=== PATIENT | male | born 1955 | race Caucasian/White ===

== ENCOUNTER → 2021-09-09 13:11 | Outpatient (BNVA) | payer OTHER, SELFPAY | PROVIDERS: Referring Provider Nurse Practitioner; Visit Provider Internal Medicine | DX: E11.65 Type 2 diabetes mellitus with hyperglycemia (principal); E11.69 Type 2 diabetes mellitus with other specified complication; E78.2 Mixed hyperlipidemia; Z87.891 Personal history of nicotine dependence; Z79.4 Long term (current) use of insulin; Z79.84 Long term (current) use of oral hypoglycemic drugs | CPT/HCPCS: 99203; 99204 ==

== ENCOUNTER → 2021-09-17 11:26 | Outpatient (BNVA) | payer OTHER, SELFPAY | PROVIDERS: Referring Provider Nurse Practitioner; Visit Provider Surgery | DX: Z12.11 Encounter for screening for malignant neoplasm of colon (principal); F17.210 Nicotine dependence, cigarettes, uncomplicated | CPT/HCPCS: 99203 ==

== ENCOUNTER 2022-03-31 15:44 | Oncology outpatient (recurring) (ONCR) | payer OTHER, SELFPAY | END 2022-04-13 23:59 | disposition home or self-care (01) | PROVIDERS: PCP Emergency Medicine Emergency Medical Services; Visit Provider Internal Medicine Medical Oncology | DX: D64.9 Anemia, unspecified (principal); Z87.891 Personal history of nicotine dependence; Z79.899 Other long term (current) drug therapy | CPT/HCPCS: 80053; 82728; 83540; 83550; 83615; 83883; 84155; 84165; 85025; 85045; 85651; 99204 ==

== ENCOUNTER 2022-04-23 11:43 | Outpatient (CLI) | payer OTHER, SELFPAY ==
[2022-04-23 14:20] LABS: Occult Blood Stool Negative (Negative)
== END 2022-04-23 11:44 | disposition home or self-care (01) ==
LOC: LAB 11:47
PROVIDERS: PCP Emergency Medicine Emergency Medical Services; Visit Provider Internal Medicine Medical Oncology
DX: D64.9 Anemia, unspecified (principal)
CPT/HCPCS: 82270

== ENCOUNTER 2022-05-19 11:15 | Inpatient (IN) | payer OTHER, SELFPAY ==
[2022-05-19] VITALS (94 sets, daily range): BP systolic 86–174; BP diastolic 53–97; PULSE 75–101; RESP 10–34; TEMP 36.2–37; O2SAT 95–100
--- NOTE | 2022-05-19 11:46 | ED_ITS ---
HPI - Altered Mental Status General: Chief Complaint: Altered Mental Status Stated Complaint: diabetic, not taking his meds Time Seen by Provider: 05/19/22 11:43 Limitations: altered mental status History of Present Illness: Mr. Mcrae is a 66-year-old gentleman with history of type 2 diabetes insulin-dependent presents to the emergency department due to altered mental status and generalized illness. He began having flulike symptoms approximately 3 days ago and has progressively worsened. 2 days ago he was still able to get up to eat a little bit however was essentially found in bed confused with deep respirations by his brother earlier today. Endorses associated nausea, vomiting, abdominal pain as well as shortness of breath and cough. Intensity symptoms is severe. Course has worsened. He reportedly has not been taking his insulin or other medications. History somewhat limited by mental status. Onset (ago): day(s) Severity: severe Consistency of symptoms: Getting Worse Context: diabetes Review of Systems General: Reports: ROS unobtainable due to mental status PFS ED PFSH: Medical History Benign prostatic hyperplasia COPD (chronic obstructive pulmonary disease) Degenerative arthritis Diabetes type 2, uncontrolled Essential (primary) hypertension Mixed hyperlipidemia due to type 2 diabetes mellitus Surgical History No pertinent past surgical history Family History Father Gout Mother No problems noted. Social History Smoking and tobacco status: former smoker Second hand smoke exposure: No Smoking risk assessment/counseling performed?: No Alcohol intake: current Alcohol intake frequency: holidays/special occasions only Alcohol type: beer Desire information about alcohol rehabilitation?: No Counseling given: No Desire information about substance/drug rehabilitation?: No Counseling given: No Adopted: No Caregiver/support person: No Lives independently: Yes Household members: none Housing: House Marital status: Single Highest education level completed: High School Graduate service: Yes Current occupational status: retired History of recent travel: No Physical Exam Const: COMMON NORMALS: alert GENERAL APPEARANCE: cooperative, well developed and ill appearing HENMT: COMMON NORMALS: normocephalic and atraumatic HEAD & SCALP: normocephalic and atraumatic OTHER: Very dry mucous membranes Eye: COMMON NORMALS: Equal, round and reactive pupils present and no scleral icterus SCLERA: sclerae normal PUPIL: Yes Equal, round and reactive pupils present Neck/C-Spine: COMMON NORMALS: supple GENERAL: Yes trachea midline Resp: EFFORT & INSPECTION: Yes able to speak in complete sentences and Yes tachypneic OTHER: Kussmaul respirations Cardio: COMMON NORMALS: regular rate and regular rhythm RATE: regular rate RHYTHM: regular rhythm GI: COMMON NORMALS: Soft to palpation PALPATION: Yes Soft to palpation, Yes Tenderness to palpation present (GI), No Guarding due to palpation present (GI) and No Rigid due to palpation Extremity: GENERAL: Yes normal exam except as noted and No edema Neuro: COMMON NORMALS: moves all extremities SENSORIUM/ORIENTATION: Yes alert and Yes Orientation impaired (Mildly) Course Vital Signs: Vital signs: Vital Signs Temperature 98.8 F 05/22/22 12:18 Pulse Rate 64 05/22/22 12:18 Respiratory Rate 16 05/22/22 12:18 Blood Pressure 125/76 05/22/22 12:18 Pulse Oximetry 98 05/22/22 12:18 Oxygen Delivery Me thod 05/22/22 11:47 MDM - Altered Mental Status Medical Decision Making 66-year-old gentleman with history of insulin-dependent diabetes presenting with a few day history of generalized illness and progressive altered mental status/weakness. Upon initial exam patient is ill-appearing and has findings consistent with diabetic ketoacidosis. Care glucose greater than 600. Initial ABG 6.95/<15.4/131 EKG demonstrates first-degree AV block, sinus rhythm, peaked T waves, no STEMI. Labs notable for leukocytosis, mild macrocytic anemia, thrombocytosis. Metabolic panel with spurious hyponatremia, significantly decreased bicarb, elevated creatinine, significantly elevated glucose, lactic acid also elevated. Additionally positive for influenza. Chest x-ray with no lobar consolidation or pneumothorax. Head CT negative for acute intracranial pathology During ED course patient treated with IV fluid, calcium, insulin drip. Upon serial reassessment patient remains markedly ill though mental status has improved mildly. Most likely etiology of patient's symptoms is fluid induced diabetic ketoacidosis with severe metabolic derangements and altered mental status. The results of ED evaluation were discussed with the patient and his brother including plan for admission due to requirement for level of care not available if discharged to prevent significant worsening/deterioration. Patient agreeable with plan. Discussed with hospitalist service who was agreeable to admit patient. Medical Records I reviewed the patient's medical records. Lab Data I reviewed the patient's lab results. 05/22/22 03:00 05/22/22 03:00 Radiology Impressions Chest X-Ray 05/19/22 11:51 IMPRESSION: 1. Faint right lung density of unclear etiology 2. Otherwise negative chest examination Head CT 05/19/22 12:32 Impression: 1. Moderate cerebral atrophy. 2. Acute and chronic pansinusitis. Abdomen Ultrasound 05/20/22 13:41 IMPRESSION: Hyperechoic soft tissue nodules within the anterior abdominal wall with superficial tracts. These are probably injection sites. Due to the track formation less likely lipomas. Laboratory Results WBC 23.8 10^3/uL (4.0-10.0) H 05/19/22 11:50 RBC 4.01 10^6/uL (4.1-5.3) L 05/19/22 11:50 Hgb 11.6 g/dL (11.7-16.6) L 05/19/22 11:50 Hct 40.2 % (42.0-52.0) L 05/19/22 11:50 MCV 100.2 fl (80-94) H 05/19/22 11:50 MCH 28.9 pg (28.0-34.0) 05/19/22 11:50 MCHC 28.9 g/dL (30.0-36.0) L 05/19/22 11:50 RDW 14.4 % (12.1-15.1) 05/19/22 11:50 Plt Count 884 10^3/cmm (130-400) H 05/19/22 11:50 MPV 10.3 fL (7.4-10.4) 05/19/22 11:50 Neut % (Auto) 77.5 % 05/19/22 11:50 Lymph % (Auto) 5.0 % 05/19/22 11:50 [place] % (Auto) 7.3 % 05/19/22 11:50 Eos % (Auto) 0.0 % 05/19/22 11:50 Baso % (Auto) 0.4 % 05/19/22 11:50 Neut # (Auto) 18.43 10^3/uL (1.8-7.7) H 05/19/22 11:50 Lymph # (Auto) 1.2 10^3/uL (0.8-4.8) 05/19/22 11:50 [place] # (Auto) 1.7 10^3/uL (0.2-0.9) H 05/19/22 11:50 Eos # (Auto) 0.0 10^3/uL (0.0-0.8) 05/19/22 11:50 Baso # (Auto) 0.1 10^3/uL (0.0-0.1) 05/19/22 11:50 Nucleated RBC % (auto) 0.1 % 05/19/22 11:50 Nucleated RBCs # 0.0 /100WBC 05/19/22 11:50 Specimen Type Arterial 05/19/22 12:12 Sample Site Radial, left 05/19/22 12:12 ABG pH 6.95 (7.35-7.45) L* 05/19/22 12:12 ABG pCO2 < 15.4 mmHg (35-45) L* 05/19/22 12:12 ABG pO2 131.0 mmHg (80.0-100.0) H 05/19/22 12:12 ABG HCO3 Not Reportable 05/19/22 12:12 ABG Base Excess Not Reportable 05/19/22 12:12 Amadou Test Pos 05/19/22 12:12 Hematocrit 35.3 % (42-52) L 05/19/22 12:12 O2 Delivery Device Room air 05/19/22 12:12 FiO2 21.0 % 05/19/22 12:12 Inside Sales ID glc 05/19/22 12:12 Blood Gas Notified Time 1230 05/19/22 12:12 Sodium 123 mmol/L (136-145) L 05/19/22 11:50 Potassium 6.9 mmol/L (3.5-5.1) H* 05/19/22 11:50 Chloride 83 mmol/L (98-107) L 05/19/22 11:50 Carbon Dioxide 3 mmol/L (22-29) L* 05/19/22 11:50 Anion Gap 43.9 (5-19) H 05/19/22 11:50 BUN 60 mg/dL (8-23) H 05/19/22 11:50 Creatinine 2.1 mg/dL (0.7-1.2) H 05/19/22 11:50 GFR Calculation 32.0 mL/min (90-130) L 05/19/22 11:50 Glucose 848 mg/dL (65-115) H* 05/19/22 11:50 POC Glucose > 600 mg/dL (70-110) H* 05/19/22 16:53 Calculated Osmolality 315 mOsm/kg (285-295) H 05/19/22 11:50 Lactate 5.6 mmol/L (0.5-2.2) H* 05/19/22 12:25 Calcium 9.6 mg/dL (8.5-10.5) 05/19/22 11:50 Phosphorus 10.5 mg/dL (2.5-4.5) H* 05/19/22 11:50 Magnesium 3.3 mg/dL (1.7-2.3) H 05/19/22 11:50 Total Bilirubin 0.2 mg/dL (0.15-1.2) 05/19/22 11:50 AST 14 U/L (0-40) 05/19/22 11:50 ALT 21 U/L (0-41) 05/19/22 11:50 Alkaline Phosphatase 206 U/L (40-130) H 05/19/22 11:50 Creatine Kinase 49 U/L (39-308) 05/19/22 11:50 Troponin T Baseline 20 ng/L (0-15) H 05/19/22 11:50 Troponin T 120 Minute 21.26 ng/L (0-15) H 05/19/22 14:36 Delta Troponin T 1.26 ABS# (0-10) 05/19/22 14:36 Troponin T Hi Sens 6Hr 21.27 ng/L (0-15) H 05/19/22 17:55 Troponin T Hi Sens 6Hr Delta 1.27 ng/L (0-12) 05/19/22 17:55 Total Protein 7.2 g/dL (6.6-8.7) 05/19/22 11:50 Albumin 3.1 g/dL (3.5-5.2) L 05/19/22 11:50 Globulin 4.1 g/dL (1.3-4.6) 05/19/22 11:50 TSH 0.33 uIU/mL (0.27-4.20) 05/19/22 11:50 Urine Color Yellow (Yellow) 05/19/22 15:00 Urine Appearance Clear (CLEAR) 05/19/22 15:00 Urine pH 5 (5-7) 05/19/22 15:00 Ur Specific Sulphur 1.020 (1.005-1.030) 05/19/22 15:00 Urine Protein Neg (Negative) 05/19/22 15:00 Urine Glucose (UA) 4+ (Normal) H 05/19/22 15:00 Urine Ketones 2+ (Negative) H 05/19/22 15:00 Urine Blood Neg (Negative) 05/19/22 15:00 Urine Nitrate Negative (Negative) 05/19/22 15:00 Urine Bilirubin Neg (Negative) 05/19/22 15:00 Urine Urobilinogen Norm mg/dL (Negative) 05/19/22 15:00 Ur Leukocyte Esterase Negative (Negative) 05/19/22 15:00 Nasal Influ A H1 2009 PCR Detected (NOT DETECT) A 05/19/22 12:12 Serum Ketones Positive (Negative) H 05/19/22 11:50 Adenovirus (PCR) Not detected (NOT DETECT) 05/19/22 12:12 C. pneumoniae DNA (PCR) Not detected (NOT DETECT) 05/19/22 12:12 Coronavirus 229E (PCR) Not detected (NOT DETECT) 05/19/22 12:12 Human Metapneumovir PCR Not detected (NOT DETECT) 05/19/22 12:12 Influenza A (H1) PCR Not detected (NOT DETECT) 05/19/22 12:12 Influenza A (H3) PCR Not detected (NOT DETECT) 05/19/22 12:12 Influenza Type A (PCR) Detected (NOT DETECT) A 05/19/22 12:12 Influenza Type B (PCR) Not detected (NOT DETECT) 05/19/22 12:12 M. pneumoniae (PCR) Not detected (NOT DETECT) 05/19/22 12:12 Parainfluenza 1 (PCR) Not detected (NOT DETECT) 05/19/22 12:12 Parainfluenza 2 (PCR) Not detected (NOT DETECT) 05/19/22 12:12 Parainfluenza 3 (PCR) Not detected (NOT DETECT) 05/19/22 12:12 Parainfluenza 4 (PCR) Not detected (NOT DETECT) 05/19/22 12:12 RSV Type A (PCR) Not detected (NOT DETECT) 05/19/22 12:12 RSV Type B (PCR) Not detected (NOT DETECT) 05/19/22 12:12 Entero/Rhino (PCR) Not detected (NOT DETECT) 05/19/22 12:12 SARS-CoV-2 (PCR) Not detected (NOT DETECT) 05/19/22 12:12 Critical Care Time Critical Care Time: Critical Care Time: Yes Total Critical Care Time: 80 Attestation: Due to a high probability of clinically significant, possibly life threatening deterioration, the patient required my highest level of attention and preparedness to intervene emergently and I personally spent this critical care time directly and personally managing the patient. This critical care time included obtaining a history; examining the patient; pulse oximetry; ordering and review of laboratory and imaging studies; arranging urgent treatment with development of a management plan; evaluation of patient's response to treatment; frequent reassessment; and, discussions with other providers as applicable. It was exclusive of separately billable procedures. Primary system involved is metabolic and infectious disease Discharge Plan Discharge Patient Disposition: Admitted As Inpatient Admit Provider: Hermilo Stevens Clinical Impression: Diabetic ketoacidosis associated with type 2 diabetes mellitus, Altered mental status, Influenza A, Leukocytosis, Thrombocytosis, Anemia, macrocytic, Metabolic acidosis, Dehydration, LATASHA (acute kidney injury) Condition: Stable Discharge Diet: Diabetic Discharge Activity: Increase activity as tolerated Coding Level of Care Code ED Can Filling And Closing Machine Tender for Chg Fwd Exam Comprehensive
--- NOTE | 2022-05-19 11:51 | ECG_ITS ---
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 Measurements Intervals [place] Rate: 79 P: 82 LA: 217 QRS: 84 QRSD: 110 T: 75 QT: 377 QTc: 434 Interpretive Statements SINUS RHYTHM WITH FIRST DEGREE AV BLOCK TALL T-WAVES, SUGGESTS HYPERKALEMIA No previous ECG available for comparison Electronically Signed On 05-19-2022 12:50:50 SAMPLER AND TEST PREPARER by Maryan Faria M.D. [email or web address]/store/[id number]
--- NOTE | 2022-05-19 11:51 | XRR_ITS ---
PROCEDURE INFORMATION: Exam: XR Chest Exam date and time: 05/19/2022 12:35 PM Age: 66 years old Clinical indication: Shortness of breath; Additional info: SOB, AMS TECHNIQUE: Imaging protocol: Radiologic exam of the chest. Views: 1 view. COMPARISON: No relevant prior studies available. FINDINGS: Lungs: There is a faint parenchymal density in the right mid lung measuring 17 mm. This finding is in the projection of the 7th posterior rib. There are no old examinations available to compare this finding with. Therefore oblique views of the chest is recommended to further evaluate this finding . Pleural spaces: Unremarkable. No pleural effusion. No pneumothorax. Heart/Mediastinum: Unremarkable. No cardiomegaly. Bones/joints: Unremarkable. XR/XR chest 1V portable 92450 IMPRESSION: 1. Faint right lung density of unclear etiology 2. Otherwise negative chest examination
[2022-05-19 12:03] LABS: Glucose Point of Care > 600 mg/dL (70-110)
[2022-05-19] MEDS: sodium chloride 0.9% 1,000 ML 999 ML IV ×2 (12:08→12:50)
[2022-05-19 12:10] LABS: Basophils # 0.1 10^3/uL (0.0-0.1); Basophils % 0.4 %; Hematocrit 40.2 % (42.0-52.0); Hemoglobin 11.6 g/dL (11.7-16.6); Lymphocytes # 1.2 10^3/uL (0.8-4.8); Mean Corpuscular HGB Conc 28.9 g/dL (30.0-36.0); Mean Corpuscular Hemoglobin 28.9 pg (28.0-34.0); Mean Corpuscular Volume 100.2 fl (80-94); Mean Platelet Volume 10.3 fL (7.4-10.4); Monocytes # 1.7 10^3/uL (0.2-0.9); Monocytes % 7.3 %; Neutrophils # 18.43 10^3/uL (1.8-7.7); Neutrophils % 77.5 %; Nucleated Red Blood Cells % 0.1 %; Platelet Count 884 10^3/cmm (130-400); Red Blood Count 4.01 10^6/uL (4.1-5.3); Red Cell Distribution Width 14.4 % (12.1-15.1); White Blood Count 23.8 10^3/uL (4.0-10.0)
[2022-05-19 12:12] LABS: Slide Review Slide Review Perform
[2022-05-19 12:21] LABS: Ketone (Acetest) Serum Positive (Negative)
[2022-05-19 12:25] LABS: Arterial Blood Gas Hematocrit 35.3 % (42-52); Blood Gas Allen Test Pos; Blood Gas Operator Identificat glc; Blood Gas Sample Site Radial, left; Blood Gas Sample Type Arterial; Oxygen Device ROOM AIR
[2022-05-19 12:31] LABS: Troponin(5th) Baseline 20 ng/L (0-15)
[2022-05-19 12:32] LABS: ABG PH Result 6.95 (7.35-7.45)
--- NOTE | 2022-05-19 12:32 | CT_ITS ---
WS: [id number] CT scan of the head, 05/19/2022 Clinical Data: ams Comparison: None. DLP: 1106.[address] scans at [facility] use at least one of these dose optimization techniques: automated e xposure control; mA and/or kV adjustment per patient size (includes targeted exams where dose is matc hed to clinical indication); or iterative reconstruction. Findings: The ventricular system is moderately dilated without shift. The sulci are enlarged. No recent infarct or hemorrhage is seen. There are no abnormal intracerebral masses. The cerebellum and brainstem are not remarkable. Bony windows of the skull and skull base show no fractures or erosions. The mastoid air cells, clinical nursing intern al auditory canals, sella turcica and intraorbital contents are unremarkable. There are air-fluid le vels in the sphenoid, ethmoid and right maxillary sinuses along with diffuse mucoperiosteal thickenin g consistent with acute and chronic pansinusitis. CT/CT head wo con* 25001 Impression: 1. Moderate cerebral atrophy. 2. Acute and chronic pansinusitis.
[2022-05-19 12:33] LABS: ABG PCO2 < 15.4 mmHg (35-45)
[2022-05-19 12:34] LABS: Blood Gas CCRB Time 1230
[2022-05-19 12:38] LABS: Alanine Aminotransferase 21 U/L (0-41); Albumin Level 3.1 g/dL (3.5-5.2); Alkaline Phosphatase 206 U/L (40-130); Aspartate Amino Transferase 14 U/L (0-40); Blood Urea Nitrogen 60 mg/dL (8-23); Calcium 9.6 mg/dL (8.5-10.5); Chloride 83 mmol/L (98-107); Creatine Phosphokinase 49 U/L (39-308); Globulin 4.1 g/dL (1.3-4.6); Magnesium 3.3 mg/dL (1.7-2.3); Sodium 123 mmol/L (136-145); Thyroid Stimulating Hormone 0.33 uIU/mL (0.27-4.20); Total Bilirubin 0.2 mg/dL (0.15-1.2); Total Protein 7.2 g/dL (6.6-8.7)
[2022-05-19 12:47] LABS: Osmolality Calculated 315 mOsm/kg (285-295)
[2022-05-19 12:51] LABS: Anion Gap 43.9 (5-19); Carbon Dioxide 3 mmol/L (22-29); Glucose 848 mg/dL (65-115); Phosphorus 10.5 mg/dL (2.5-4.5)
[2022-05-19 12:52] LABS: Potassium 6.9 mmol/L (3.5-5.1)
[2022-05-19 13:04] LABS: Lactate (Lactic Acid level) 5.6 mmol/L (0.5-2.2)
--- NOTE | 2022-05-19 13:51 | ECG_ITS ---
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 Measurements Intervals [place] Rate: 89 P: 86 NC: 224 QRS: 82 QRSD: 122 T: 73 QT: 369 QTc: 450 Interpretive Statements SINUS RHYTHM WITH FIRST DEGREE AV BLOCK MODERATE INTRAVENTRICULAR CONDUCTION DELAY [110+ ms QRS DURATION] TALL T-WAVES, SUGGESTS HYPERKALEMIA Compared to ECG 05/19/2022 12:22:50 Intraventricular conduction delay now present Electronically Signed On 05-19-2022 18:52:27 BEVERAGE HOST by Maryan Faria M.D. [id number]
[2022-05-19 13:55] LABS: Glucose Point of Care > 600 mg/dL (70-110)
[2022-05-19] MEDS: insulin regular-human 250 UNIT in sodium chloride 0.9% 250 ML 22.2 UNIT IV (13:58)
[2022-05-19 14:00] LABS: Adenovirus Not Detected (NOT DETECT); Chlamydia Pneumoniae Not Detected (NOT DETECT); Coronavirus 229E,HKU1,NL63,OC4 Not Detected (NOT DETECT); Human Metapneumovirus Not Detected (NOT DETECT); Human Rhinovirus/Enterovirus Not Detected (NOT DETECT); Influenza A Detected (NOT DETECT); Influenza A H1 Not Detected (NOT DETECT); Influenza A H1-2009 Detected (NOT DETECT); Influenza A H3 Not Detected (NOT DETECT); Influenza B Not Detected (NOT DETECT); Mycoplasma Pneumoniae Not Detected (NOT DETECT); Parainfluenza Virus Type 1 Not Detected (NOT DETECT); Parainfluenza Virus Type 2 Not Detected (NOT DETECT); Parainfluenza Virus Type 3 Not Detected (NOT DETECT); Parainfluenza Virus Type 4 Not Detected (NOT DETECT); Respiratory Syncytial Virus A Not Detected (NOT DETECT); Respiratory Syncytial Virus B Not Detected (NOT DETECT); SARS-COV-2 Not Detected (NOT DETECT)
[2022-05-19] MEDS: calcium gluconate 0.9% NaCL 1 GM/50 ML PREMIX IV (15:09)
--- NOTE | 2022-05-19 15:15 | P.HP_ITS ---
Providers/Chief Complaint Primary Care Provider: Joon Santiago DO Chief Complaint: diabetic, not taking his meds History of Present Illness 66-year-old gentleman with history of DM2, COPD, BPH, HTN, HLD, started feeling unwell about 4-5 days ago, with malaise, fevers, generalized weakness, cough, intermittently productive of yellow phlegm with burning in his chest, as well as intermittent nausea, vomiting and diarrhea episodes. His mother was ill the week before that. His brother has been helping him at home. He has been too weak to be able to eat or drink. Has not been able to take his medications including his insulin. In ER he tested positive for influenza A. He is afebrile here, with leukocytosis 20.8, thrombocytosis 884, hemoglobin 11.6, with metabolic acidosis, 6.95/<15.4/131. Sodium 123, potassium 6.9, chloride 83. Bicarb 3. Anion gap 43.9. BUN 50. Creatinine 2.1. Glucose 848. Lactate 5.6. Phos 10.5. Mag 3.3. Alk phos 206. Baseline troponin 20. Albumin 3.1. TSH 0.33. Positive serum ketones. Urinalysis pending. EKG with first-degree AV block, tall T waves. Head CT moderate cerebral atrophy, acute on chronic pansinusitis. Chest x-ray with faint right lung density of unclear etiology. Otherwise negative chest examination. Received calcium gluconate, 2 L NS boluses, started on insulin drip. He is groggy and lethargic, brother helps fill in history. Review of Systems Const: Reports: fever(s), change in appetite, fatigue and malaise Eyes: Denies: change in vision, eye discomfort or eye redness ENMT: Denies: throat pain, oral sores or ear or mastoid pain Card: Denies: chest pain, edema, pre-syncope or dyspnea on exertion Resp: Reports: productive cough and change in phlegm color; Denies: dyspnea or hemoptysis GI: Reports: nausea, vomiting and diarrhea; Denies: abdominal pain, constipation, hematochezia or melena : Denies: flank pain, difficulty urinating, urinary frequency or hematuria Musc: Denies: back pain, joint swelling or joint redness Skin/Breast: Denies: rash or new lesions Neuro: Denies: headache(s), numbness in extremities, weakness in extremities, dizziness or seizure-like activity Herrera/Lymph: Denies: easy bleeding or tender lymph nodes All/Imm: Denies: urticaria or tongue swelling Medications/Allergies Home Medications Medication Instructions Recorded Confirmed Last Taken Type albuterol sulfate 90 mcg/actuation 2 puff inhalation QID 09/09/21 05/19/22 Unknown History aerosol inhaler (ProAir HFA) glipizide 10 mg tablet 20 mg PO BID 09/09/21 05/19/22 Unknown History metformin 500 mg tablet,extended 500 mg PO BID 09/09/21 05/19/22 Unknown History release 24 hr acarbose 50 mg tablet 50 mg PO TID 03/31/22 05/19/22 Unknown History ferrous sulfate 325 mg (65 mg 325 mg PO DAILY 03/31/22 05/19/22 Unknown History iron) tablet insulin glargine 100 unit/mL 50 unit SUBCUT DAILY 03/31/22 05/19/22 Unknown History subcutaneous solution naproxen 500 mg tablet 500 mg PO BID 03/31/22 05/19/22 Unknown History fluticasone 250 mcg-salmeterol 50 1 inh inhalation BID 05/19/22 05/19/22 Unknown History mcg/dose blistr powdr for inhalation lisinopril 10 mg tablet 5 mg PO DAILY 05/19/22 05/19/22 Unknown History omega-3 fatty acids 500 mg capsule 1,000 mg PO BID 05/19/22 05/19/22 Unknown History Allergies Allergy/AdvReac Type Severity Reaction Status Date / Time No Known Allergies Allergy Verified 05/19/22 12:08 PFSH Acute PFSH: Medical History Benign prostatic hyperplasia COPD (chronic obstructive pulmonary disease) Degenerative arthritis Diabetes type 2, uncontrolled Essential (primary) hypertension Mixed hyperlipidemia due to type 2 diabetes mellitus Surgical History No pertinent past surgical history Family History Father Gout Mother No problems noted. Social History Smoking and tobacco status: former smoker Second hand smoke exposure: No Smoking risk assessment/counseling performed?: No Alcohol intake: current Alcohol intake frequency: holidays/special occasions only Alcohol type: beer Desire information about alcohol rehabilitation?: No Counseling given: No Desire information about substance/drug rehabilitation?: No Counseling given: No Adopted: No Caregiver/support person: No Lives independently: Yes Household members: none Housing: House Marital status: Single Highest education level completed: High School Graduate service: Yes Current occupational status: retired History of recent travel: No Vitals/I&O/Wt Last Vital Signs Temp 97.1 F L 05/19/22 11:39 Pulse 83 05/19/22 12:45 Resp 25 H 05/19/22 12:45 BP 129/66 05/19/22 12:30 Pulse Ox 95 05/19/22 11:39 05/19/22 05/19/22 05/19/22 06:59 14:59 22:59 Intake Total 1000 / 1000 Balance 1000 / 1000 Weight last 48 hrs Weight 56.699 kg Physical Exam Narrative: Accompanied by his brother. Const: GENERAL APPEARANCE: cooperative ORIENTATION/CONSCIOUSNESS: Yes lethargic OTHER: [place]IL HENMT: COMMON NORMALS: oropharynx normal OTHER: Dry MM Neck/C-Spine: COMMON NORMALS: no JVD Resp: COMMON NORMALS: normal respiratory effort and clear to auscultation bilaterally AUSCULTATION: clear to auscultation bilaterally Cardio: COMMON NORMALS: no JVD, regular rhythm, S1 normal heart sound present, S2 normal heart sound present and No murmurs present (Cardio) RHYTHM: regular rhythm HEART SOUNDS: S1 normal heart sound present and S2 normal heart sound present GI: COMMON NORMALS: Normal to inspection, nondistended, normoactive bowel sounds present, Soft to palpation and non-tender PALPATION: Yes Soft to palpation Extremity: COMMON NORMALS: no joint enlargement and no pedal edema Neuro: COMMON NORMALS: patient oriented x3 and moves all extremities SENS ORIUM/ORIENTATION: Yes alert Skin: COMMON NORMALS: no rashes or lesions noted GENERAL SKIN EXAM: no rashes or lesions noted Data 05/19/22 11:50 05/19/22 11:50 Micro: Microbiology 05/19/22 12:25 Blood Culture - Preliminary Blood SPECIMEN COLLECTED 05/19/22 12:25 Blood Culture - Preliminary Blood SPECIMEN COLLECTED A&P Assessment and plan (1) Diabetic ketoacidosis associated with type 2 diabetes mellitus: Continue IV hydration, insulin drip. Recheck chemistries including magnesium, Phos. Monitor on telemetry. Complete troponin EKG series. Continue care in ICU. Measure I&O, weights. NPO, sips, chips, meds. DVT prophylaxis with heparin. PPI GI prophylaxis. Zofran as needed for nausea. (2) LATASHA (acute kidney injury): Suspected prerenal, although may be ATN given he is eating or drink well and days, nausea and vomiting. Home medications also with naproxen. Hold NSAID and would discontinue at discharge. (3) Altered mental status: Lethargic, during the day, but does provide history. He is also hard of hearing. Mild acute encephalopathy possible secondary to acute metabolic encephalopathy with DKA, metabolic status, LATASHA, influenza A. (4) Influenza A: Due to the area of illness although is outside of usual window for influenza we will start Tamiflu as per discussion with his brother. (5) Dehydration: NS 150 mL/h IV hydration, switch to D5 half-normal and glucose is decreasing below 250. (6) Leukocytosis: Suspect this is reactive and with dehydration and acute illness. UA now collected, with resolution of acute infection. Chest x-ray faint right lung density of unclear etiology measuring 17 mm. Otherwise no focal pneumonia. Having COPD distribution. Influenza pneumonia. (7) Thrombocytosis: Secondary to hemoconcentration, dehydration, acute phase reactant. (8) Anemia, macrocytic: Follow-up blood counts. Will need follow-up. He is on iron supplement at home. (9) Metabolic acidosis: DKA hypoperfusion dehydration, lactic acidosis. As above. (10) COPD exacerbation: Influenza pneumonia, episodes of COPD laceration with cough, productive green sputum. Air entry is not bad. For now we will give ceftriaxone empirically. DuoNebs and desonide nebs. Oxygen support as needed. Plan DM2, COPD, BPH, HTN, HLD Attestations Medical Necessity Statement*: Admission of 2 midnights anticipated for assessment management of DKA, influenza A pneumonia, COPD exacerbation, hydration acute encephalopathy. Critical Care Time: The high probability of a clinically significant, sudden or life threatening deterioration of the patient's endocrine, acid-base system(s) required my full and direct attention, intervention and personal ma nagement. The critical care time is as shown. This time is in addition to time spent performing any reported procedures but includes the following: x Data and vital sign review and interpretation x Patient assessment, examination and intervention x Documentation x Medication orders and management Critical Care Time (min): 55 Coding Level of Care Code Acute [place] Wellness Coordinator for [facility] Fwd Diagnoses Diabetic ketoacidosis associated with type 2 diabetes mellitus E11.10 LATASHA (acute kidney injury) N17.9 Altered mental status R41.82 Influenza A J10.1 Dehydration E86.0 Leukocytosis D72.829 Thrombocytosis D75.839 Anemia, macrocytic D53.9 Metabolic acidosis E87.20 COPD exacerbation J44.1
[2022-05-19 15:22] LABS: Add Urine Microscopic? NO; Charge for UA Resulting for Rev
[2022-05-19 15:25] LABS: Bilirubin Urine Neg (Negative); Blood Urine Neg (Negative); Glucose Urine UA 4+ (Normal); Ketones Urine 2+ (Negative); Leukocyte Esterase Urine Negative (Negative); Nitrate Urine Negative (Negative); Protein Urine Neg (Negative); Urine Appearance Clear (CLEAR); Urine Color Yellow (Yellow); Urobilinogen Urine Norm (Negative); pH Urine 5 (5-7)
[2022-05-19 15:27] LABS: Glucose Point of Care > 600 mg/dL (70-110)
[2022-05-19 15:42] LABS: Troponin 5 2HR 21.26 ng/L (0-15)
[2022-05-19 15:44] LABS: Troponin 5 2HR Delta 1.26 ABS# (0-10)
[2022-05-19] MEDS: sodium chloride 0.9% 1,000 ML 150 ML IV ×2 (16:56→23:25)
[2022-05-19 18:24] LABS: Glucose Point of Care > 600 mg/dL (70-110)
[2022-05-19 18:24] LABS: Glucose Point of Care 477 mg/dL (70-110)
[2022-05-19 18:54] LABS: Troponin 5 6HR 21.27 ng/L (0-15)
[2022-05-19 18:55] LABS: Troponin 5 6HR Delta 1.27 ng/L (0-12)
--- NOTE | 2022-05-19 18:55 | ECG_ITS ---
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 Measurements Intervals [place] Rate: 92 P: 81 ND: 183 QRS: 76 QRSD: 92 T: 77 QT: 332 QTc: 413 Interpretive Statements SINUS RHYTHM MINIMAL VOLTAGE CRITERIA FOR LVH, CONSIDER NORMAL VARIANT [MEETS CRITERIA IN ONE OF: R(aVL), S(V1), R(V5), R(V5/V6)+S(V1)] Compared to ECG 05/19/2022 13:48:50 First degree AV block no longer present Intraventricular conduction delay no longer present Electronically Signed On 05-20-2022 7:47:58 TAPE MAKER by Maryan Faria M.D. [id number]
[2022-05-19 19:41] LABS: Glucose Point of Care 464 mg/dL (70-110)
[2022-05-19] MEDS: ipratropium-albuterol 3 mL Neb INHALATION (20:21)
[2022-05-19] MEDS: budesonide 0.5 mg/2 mL Neb 0.25 MG INHALATION (20:21)
[2022-05-19] MEDS: pantoprazole 40 mg SDV IVP (20:56)
[2022-05-19] MEDS: oseltamivir phosphate 75 mg Capsule PO (20:57)
[2022-05-19] MEDS: heparin 5,000 unit/mL INJ 1 mL 5000 UNIT SUBCUT (20:57)
[2022-05-19] MEDS: cefTRIAXone 1,000 MG in sodium chloride 0.9% (plus) 50 ML 100 MG IV (20:57)
[2022-05-19 22:09] LABS: Anion Gap 23.7 (5-19); Blood Urea Nitrogen 55 mg/dL (8-23); Calcium 8.8 mg/dL (8.5-10.5); Carbon Dioxide 12 mmol/L (22-29); Chloride 99 mmol/L (98-107); Glucose 323 mg/dL (65-115); Osmolality Calculated 298 mOsm/kg (285-295); Potassium 4.7 mmol/L (3.5-5.1); Sodium 130 mmol/L (136-145)
[2022-05-19 22:39] LABS: Magnesium 2.4 mg/dL (1.7-2.3); Phosphorus 2.9 mg/dL (2.5-4.5)
[2022-05-19 22:44] LABS: Glucose Point of Care 373 mg/dL (70-110)
[2022-05-19 22:44] LABS: Glucose Point of Care 438 mg/dL (70-110)
[2022-05-19 22:44] LABS: Glucose Point of Care 335 mg/dL (70-110)
[2022-05-20] VITALS (18 sets, daily range): BP systolic 94–152; BP diastolic 49–91; PULSE 56–84; RESP 0–22; TEMP 35.9–37; O2SAT 92–100
[2022-05-20] MEDS: dextrose 5%-sod chloride 0.45% 1,000 ML 150 ML IV ×3 (01:12→19:24)
[2022-05-20 03:03] LABS: Basophils # 0.1 10^3/uL (0.0-0.1); Basophils % 0.2 %; Hematocrit 28.2 % (42.0-52.0); Hemoglobin 9.3 g/dL (11.7-16.6); Lymphocytes % 4.8 %; Mean Corpuscular Hemoglobin 29.1 pg (28.0-34.0); Mean Corpuscular Volume 88.1 fl (80-94); Mean Platelet Volume 9.3 fL (7.4-10.4); Monocytes # 2.2 10^3/uL (0.2-0.9); Monocytes % 10.9 %; Neutrophils # 16.18 10^3/uL (1.8-7.7); Neutrophils % 80.3 %; Nucleated Red Blood Cells % 0 %; Platelet Count 497 10^3/cmm (130-400); Red Cell Distribution Width 13.7 % (12.1-15.1); White Blood Count 20.2 10^3/uL (4.0-10.0)
[2022-05-20 03:39] LABS: Alanine Aminotransferase 16 U/L (0-41); Albumin Level 2.6 g/dL (3.5-5.2); Alkaline Phosphatase 141 U/L (40-130); Anion Gap 15.2 (5-19); Aspartate Amino Transferase 13 U/L (0-40); Blood Urea Nitrogen 41 mg/dL (8-23); Calcium 8.4 mg/dL (8.5-10.5); Carbon Dioxide 20 mmol/L (22-29); Chloride 106 mmol/L (98-107); Glucose 149 mg/dL (65-115); Magnesium 2.2 mg/dL (1.7-2.3); Osmolality Calculated 297 mOsm/kg (285-295); Phosphorus 2.5 mg/dL (2.5-4.5); Potassium 4.2 mmol/L (3.5-5.1); Sodium 137 mmol/L (136-145); Total Bilirubin 0.2 mg/dL (0.15-1.2); Total Protein 5.6 g/dL (6.6-8.7)
[2022-05-20 06:06] LABS: Glucose Point of Care 151 mg/dL (70-110)
[2022-05-20 06:06] LABS: Glucose Point of Care 144 mg/dL (70-110)
[2022-05-20 06:06] LABS: Glucose Point of Care 128 mg/dL (70-110)
[2022-05-20 06:06] LABS: Glucose Point of Care 264 mg/dL (70-110)
[2022-05-20 06:06] LABS: Glucose Point of Care 287 mg/dL (70-110)
[2022-05-20 06:07] LABS: Glucose Point of Care 156 mg/dL (70-110)
[2022-05-20 06:07] LABS: Glucose Point of Care 148 mg/dL (70-110)
[2022-05-20 06:07] LABS: Glucose Point of Care 187 mg/dL (70-110)
[2022-05-20 07:00] LABS: Glucose Point of Care 176 mg/dL (70-110)
[2022-05-20] MEDS: ipratropium-albuterol 3 mL Neb INHALATION ×4 (07:56→20:02)
[2022-05-20] MEDS: budesonide 0.5 mg/2 mL Neb 0.25 MG INHALATION ×2 (07:56→20:03)
[2022-05-20 08:10] LABS: Glucose Point of Care 204 mg/dL (70-110)
[2022-05-20] MEDS: oseltamivir phosphate 75 mg Capsule PO ×2 (08:57→17:01)
[2022-05-20] MEDS: heparin 5,000 unit/mL INJ 1 mL 5000 UNIT SUBCUT ×2 (08:57→19:37)
[2022-05-20 09:07] LABS: Glucose Point of Care 235 mg/dL (70-110)
[2022-05-20] MEDS: insulin regular-human 250 UNIT in sodium chloride 0.9% 250 ML 10.5 UNIT IV (09:16)
[2022-05-20 10:14] LABS: Glucose Point of Care 267 mg/dL (70-110)
[2022-05-20 11:07] LABS: Glucose Point of Care 283 mg/dL (70-110)
[2022-05-20 11:49] LABS: Blood Urea Nitrogen 36 mg/dL (8-23); Calcium 8.2 mg/dL (8.5-10.5); Carbon Dioxide 19 mmol/L (22-29); Chloride 105 mmol/L (98-107); Glucose 268 mg/dL (65-115); Magnesium 2.1 mg/dL (1.7-2.3); Osmolality Calculated 296 mOsm/kg (285-295); Phosphorus 2.6 mg/dL (2.5-4.5); Sodium 134 mmol/L (136-145)
[2022-05-20 11:50] LABS: Anion Gap 13.9 (5-19); Potassium 3.9 mmol/L (3.5-5.1)
[2022-05-20] MEDS: sodium chloride 0.9% 1,000 ML 150 ML IV ×2 (11:58→18:51)
[2022-05-20 12:04] LABS: Glucose Point of Care 244 mg/dL (70-110)
[2022-05-20 13:19] LABS: Glucose Point of Care 151 mg/dL (70-110)
--- NOTE | 2022-05-20 13:41 | US_ITS ---
WS: [id number] ULTRASOUND SOFT TISSUES abdominal wall. HISTORY: anterior abdominal wall bilateral lumps COMPARISON: None available. TECHNIQUE: 2-D and color Doppler imaging is submitted. Hyperechoic areas within the abdominal wall correspond to the palpable abnormalities. There are sever al hyperechoic ill-defined nodules identified. The largest measures approximately 4.6 x 2.3 cm and th ere is a tract extending superficial. As per the patient these are injection sites. US/US abdomen limited [id number] IMPRESSION: Hyperechoic soft tissue nodules within the anterior abdominal wall with superfi cial tracts. These are probably injection sites. Due to the track formation les s likely lipomas.
--- NOTE | 2022-05-20 13:47 | P.PN_ITS ---
Subjective Subjective: He is still lethargic, but today wakes up easily. Hard of hearing, but responds to loud voice. States that he is feeling better. Not bothered by any pain. States that he could eat something. Does not feel that he is coughing a lot. Denies chest pain. Vitals/I&O/Wt Last Vital Signs Temp 97.7 F 05/20/22 08:00 Pulse 84 05/20/22 11:43 Resp 16 05/20/22 11:38 BP 108/58 05/20/22 10:00 Pulse Ox 98 05/20/22 11:38 O2 Del Method 05/20/22 11:38 05/19/22 05/20/22 05/20/22 22:59 06:59 14:59 Intake Total 362.551 / 2362.551 1301.96 / 3664.511 1441.977 / 1441.977 Output Total 2500 / 2500 525 / 525 Balance 362.551 / 2362.551 -1198.04 / 1164.511 916.977 / 916.977 Weight last 48 hrs Weight 61.462 kg Weight 56.699 kg Physical Exam Const: COMMON NORMALS: patient oriented x3 and alert GENERAL APPEARANCE: co operative and lethargic ORIENTATION/CONSCIOUSNESS: Yes lethargic OTHER: VIEJAS HENMT: COMMON NORMALS: oropharynx normal OTHER: Dry MM Neck/C-Spine: COMMON NORMALS: no JVD Resp: COMMON NORMALS: normal respiratory effort and clear to auscultation bilaterally AUSCULTATION: clear to auscultation bilaterally Cardio: COMMON NORMALS: no JVD, regular rhythm, S1 normal heart sound present, S2 normal heart sound present and No murmurs present (Cardio) RHYTHM: regular rhythm HEART SOUNDS: S1 normal heart sound present and S2 normal heart sound present GI: COMMON NORMALS: Normal to inspection, nondistended, normoactive bowel so unds present, Soft to palpation and non-tender PALPATION: Yes Soft to pal pation Extremity: COMMON NORMALS: no joint enlargement and no pedal edema Neuro: COMMON NORMALS: patient oriented x3 and moves all extremities SENSORIUM/ORIENTATION: Yes alert and Yes lethargic Skin: COMMON NORMALS: no rashes or lesions noted GENERAL SKIN EXAM: no rashes or lesions noted Urinary Catheter Management: Franco: Cath Placed During This Visit: yes Reason for Continuing Indwelling Catheter: Accurate Measurement of Urinary Output in Critically Ill Patients Urinary Catheter Date of Insertion: 05/19/22 Urinary Catheter Time of Insertion: 17:12 Data 05/20/22 02:47 05/20/22 11:20 Micro: Microbiology 05/19/22 12:25 Blood Culture - Preliminary Blood NEGATIVE TO DATE 05/19/22 12:25 Blood Culture - Preliminary Blood NEGATIVE TO DATE A&P Assessment and plan (1) Diabetic ketoacidosis associated with type 2 diabetes mellitus: Parameters have been improving overnight, with improving bicarb, anion gap, however, noted increasing insulin requirement this morning, worsening glucose, switching fluid back to NS, continue insulin drip. Remains n.p.o. for now. Follow-up additional chemistries. Magnesium and Phos checked as well and are okay. Continue IV hydration. Mild troponin elevation no suggestion of NC by EKG, he is chest pain-free. Monitor on telemetry. Continue care in ICU. Measure I&O, weights. NPO, sips, chips, meds. DVT prophylaxis with heparin. PPI GI prophylaxis. Zofran as needed for nausea. (2) LATASHA (acute kidney injury): With good improvement, creatinine 0.9. Suspected prerenal, although may be ATN given he is eating or drink well and days, nausea and vomiting. Home medications also with naproxen. Hold NSAID and would discontinue at discharge. (3) Altered mental status: Still lethargic this morning, but more responsive. Continue treatment of DKA, IV rehydration. Lethargic, during the day, but does provide history. He is also hard of hearing. Mild acute encephalopathy possible secondary to acute metabolic encephalopathy with DKA, metabolic status, LATASHA, influenza A. Head CT with moderate cerebral atrophy, acute on chronic pansinusitis. (4) Influenza A: Tamiflu. Doing well on room air. Due to the area of illness although is outside of usual window for influenza we will start Tamiflu as per discussion with his brother. (5) Dehydration: Continue NS 150 mL/h IV hydration, switch to D5 half-normal and glucose is decreasing below 250. (6) Leukocytosis: Suspect this is reactive and with dehydration and acute illness. UA now collected, without suggestion of acute infection. Chest x-ray faint right lung density of unclear etiology measuring 17 mm. Otherwise no focal pneumonia. Having COPD exacerbation. Influenza pneumonia. (7) Thrombocytosis: Improving. Platelet count 497. Secondary to hemoconcentration, dehydration, acute phase reactant. (8) Anemia, macrocytic: Follow-up blood counts. Will need follow-up. He is on iron supplement at home. (9) Metabolic acidosis: DKA hypoperfusion dehydration, lactic acidosis. As above. (10) COPD exacerbation: Influenza pneumonia, episodes of COPD laceration with cough, productive green sputum. Air entry is not bad. Continue ceftriaxone empirically. DuoNebs and budesonide nebs. Oxygen support as needed. Sputum culture requested. Plan DM2, COPD, BPH, HTN, HLD Attestations Medical Necessity Statement*: Continue admission for assessment management of DKA, acute encephalopathy, influenza A. Coding Level of Care Code Acute Practice Office Associate for [facility] Fwd Diagnoses Diabetic ketoacidosis associated with type 2 diabetes mellitus E11.10 LATASHA (acute kidney injury) N17.9 Altered mental status R41.82 Influenza A J10.1 Dehydration E86.0 Leukocytosis D72.829 Thrombocytosis D75.839 Anemia, macrocytic D53.9 Metabolic acidosis E87.20 COPD exacerbation J44.1
--- NOTE | 2022-05-20 14:07 | PC.NURSE ---
Patient's Insulin requirements have been trending upwards this morning. Started at 7.2, by 1100 the insulin was running at 18.6 units/hr per protocol. NUrse alerted Dr carballo. Received orders to change D51/2 to NS.
[2022-05-20 14:23] LABS: Glucose Point of Care 121 mg/dL (70-110)
[2022-05-20 15:32] LABS: Glucose Point of Care 84 mg/dL (70-110)
[2022-05-20 16:34] LABS: Glucose Point of Care 60 mg/dL (70-110)
[2022-05-20 17:11] LABS: Anion Gap 12.6 (5-19); Blood Urea Nitrogen 32 mg/dL (8-23); Calcium 8.3 mg/dL (8.5-10.5); Carbon Dioxide 21 mmol/L (22-29); Chloride 108 mmol/L (98-107); Glomerular Filtration Rate 113.5 mL/min (90-130); Glucose 51 mg/dL (65-115); Osmolality Calculated 290 mOsm/kg (285-295); Potassium 3.6 mmol/L (3.5-5.1); Sodium 138 mmol/L (136-145)
--- NOTE | 2022-05-20 17:24 | PC.NURSE ---
At 1600, patient's BG was 60. Nurse shut off insulin drip and notified physician. at 1700, blood sugar was 46. Patient is asymptomatic for hypoglycemia. Dr Stevens ordered oral juice rather than D50 IV.
[2022-05-20 17:28] LABS: Glucose Point of Care 47 mg/dL (70-110)
[2022-05-20 18:08] LABS: Glucose Point of Care 54 mg/dL (70-110)
--- NOTE | 2022-05-20 18:34 | PC.NURSE ---
Shift SUmmary: Patient has remained lethargic throughout the day, more easily woken up verbally compared to this morning. Has been on an insulin drip throughout the day, when he was on D51/2 his blood sugar continued to climb despite insulin drip, when D51/2 was changed to NS, he had become hypo glycemic. Juice given for low BP due to him being asymptomatic and the physician not wanting to cause to high of a blood sugar spike with D50. Anion gap is now closed.
[2022-05-20 18:58] LABS: Glucose Point of Care 66 mg/dL (70-110)
--- NOTE | 2022-05-20 19:07 | PC.NURSE ---
BG checked again at 1900. B. Nurse alerted Dr carballo. New orders received, NS canceled and D51/2 ordered. Insulin protocols still active.
[2022-05-20] MEDS: pantoprazole 40 mg SDV IVP (19:37)
[2022-05-20] MEDS: cefTRIAXone 1,000 MG in sodium chloride 0.9% (plus) 50 ML 100 MG IV (19:38)
[2022-05-21] VITALS (17 sets, daily range): BP systolic 105–153; BP diastolic 62–82; PULSE 57–76; RESP 11–21; TEMP 36.1–37.3; O2SAT 95–100
[2022-05-21 00:02] LABS: Glucose Point of Care 99 mg/dL (70-110)
[2022-05-21 00:02] LABS: Glucose Point of Care 145 mg/dL (70-110)
[2022-05-21 00:02] LABS: Glucose Point of Care 138 mg/dL (70-110)
[2022-05-21 00:02] LABS: Glucose Point of Care 128 mg/dL (70-110)
[2022-05-21 00:02] LABS: Glucose Point of Care 149 mg/dL (70-110)
[2022-05-21] MEDS: dextrose 5%-sod chloride 0.45% 1,000 ML 150 ML IV ×2 (02:36→09:25)
[2022-05-21 02:43] LABS: Basophils % 0.1 %; Eosinophils % 0.1 %; Hematocrit 25.3 % (42.0-52.0); Hemoglobin 8.3 g/dL (11.7-16.6); Mean Corpuscular HGB Conc 32.8 g/dL (30.0-36.0); Mean Corpuscular Hemoglobin 28.9 pg (28.0-34.0); Mean Corpuscular Volume 88.2 fl (80-94); Mean Platelet Volume 9.5 fL (7.4-10.4); Monocytes # 1.1 10^3/uL (0.2-0.9); Monocytes % 6.7 %; Neutrophils # 14.41 10^3/uL (1.8-7.7); Neutrophils % 85.7 %; Nucleated Red Blood Cells % 0 %; Platelet Count 462 10^3/cmm (130-400); Red Blood Count 2.87 10^6/uL (4.1-5.3); Red Cell Distribution Width 14.1 % (12.1-15.1); White Blood Count 16.8 10^3/uL (4.0-10.0)
[2022-05-21 03:03] LABS: Alanine Aminotransferase 13 U/L (0-41); Albumin Level 2.3 g/dL (3.5-5.2); Alkaline Phosphatase 121 U/L (40-130); Anion Gap 10.4 (5-19); Aspartate Amino Transferase 15 U/L (0-40); Blood Urea Nitrogen 23 mg/dL (8-23); Calcium 8.1 mg/dL (8.5-10.5); Carbon Dioxide 22 mmol/L (22-29); Chloride 106 mmol/L (98-107); Globulin 2.6 g/dL (1.3-4.6); Glomerular Filtration Rate 113.5 mL/min (90-130); Glucose 165 mg/dL (65-115); Osmolality Calculated 287 mOsm/kg (285-295); Potassium 3.4 mmol/L (3.5-5.1); Sodium 135 mmol/L (136-145); Total Bilirubin 0.2 mg/dL (0.15-1.2); Total Protein 4.9 g/dL (6.6-8.7)
[2022-05-21 07:09] LABS: Glucose Point of Care 170 mg/dL (70-110)
[2022-05-21 07:09] LABS: Glucose Point of Care 173 mg/dL (70-110)
[2022-05-21 07:09] LABS: Glucose Point of Care 154 mg/dL (70-110)
[2022-05-21 07:09] LABS: Glucose Point of Care 186 mg/dL (70-110)
[2022-05-21 07:09] LABS: Glucose Point of Care 152 mg/dL (70-110)
[2022-05-21 07:09] LABS: Glucose Point of Care 178 mg/dL (70-110)
[2022-05-21 07:36] LABS: Glucose Point of Care 178 mg/dL (70-110)
[2022-05-21] MEDS: heparin 5,000 unit/mL INJ 1 mL 5000 UNIT SUBCUT ×2 (07:51→19:59)
[2022-05-21] MEDS: ipratropium-albuterol 3 mL Neb INHALATION ×4 (08:20→21:31)
[2022-05-21] MEDS: budesonide 0.5 mg/2 mL Neb 0.25 MG INHALATION ×2 (08:20→21:30)
[2022-05-21 09:20] LABS: Glucose Point of Care 185 mg/dL (70-110)
[2022-05-21] MEDS: insulin glargine 100 units/1 mL 50 UNIT SUBCUT (09:25)
[2022-05-21] MEDS: oseltamivir phosphate 75 mg Capsule PO ×2 (09:25→17:55)
--- NOTE | 2022-05-21 09:44 | PM.PN ---
Subjective Subjective: Dearl reports he is feeling better than on admission. He denies any pain. Denies any alcohol use. Does feel significantly weak. Medications: Reviewed: Yes Vitals/I&O/Wt Last Vital Signs Temp 96.9 F L 05/21/22 08:00 Pulse 70 05/21/22 08:21 Resp 16 05/21/22 08:21 BP 134/76 05/21/22 08:00 Pulse Ox 96 05/21/22 08:21 O2 Del Method 05/21/22 08:21 05/20/22 05/21/22 05/21/22 22:59 06:59 14:59 Intake Total 1141.386 / 2647.923 1158.5 / 3806.423 1360 / 1360 Output Total 400 / 1175 950 / 2125 Balance 741.386 / 1472.923 208.5 / 3772.891 1410 / 1360 Weight last 48 hrs Weight 61.462 kg Weight 61.462 kg Weight 56.699 kg Physical Exam Narrative: General exam no distress, alert and conversive Neck is supple no lymphadenopathy or thyromegaly Cardiovascular regular rate and rhythm with a 2/6 systolic murmur Lungs clear no wheezing or crackles Abdomen is soft, positive bowel sounds. No obvious organomegaly. Some bumpiness to his anterior abdominal wall consistent with fat necrosis but no evidence of infection exam is deferred Extremities no cyanosis clubbing or edema, cap refill brisk Skin no rash Neuro no obvious focal deficits. Urinary Catheter Management: Franco: Cath Placed During This Visit: yes Reason for Continuing Indwelling Catheter: Accurate Measurement of Urinary Output in Critically Ill Patients Urinary Catheter Date of Insertion: 05/19/22 Urinary Catheter Time of Insertion: 17:12 Data 05/21/22 02:11 05/21/22 02:11 Micro: Microbiology 05/19/22 12:25 Blood Culture - Preliminary Blood NEGATIVE TO DATE 05/19/22 12:25 Blood Culture - Preliminary Blood NEGATIVE TO DATE A&P Assessment and plan (1) Diabetic ketoacidosis associated with type 2 diabetes mellitus: Anion gap is closed Transition to subcutaneous insulin Moderate sliding scale insulin Reduce hydration (2) LATASHA (acute kidney injury): Resolved Hold all anti-inflammatories (3) Altered mental status: Mental status appears to be at baseline Head CT no acute changes Did have pansinusitis on head CT. (4) Influenza A: Continue Tamiflu (5) Dehydration: Resolved (6) Leukocytosis: Improving Continue Rocephin for possible pneumonia (7) Thrombocytosis: Improved (8) Anemia, macrocytic: Significantly anemic Stool Hemoccult Avoid anti-inflammatories Continue Protonix (9) Metabolic acidosis: Secondary to DKA, resolved (10) COPD exacerbation: Continue pulmonary toilet Plan Weakness, physical therapy consultation other medical problems as listed in past medical history Discontinue Franco Appropriate for transfer out of ICU later today Attestations Medical Necessity Statement*: Needs continued hospital stay secondary to episode of DKA, influenza A, severe weakness Coding Level of Care Code Acute Financial Coordinator for [facility] Fwd Diagnoses Diabetic ketoacidosis associated with type 2 diabetes mellitus E11.10 LATASHA (acute kidney injury) N17.9 Altered mental status R41.82 Influenza A J10.1 Dehydration E86.0 Leukocytosis D72.829 Thrombocytosis D75.839 Anemia, macrocytic D53.9 Metabolic acidosis E87.20 COPD exacerbation J44.1
[2022-05-21 10:39] LABS: Magnesium 1.8 mg/dL (1.7-2.3)
[2022-05-21] MEDS: potassium chloride ER 20 mEq Tablet 40 MEQ PO (10:45)
[2022-05-21 10:56] LABS: Glucose Point of Care 317 mg/dL (70-110)
[2022-05-21 11:32] LABS: Glucose Point of Care 272 mg/dL (70-110)
[2022-05-21] MEDS: insulin lispro 100 unit/1 mL SUBCUT (13:09)
[2022-05-21 16:44] LABS: Glucose Point of Care 103 mg/dL (70-110)
[2022-05-21] MEDS: cefTRIAXone 1,000 MG in sodium chloride 0.9% (plus) 50 ML 100 MG IV (19:58)
[2022-05-21] MEDS: pantoprazole 40 mg SDV IVP (19:58)
[2022-05-21 21:20] LABS: Glucose Point of Care 62 mg/dL (70-110)
[2022-05-21 21:20] LABS: Glucose Point of Care 42 mg/dL (70-110)
[2022-05-21 22:34] LABS: Glucose Point of Care 92 mg/dL (70-110)
--- NOTE | 2022-05-21 23:14 | PC.NURSE ---
blood sugar at 2100 was 42,patient asymptomatic, alert/oriented, juice provided, 15 min check, bs up to 62, consumed timothy cracker, recheck bs-92.
[2022-05-22] VITALS (7 sets, daily range): BP systolic 108–131; BP diastolic 58–76; PULSE 63–76; RESP 16–18; TEMP 36.6–37.1; O2SAT 97–99
[2022-05-22 03:08] LABS: Basophils % 0.2 %; Eosinophils % 0.2 %; Hematocrit 26.5 % (42.0-52.0); Hemoglobin 8.5 g/dL (11.7-16.6); Lymphocytes # 1.1 10^3/uL (0.8-4.8); Lymphocytes % 9.5 %; Mean Corpuscular HGB Conc 32.1 g/dL (30.0-36.0); Mean Corpuscular Hemoglobin 28.5 pg (28.0-34.0); Mean Corpuscular Volume 88.9 fl (80-94); Mean Platelet Volume 9.3 fL (7.4-10.4); Monocytes # 0.8 10^3/uL (0.2-0.9); Monocytes % 7.2 %; Neutrophils # 9.19 10^3/uL (1.8-7.7); Neutrophils % 81.7 %; Nucleated Red Blood Cells % 0 %; Platelet Count 458 10^3/cmm (130-400); Red Blood Count 2.98 10^6/uL (4.1-5.3); Red Cell Distribution Width 14.4 % (12.1-15.1); White Blood Count 11.2 10^3/uL (4.0-10.0)
[2022-05-22 03:34] LABS: Alanine Aminotransferase 19 U/L (0-41); Albumin Level 2.3 g/dL (3.5-5.2); Alkaline Phosphatase 139 U/L (40-130); Anion Gap 9.6 (5-19); Aspartate Amino Transferase 24 U/L (0-40); Blood Urea Nitrogen 16 mg/dL (8-23); Calcium 8.4 mg/dL (8.5-10.5); Carbon Dioxide 29 mmol/L (22-29); Chloride 105 mmol/L (98-107); Globulin 3.2 g/dL (1.3-4.6); Glomerular Filtration Rate 135.6 mL/min (90-130); Glucose 54 mg/dL (65-115); Osmolality Calculated 289 mOsm/kg (285-295); Potassium 3.6 mmol/L (3.5-5.1); Sodium 140 mmol/L (136-145); Total Bilirubin 0.3 mg/dL (0.15-1.2); Total Protein 5.5 g/dL (6.6-8.7)
--- NOTE | 2022-05-22 06:46 | PC.NURSE ---
blood sugar 52 this am, asymptomatic, orange juice/timothy crackers provided, on coming nurse informed, oncoming banquet attendant notified, to recheck at 0700.
[2022-05-22 06:49] LABS: Glucose Point of Care 52 mg/dL (70-110)
[2022-05-22 07:11] LABS: Glucose Point of Care 106 mg/dL (70-110)
[2022-05-22] MEDS: heparin 5,000 unit/mL INJ 1 mL 5000 UNIT SUBCUT (08:11)
[2022-05-22] MEDS: oseltamivir phosphate 75 mg Capsule PO (08:12)
[2022-05-22] MEDS: budesonide 0.5 mg/2 mL Neb 0.25 MG INHALATION (08:34)
[2022-05-22] MEDS: ipratropium-albuterol 3 mL Neb INHALATION ×2 (08:35→11:15)
[2022-05-22 11:39] LABS: Glucose Point of Care 303 mg/dL (70-110)
--- NOTE | 2022-05-22 11:57 | P.DS_ITS ---
Discharge Providers Date of Admission: 05/19/22 18:04 Date of Discharge: May 22, 2022 Attending Provider at Admission: Hermilo Stevens Attending Provider at Discharge: Hermilo Stevens Primary Care Provider: Joon Santiago DO Diagnoses at Discharge Discharge Diagnosis (1) Diabetic ketoacidosis associated with type 2 diabetes mellitus: Status: Acute (2) LATASHA (acute kidney injury): Status: Acute (3) Altered mental status: Status: Acute (4) Influenza A: Status: Acute (5) Dehydration: Status: Acute (6) Leukocytosis: Status: Acute (7) Thrombocytosis: Status: Acute (8) Anemia, macrocytic: Status: Acute (9) Metabolic acidosis: Status: Acute (10) COPD exacerbation: Status: Acute Reason for Visit Reason for Visit: diabetic, not taking his meds Hospital Course Hospital Course Pleasant 66-year-old gentleman was admitted due to 4-5 days severe malaise, worsening, with acute encephalopathy, fevers, generalized weakness, cough, productive cough, on presentation found to have influenza A pneumonia, COPD exacerbation, acute metabolic encephalopathy secondary to DKA, LATASHA, dehydration, received treatment with IV fluids, insulin drip, NSAIDs were held, with improvement in renal function with treatment, initiated with Tamiflu while in the hospital for influenza a as well as duo nebs, budesonide inhalation, ceftriaxone for COPD exacerbation. His condition gradually improved. He transitioned to subcutaneous insulin yesterday. Dehydration improved. Encepha lopathy resolved. He is feeling much better, feels ready to return home. To being ill at home he had missed insulin doses with DKA likely secondary to acute illness, insulin. He otherwise injects insulin but appears to have developed a lot of scar tissue and anterior abdominal wall, discussed with him rotation of injection sites, request education. Please revisit with him in office. His LATASHA has resolved. Avoid NSAIDs. Follow-up with him regarding anemia, referral for endoscopic ablation of iron deficiency anemia deficiency anemia if he has not had any recently. Physical Exam Const: COMMON NORMALS: patient oriented x3 and alert GENERAL APPEARANCE: cooperative ORIENTATION/CONSCIOUSNESS: Yes awake HENMT: COMMON NORMALS: oropharynx normal Neck/C-Spine: COMMON NORMALS: no JVD Resp: COMMON NORMALS: normal respiratory effort and clear to auscultation bilaterally AUSCULTATION: clear to auscultation bilaterally Cardio: COMMON NORMALS: no JVD, regular rhythm, S1 normal heart sound present, S2 normal heart sound present and No murmurs present (Cardio) RHYTHM: regular rhythm HEART SOUNDS: S1 normal heart sound present and S2 normal heart sound present GI: COMMON NORMALS: Normal to inspection, nondistended, normoactive bowel sounds present, Soft to palpation and non-tender PALPATION: Yes Soft to palpation Extremity: COMMON NORMALS: no joint enlargement and no pedal edema Neuro: COMMON NORMALS: patient oriented x3 and moves all extremities SENSORIUM/ORIENTATION: Yes alert Skin: COMMON NORMALS: no rashes or lesions noted GENERAL SKIN EXAM: no rashes or lesions noted Urinary Catheter Management: Franco: Cath Placed During This Visit: yes Reason for Continuing Indwelling Catheter: Accurate Measurement of Urinary Output in Critically Ill Patients Urinary Catheter Date of Insertion: 05/19/22 Urinary Catheter Time of Insertion: 17:12 Discharge Data Studies Completed and Pending Completed Studies During Hospitalization Category Date Time Status CT head wo con* [id number] Stat Cat Scan 05/19/22 12:32 Completed XR chest 1V portable [id number] Stat Exams 05/19/22 11:51 Completed US abdomen limited [id number] Routine Ultrasound 05/20/22 13:41 Completed Pending at discharge Category Date Time Status Blood Culture Stat Lab 05/19/22 12:25 Results Fecal Occult Blood [Immunochemical Fecal OCB] Routine Lab 05/21/22 09:50 Uncollected Sputum Culture and Gram Stain Routine Lab 05/19/22 19:49 Uncollected Radiology Impressions Chest X-Ray 05/19/22 11:51 IMPRESSION: 1. Faint right lung density of unclear etiology 2. Otherwise negative chest examination Head CT 05/19/22 12:32 Impression: 1. Moderate cerebral atrophy. 2. Acute and chronic pansinusitis. Abdomen Ultrasound 05/20/22 13:41 IMPRESSION: Hyperechoic soft tissue nodules within the anterior abdominal wall with superficial tracts. These are probably injection sites. Due to the track formation less likely lipomas. Laboratory Results WBC 11.2 10^3/uL (4.0-10.0) H 05/22/22 03:00 RBC 2.98 10^6/uL (4.1-5.3) L 05/22/22 03:00 Hgb 8.5 g/dL (11.7-16.6) L 05/22/22 03:00 Hct 26.5 % (42.0-52.0) L 05/22/22 03:00 MCV 88.9 fl (80-94) 05/22/22 03:00 MCH 28.5 pg (28.0-34.0) 05/22/22 03:00 MCHC 32.1 g/dL (30.0-36.0) 05/22/22 03:00 RDW 14.4 % (12.1-15.1) 05/22/22 03:00 Plt Count 458 10^3/cmm (130-400) H 05/22/22 03:00 MPV 9.3 fL (7.4-10.4) 05/22/22 03:00 Neut % (Auto) 81.7 % 05/22/22 03:00 Lymph % (Auto) 9.5 % 05/22/22 03:00 Mellette % (Auto) 7.2 % 05/22/22 03:00 Eos % (Auto) 0.2 % 05/22/22 03:00 Baso % (Auto) 0.2 % 05/22/22 03:00 Neut # (Auto) 9.19 10^3/uL (1.8-7.7) H 05/22/22 03:00 Lymph # (Auto) 1.1 10^3/uL (0.8-4.8) 05/22/22 03:00 Mellette # (Auto) 0.8 10^3/uL (0.2-0.9) 05/22/22 03:00 Eos # (Auto) 0.0 10^3/uL (0.0-0.8) 05/22/22 03:00 Baso # (Auto) 0.0 10^3/uL (0.0-0.1) 05/22/22 03:00 Nucleated RBC % (auto) 0 % 05/22/22 03:00 Nucleated RBCs # 0.0 /100WBC 05/22/22 03:00 Specimen Type Arterial 05/19/22 12:12 Sample Site Radial, left 05/19/22 12:12 ABG pH 6.95 (7.35-7.45) L* 05/19/22 12:12 ABG pCO2 < 15.4 mmHg (35-45) L* 12/06/22 12:12 ABG pO2 131.0 mmHg (80.0-100.0) H 05/19/22 12:12 ABG HCO3 Not Reportable 05/19/22 12:12 ABG Base Excess Not Reportable 05/19/22 12:12 Amadou Test Pos 05/19/22 12:12 Hematocrit 35.3 % (42-52) L 05/19/22 12:12 O2 Delivery Device Room air 05/19/22 12:12 FiO2 21.0 % 05/19/22 12:12 Casting Inspector ID glc 05/19/22 12:12 Blood Gas Notified Time 1230 05/19/22 12:12 Sodium 140 mmol/L (136-145) 05/22/22 03:00 Potassium 3.6 mmol/L (3.5-5.1) 05/22/22 03:00 Chloride 105 mmol/L (98-107) 05/22/22 03:00 Carbon Dioxide 29 mmol/L (22-29) 05/22/22 03:00 Anion Gap 9.6 (5-19) 05/22/22 03:00 BUN 16 mg/dL (8-23) 05/22/22 03:00 Creatinine 0.6 mg/dL (0.7-1.2) L 05/22/22 03:00 GFR Calculation 135.6 mL/min (90-130) H 05/22/22 03:00 Glucose 54 mg/dL (65-115) L 05/22/22 03:00 POC Glucose 303 mg/dL (70-110) H 05/22/22 11:30 Calculated Osmolality 289 mOsm/kg (285-295) 05/22/22 03:00 Lactate 5.6 mmol/L (0.5-2.2) H* 05/19/22 12:25 Calcium 8.4 mg/dL (8.5-10.5) L 05/22/22 03:00 Phosphorus 2.6 mg/dL (2.5-4.5) 05/20/22 11:20 Magnesium 1.8 mg/dL (1.7-2.3) 05/21/22 09:58 Total Bilirubin 0.3 mg/dL (0.15-1.2) 05/22/22 03:00 AST 24 U/L (0-40) 05/22/22 03:00 ALT 19 U/L (0-41) 05/22/22 03:00 Alkaline Phosphatase 139 U/L (40-130) H 05/22/22 03:00 Creatine Kinase 49 U/L (39-308) 05/19/22 11:50 Troponin T Baseline 20 ng/L (0-15) H 05/19/22 11:50 Troponin T 120 Minute 21.26 ng/L (0-15) H 05/19/22 14:36 Delta Troponin T 1.26 ABS# (0-10) 05/19/22 14:36 Troponin T Hi Sens 6Hr 21.27 ng/L (0-15) H 05/19/22 17:55 Troponin T Hi Sens 6Hr Delta 1.27 ng/L (0-12) 05/19/22 17:55 Total Protein 5.5 g/dL (6.6-8.7) L 05/22/22 03:00 Albumin 2.3 g/dL (3.5-5.2) L 05/22/22 03:00 Globulin 3.2 g/dL (1.3-4.6) 05/22/22 03:00 TSH 0.33 uIU/mL (0.27-4.20) 05/19/22 11:50 Urine Color Yellow (Yellow) 05/19/22 15:00 Urine Appearance Clear (CLEAR) 05/19/22 15:00 Urine pH 5 (5-7) 05/19/22 15:00 Ur Specific [place] 1.020 (1.005-1.030) 05/19/22 15:00 Urine Protein Neg (Negative) 05/19/22 15:00 Urine Glucose (UA) 4+ (Normal) H 05/19/22 15:00 Urine Ketones 2+ (Negative) H 05/19/22 15:00 Urine Blood Neg (Negative) 05/19/22 15:00 Urine Nitrate Negative (Negative) 05/19/22 15:00 Urine Bilirubin Neg (Negative) 05/19/22 15:00 Urine Urobilinogen Norm mg/dL (Negative) 05/19/22 15:00 Ur Leukocyte Esterase Negative (Negative) 05/19/22 15:00 Nasal Influ A H1 2008 PCR Detected (NOT DETECT) A 05/19/22 12:12 Serum Ketones Positive (Negative) H 05/19/22 11:50 Adenovirus (PCR) Not detected (NOT DETECT) 05/19/22 12:12 C. pneumoniae DNA (PCR) Not detected (NOT DETECT) 05/19/22 12:12 Coronavirus 229E (PCR) Not detected (NOT DETECT) 05/19/22 12:12 Human Metapneumovir PCR Not detected (NOT DETECT) 05/19/22 12:12 Influenza A (H1) PCR Not detected (NOT DETECT) 05/19/22 12:12 Influenza A (H3) PCR Not detected (NOT DETECT) 05/19/22 12:12 Influenza Type A (PCR) Detected (NOT DETECT) A 05/19/22 12:12 Influenza Type B (PCR) Not detected (NOT DETECT) 05/19/22 12:12 M. pneumoniae (PCR) Not detected (NOT DETECT) 05/19/22 12:12 Parainfluenza 1 (PCR) Not detected (NOT DETECT) 05/19/22 12:12 Parainfluenza 2 (PCR) Not detected (NOT DETECT) 05/19/22 12:12 Parainfluenza 3 (PCR) Not detected (NOT DETECT) 05/19/22 12:12 Parainfluenza 4 (PCR) Not detected (NOT DETECT) 05/19/22 12:12 RSV Type A (PCR) Not detected (NOT DETECT) 05/19/22 12:12 RSV Type B (PCR) Not detected (NOT DETECT) 05/19/22 12:12 Entero/Rhino (PCR) Not detected (NOT DETECT) 05/19/22 12:12 SARS-CoV-2 (PCR) Not detected (NOT DETECT) 05/19/22 12:12 Vitals Last Vital Signs Temp 98.8 F 05/22/22 11:47 Pulse 64 05/22/22 11:47 Resp 16 05/22/22 11:47 BP 125/76 05/22/22 11:47 Pulse Ox 98 05/22/22 11:47 O2 Del Method 05/22/22 11:47 Discharge Plan Discharge Patient Disposition: Home Condition: Stable Prescriptions: New pantoprazole 40 mg tablet,delayed release (DR/EC) 40 mg PO DAILY 42 Days Qty: 42 0RF cefdinir 300 mg capsule 300 mg PO BID 2 Days Qty: 4 0RF Continued glipizide 10 mg tablet 20 mg PO BID metformin 500 mg tablet extended release 24 hr 500 mg PO BID albuterol sulfate [ProAir HFA] 90 mcg/actuation HFA aerosol inhaler 2 puff inhalation QID ferrous sulfate 325 mg (65 mg iron) tablet 325 mg PO DAILY acarbose 50 mg tablet 50 mg PO TID insulin glargine 100 unit/mL solution 50 unit SUBCUT DAILY fluticasone propion-salmeterol 250-50 mcg/dose Blister With Device 1 inh INHALATION BID Fish Oil 500 mg Capsule 1,000 mg PO BID lisinopril 10 mg Tablet 5 mg PO DAILY Discontinued naproxen 500 mg tablet 500 mg PO BID Discharge Orders: Discharge Order (Routine); Ordered 05/22/22 Ordered By: Hermilo Stevens Referrals: Joon Santiago DO [Primary Care Provider] - 4-7 days Martin Randall MD [Physician] - 1 week (DKA) Discharge Diet: Diabetic Discharge Activity: Increase activity as tolerated Patient Instructions: Diabetes and Diet, How to Give an Insulin Injection (GEN) Activity Restrictions/Additional Instructions: Follow-up with your primary doctor for reassessment after DKA. Make sure to rotate insulin injection sites, if not rotating will form dense scar tissue and not absorbing insulin. Follow-up with your primary doctor for reassessment of anemia. Please discontinue naproxen, avoid any NSAIDs due to noted acute kidney injury on presentation, also in the setting of iron deficiency anemia. Discuss with your primary doctor regarding endoscopic evaluation if you have not had any including upper and lower endoscopy to further assess the source of iron defic iency anemia and exclude any malignancy. Continue follow-up with your primary doctor regarding chronic conditions including COPD. Discharge Attestations Time Spent in Discharge Care*: greater than 30 min Quality Metrics Clinical Quality Measures [ No reported AMI, CVA or VTE this stay] Coding Level of Care Code Acute Chg FW DC note Diagnoses Diabetic ketoacidosis associated with type 2 diabetes mellitus E11.10 LATASHA (acute kidney injury) N17.9 Altered mental status R41.82 Influenza A J10.1 Dehydration E86.0 Leukocytosis D72.829 Thrombocytosis D75.839 Anemia, macrocytic D53.9 Metabolic acidosis E87.20 COPD exacerbation J44.1
[2022-05-22] MEDS: insulin lispro 100 unit/1 mL SUBCUT (12:03)
== END 2022-05-22 13:57 | disposition home health service (06) | DRG 637 ==
LOC: ER 17:42 → ICU 18:05 → MEDSURG 05-21 17:05
PROVIDERS: Internal Medicine; Admitting Provider Internal Medicine; Emergency Provider Emergency Medicine; PCP Emergency Medicine Emergency Medical Services; Visit Provider Internal Medicine
DX: E11.10 Type 2 diabetes mellitus with ketoacidosis without coma (principal); G93.41 Metabolic encephalopathy; J10.00 Influenza due to other identified influenza virus with unspecified type of pneumonia; N17.9 Acute kidney failure, unspecified; J44.1 Chronic obstructive pulmonary disease with (acute) exacerbation; J44.0 Chronic obstructive pulmonary disease with (acute) lower respiratory infection; T38.3X6A Underdosing of insulin and oral hypoglycemic [antidiabetic] drugs, initial encounter; Z91.128 Patient's intentional underdosing of medication regimen for other reason; E86.0 Dehydration; D75.839 Thrombocytosis, unspecified; D53.9 Nutritional anemia, unspecified; Z79.84 Long term (current) use of oral hypoglycemic drugs; Z79.4 Long term (current) use of insulin; N40.0 Benign prostatic hyperplasia without lower urinary tract symptoms; I10 Essential (primary) hypertension; E78.2 Mixed hyperlipidemia; J32.4 Chronic pansinusitis; Z87.891 Personal history of nicotine dependence
CPT/HCPCS: 36415; 36416; 36600; 51702; 70450; 71045; 76705; 80048; 80053; 81003; 82009; 82550; 82803; 82962; 83605; 83735; 84100; 84443; 84484; 85025; 87040; 87486; 87581; 87633; 93005; 94640; 96365; 96367; 96372; 97110; 97116; 97161; 99285; C9113; J0610; J0696; J1644; J1815; J7030; J7050; J7626; J7799

== ENCOUNTER → 2022-07-30 15:18 | Outpatient (BNVA) | payer OTHER, SELFPAY | PROVIDERS: PCP Nurse Practitioner; Visit Provider Internal Medicine | DX: E11.65 Type 2 diabetes mellitus with hyperglycemia (principal); E11.69 Type 2 diabetes mellitus with other specified complication; E78.2 Mixed hyperlipidemia; Z79.84 Long term (current) use of oral hypoglycemic drugs; Z79.4 Long term (current) use of insulin | CPT/HCPCS: 36415; 80053; 80061; 83036; 99204; 99214 ==

== ENCOUNTER 2022-08-07 10:56 | Inpatient (IN) | payer OTHER, SELFPAY ==
[2022-08-07] VITALS (61 sets, daily range): BP systolic 79–169; BP diastolic 45–115; PULSE 52–178; RESP 15–29; TEMP 27.8–37.1; O2SAT 82–100; BMI 17.2
--- NOTE | 2022-08-07 10:59 | XR_ITS ---
WS: [id number] Exam: XR chest 1V portable [id number] Date/Time of Exam: 08/07/2022 11:15 AM Reason For Exam: dyspnea/cough Comparison 05/19/2022. Findings: The lungs are clear and fully expanded. Costophrenic angles are sharp. No infiltrates. Bronchovascula r relief appears normal. Cardiac silhouette is unremarkable. Bony elements are intact. XR/XR chest 1V portable [id number] IMPRESSION: Unremarkable chest radiograph.
--- NOTE | 2022-08-07 10:59 | CT_ITS ---
WS: [id number] CT HEAD TECHNIQUE: Noncontrast CT of the head obtained from the skullbase to the vertex. CLINICAL INFORMATION: AMS COMPARISON: None. DLP: 2502.[address] scans at [facility] use at least one of these dose optimization techniques: automated e xposure control; mA and/or kV adjustment per patient size (includes targeted exams where dose is matc hed to clinical indication); or iterative reconstruction. FINDINGS: No evidence of intracranial hemorrhage or mass effect. Ventricular system and basal cisterns are goldstein nt. Mild small vessel changes with moderate parenchymal volume loss. No extra-axial fluid collections . No evidence of mass or mass effect. RIGHT maxillary sinusitis with inspissated secretions. Small amount of fluid in the RIGHT frontal sin us and ethmoid air cells. Small amount of air in the cavernous sinuses likely related to recent IV ac cess. CT/CT head wo con* [id number] IMPRESSION: 1. No evidence of intracranial hemorrhage or mass effect. 2. Mild small vessel changes with moderate parenchymal volume loss. 3. RIGHT maxillary sinusitis with inspissated secretions. 4. No acute intracranial findings.
--- NOTE | 2022-08-07 11:00 | ECG_ITS ---
[facility] Test Date: 2022-08-07 Pat Name: Dearnati Navas Department: Room: Gender: Male Manager Latin: : 1955 Requested By: Reji Douglas Order Number: [id number] Veronica MD: Mahendra Alegria M.D. Measurements Intervals [place] Rate: 32 P: 0 MI: 0 QRS: 72 QRSD: 178 T: 30 QT: 561 QTc: 409 Interpretive Statements Heavy baseline artifact. Defective EKG. Need to repeat Electronically Signed On 08-07-2022 16:49:54 PLANT SUPERVISOR by Mahendra Alegria M.D. [id number]
[2022-08-07] MEDS: sodium chloride 0.9% 1,000 ML 999 ML IV ×3 (11:18→13:39)
[2022-08-07 11:34] LABS: Arterial Blood Gas Hematocrit 29.9 % (42-52); Base Excess ABG -29.3 mmol/L (-2.0-2.0); Blood Gas Allen Test Pos; Blood Gas Operator Identificat WALCI; Blood Gas Sample Site Radial, right; Blood Gas Sample Type Arterial; Carboxyhemoglobin 0.9 %THgb (0.4-20.1); Glucose Level-ABG > 1080.0 mg/dL (70-115); HCO3 ABG 2.7 mmol/L (22-26); HGB O2 Sat 97.1 % (95-100); Ionized Calcium Level - ABG 1.1 mmol/L (1.1-1.4); Potassium Level - ABG 6.7 mmol/L (3.5-5.0); Total Hemoglobin 9.8 g/dL (14-18)
[2022-08-07 11:35] LABS: ABG PCO2 15.3 mmHg (35-45); ABG PH Result 6.85 (7.35-7.45)
--- NOTE | 2022-08-07 11:35 | PC.PHAR ---
LEFT MESSAGE FOR [facility] TO GET [facility] LIST FA[facility]
--- NOTE | 2022-08-07 11:43 | PC.NURSE ---
Pt was placed on bear hugger about 15 min after arrival, core body temp low. IV started x2 with warm fluids infusing. Pt moving all extremities with no apparent purpose. Mouth dry. Pt skin color pink, difficult to obtain SpO2 due to cold body temp.
[2022-08-07 11:58] LABS: Hematocrit 37.8 % (42.0-52.0); Hemoglobin 10.2 g/dL (11.7-16.6); Mean Corpuscular Hemoglobin 28.5 pg (28.0-34.0); Mean Corpuscular Volume 105.6 fl (80-94); Mean Platelet Volume 11.8 fL (7.4-10.4); Platelet Count 413 10^3/cmm (130-400); Red Blood Count 3.58 10^6/uL (4.1-5.3); Red Cell Distribution Width 12.5 % (12.1-15.1); White Blood Count 26.2 10^3/uL (4.0-10.0)
[2022-08-07 12:22] LABS: Ketone (Acetest) Serum Positive (Negative)
[2022-08-07 12:23] LABS: Lactic Sepsis W/Reflex 3.9 mmol/L (0.5-2.2)
--- NOTE | 2022-08-07 12:28 | XR_ITS ---
WS: [id number] Exam: XR chest 1V portable [id number] Date/Time of Exam: 08/07/2022 12:28 PM Reason For Exam: Postcentral line placement Comparison with most recent exam performed earlier on this same day at 11:35 AM. A right subclavian central line has been placed and ends in the lower one third of the SVC. The lungs remain clear and fully expanded. Normal cardiomediastinal silhouette. Bony elements are intact. XR/XR chest 1V portable [id number] IMPRESSION: 1. Right subclavian central line in satisfactory position. No acute cardiopulmo nary finding.
--- NOTE | 2022-08-07 13:00 | ECG_ITS ---
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 Measurements Intervals Diamond Rate: 57 P: 0 PA: 0 QRS: 102 QRSD: 191 T: -56 QT: 537 QTc: 523 Interpretive Statements Possible supraventricular rhythm. Nonspecific IVCD. Heavy baseline artifact. Defective EKG Need to repeat Electronically Signed On 08-07-2022 16:53:36 CHEMICAL HANDLER by Mahendra Alegria M.D. [id number]
[2022-08-07 13:08] LABS: Slide Review Slide Review Perform
[2022-08-07 13:09] LABS: Absolute Segmented Neutrophil 19.4 10/cmm (1.6-7.1); Band Neutrophils Absolute 1.6 10^3/cmm (0.0-1.2); Eosinophils 0 %; Lymphocytes 15 %; Monocytes Absolute 0.3 10^3/cmm (0.1-0.6); Platelet Estimate Increased (Normal); Segmented Neutrophils 74 %; Total Cells Counted 100 (0-100)
--- NOTE | 2022-08-07 13:13 | W.ED.GENADLT ---
HPI - General Adult General: Chief complaint: Altered Mental Status Stated complaint: syncope Time Seen by Provider: 08/07/22 10:59 Source: family Mode of arrival: other (Private vehicle) History of Present Illness: 66-year-old male brought in with altered mental status. Family pulled up in a vehicle ER staff assisted patient was found naked in the front passenger seat. He would open his eyes to stimuli but not follow any commands disoriented. Initial core body temp of 82 ?F blood sugar reads high patient known diabetic on insulin and metformin. Poor compliance. Family states he seemed to be okay last night progressively worsened and was found down this morning although the family members that were present could not explain the environment or if he had been closed there unclosed overnight. Review of Systems General: Reports: ROS unobtainable due to mental status PFS ED PFSH: Medical History Benign prostatic hyperplasia COPD (chronic obstructive pulmonary disease) Degenerative arthritis Diabetes type 2, uncontrolled Essential (primary) hypertension Mixed hyperlipidemia due to type 2 diabetes mellitus Surgical History No pertinent past surgical history Family History Father Gout Mother No problems noted. Social History Smoking and tobacco status: former smoker Second hand smoke exposure: No Smoking risk assessment/counseling performed?: No Alcohol intake: current Alcohol intake frequency: holidays/special occasions only Alcohol type: beer Desire information about alcohol rehabilitation?: No Counseling given: No Desire information about substance/drug rehabilitation?: No Counseling given: No Adopted: No Caregiver/support person: No Lives independently: Yes Household members: none Housing: House Marital status: Single Highest education level completed: High School Graduate service: Yes Current occupational status: retired Physical Exam Const: NUTRITIONAL APPEARANCE: thin ORIENTATION/CONSCIOUSNESS: Yes oriented to time and Yes patient obtunded HENMT: COMMON NORMALS: normocephalic, atraumatic and hearing grossly normal bilaterally HEAD & SCALP: normocephalic and atraumatic Resp: EFFORT & INSPECTION: Yes abnormal respiratory pattern and Yes uses accessory muscles AUSCULTATION: wheezes Cardio: COMMON NORMALS: regular rhythm and No murmurs present (Cardio) RATE: bradycardic RHYTHM: regular rhythm GI: COMMON NORMALS: Soft to palpation and No hepatosplenomegaly present AUSCULTATION: Yes normoactive bowel sounds PALPATION: Yes Soft to palpation, No Tenderness to palpation present (GI), No Guarding due to palpation present (GI) and Yes No hepatosplenomegaly present Extremity: COMMON NORMALS: normal to inspection, capillary refill normal, no clubbing, cyanosis or edema, no calf tenderness and no pedal edema Neuro: SENSORIUM/ORIENTATION: Yes oriented to time Skin: COMMON NORMALS: no rashes or lesions noted GENERAL SKIN EXAM: no rashes or lesions noted Procedures Central Line Placement Right SC: Time Out Performed: Yes Patient Placed on Monitor/Pulse Ox: Yes MD Prep: mask, gown and gloves Central Line Prep: Chlorhexidine scrub Local Anesthetic: lidocaine 1% Amount of anesthesia used (mL): 3 Ultrasound Used for Placement: Yes Central Line Lumen Inserted: triple Post Procedure: sutured in place, good blood return, all ports aspirated, flushed, capped and sterile dressing applied Post Procedure X-Ray: tip of catheter in good position and no pneumothorax seen Patient Tolerated Procedure: well Complications: none Course Vital Signs: Vital signs: Vital Signs Temperature 97.9 F 08/09/22 19:00 Pulse Rate 85 08/10/22 10:00 Respiratory Rate 17 08/10/22 10:00 Blood Pressure 119/79 08/10/22 07:00 Pulse Oximetry 96 08/10/22 09:16 Oxygen Delivery Me thod 08/10/22 09:16 MDM - General Adult Medical Decision Making Patient already had enough fluids ordered that exceeded the 30 mL/kg sepsis fluid bolus so the formal order for 30 mL/kg was not used. Pt presents in DKA. LATASHA, pseudohyponatremia, elevated Trop likely secondary to her LATASHA and rhabdo. Medical Records I reviewed the patient's medical records. Lab Data I reviewed the patient's lab results. 08/07/22 11:07 08/07/22 12:[address] 08/07/22 10:59 IMPRESSION: 1. No evidence of intracranial hemorrhage or mass effect. 2. Mild small vessel changes with moderate parenchymal volume loss. 3. RIGHT maxillary sinusitis with inspissated secretions. 4. No acute intracranial findings. Chest X-Ray 08/07/22 12:28 IMPRESSION: 1. Right subclavian central line in satisfactory position. No acute cardiopulmonary finding. Laboratory Results WBC 26.2 10^3/uL (4.0-10.0) H 08/07/22 11:07 RBC 3.58 10^6/uL (4.1-5.3) L 08/07/22 11:07 Hgb 10.2 g/dL (11.7-16.6) L 08/07/22 11:07 Hct 37.8 % (42.0-52.0) L 08/07/22 11:07 MCV 105.6 fl (80-94) H 08/07/22 11:07 MCH 28.5 pg (28.0-34.0) 08/07/22 11:07 MCHC 27.0 g/dL (30.0-36.0) L 08/07/22 11:07 RDW 12.5 % (12.1-15.1) 08/07/22 11:07 Plt Count 413 10^3/cmm (130-400) H 08/07/22 11:07 MPV 11.8 fL (7.4-10.4) H 08/07/22 11:07 Lymph % (Auto) Not Reportable 08/07/22 11:07 [place] % (Auto) Not Reportable 08/07/22 11:07 Lymph # (Auto) Not Reportable 08/07/22 11:07 [place] # (Auto) Not Reportable 08/07/22 11:07 Total Counted 100 (0-100) 08/07/22 11:07 Atypical Lymphs % Not Reportable 08/07/22 11:07 Absolute Neutrophils 21.0 10^3/cmm (1.4-6.5) H 08/07/22 11:07 Segmented Neutrophils 74 % 08/07/22 11:07 Abs Segm Neuts (Man) 19.4 10/cmm (1.6-7.1) H 08/07/22 11:07 Band Neutrophils 6.0 % 08/07/22 11:07 Abs Band Neuts (Man) 1.6 10^3/cmm (0.0-1.2) H 08/07/22 11:07 Lymphocytes (Manual) 15 % 08/07/22 11:07 Monocytes (Manual) 1.0 % 08/07/22 11:07 Absolute Monocytes 0.3 10^3/cmm (0.1-0.6) 08/07/22 11:07 Eosinophils (Manual) 0 % 08/07/22 11:07 Absolute Eosinophils 0.0 10^3/cmm (0.0-0.7) 08/07/22 11:07 Basophils (Manual) 0.0 % 08/07/22 11:07 Absolute Basophils 0.0 10^3/cmm (0.0-0.2) 08/07/22 11:07 Metamyelocytes 4.0 % 08/07/22 11:07 Platelet Estimate Increased (Normal) 08/07/22 11:07 D-Dimer 0.66 ug/mIFEU (0-0.59) H 08/07/22 11:09 Specimen Type Arterial 08/07/22 11:23 Sample Site Radial, right 08/07/22 11:23 ABG pH 6.85 (7.35-7.45) L* 08/07/22 11:23 ABG pCO2 15.3 mmHg (35-45) L* 08/07/22 11:23 ABG pO2 182.0 mmHg (80.0-100.0) H 08/07/22 11:23 ABG HCO3 2.7 mmol/L (22-26) L 08/07/22 11:23 ABG O2 Saturation 99.0 08/07/22 11:23 ABG Base Excess -29.3 mmol/L (-2.0-2.0) L 08/07/22 11:23 Amadou Test Pos 08/07/22 11:23 A-a O2 Gradient Not Reportable 08/07/22 11:23 Hematocrit 29.9 % (42-52) L 08/07/22 11:23 Hgb O2 Saturation 97.1 % (95-100) 08/07/22 11:23 Carboxyhemoglobin 0.9 %THgb (0.4-20.1) 08/07/22 11:23 Methemoglobin 1.0 % (0.4-1.5) 08/07/22 11:23 Total Hemoglobin 9.8 g/dL (14-18) L 08/07/22 11:23 Sodium 115.0 mmol/L (131-143) L 08/07/22 11:23 Potassium 6.7 mmol/L (3.5-5.0) H 08/07/22 11:23 Glucose > 1080.0 mg/dL (70-115) H 08/07/22 11:23 Ionized Calcium 1.1 mmol/L (1.1-1.4) 08/07/22 11:23 O2 Delivery Device None 08/07/22 11:23 Audiovisual Equipment Operator ID [place] 08/07/22 11:23 Sodium 113 mmol/L (136-145) L* D 08/07/22 12:47 Potassium 7.1 mmol/L (3.5-5.1) H* 08/07/22 12:47 Chloride 74 mmol/L (98-107) L 08/07/22 12:47 Carbon Dioxide 5 mmol/L (22-29) L* 08/07/22 12:47 Anion Gap 41.1 (5-19) H 08/07/22 12:47 BUN 75 mg/dL (8-23) H 08/07/22 12:47 Creatinine 3.6 mg/dL (0.7-1.2) H 08/07/22 12:47 GFR Calculation 17.2 mL/min (90-130) L 08/07/22 12:47 Glucose 1420 mg/dL (65-115) H* 08/07/22 12:47 POC Glucose > 600 mg/dL (70-110) H* 08/07/22 10:58 Estimat Average Glucose 321 08/07/22 12:47 Hemoglobin A1c 12.8 % (4.0-6.0) H 08/07/22 12:47 Calculated Osmolality 332 mOsm/kg (285-295) H 08/07/22 12:47 Lactic Acid 3.9 mmol/L (0.5-2.2) H 08/07/22 11:25 Calcium 7.1 mg/dL (8.5-10.5) L 08/07/22 12:47 Magnesium 3.2 mg/dL (1.7-2.3) H 08/07/22 12:47 Total Bilirubin 0.2 mg/dL (0.15-1.2) 08/07/22 12:47 AST 49 U/L (0-40) H 08/07/22 12:47 ALT 28 U/L (0-41) 08/07/22 12:47 Alkaline Phosphatase 126 U/L (40-130) 08/07/22 12:47 Troponin T Baseline 165 ng/L (0-15) H* 08/07/22 12:47 Total Protein 5.5 g/dL (6.6-8.7) L 08/07/22 12:47 Albumin 3.4 g/dL (3.5-5.2) L 08/07/22 12:47 Globulin 2.1 g/dL (1.3-4.6) 08/07/22 12:47 Lipase 62 U/L (13-60) H 08/07/22 12:47 TSH 1.08 uIU/mL (0.27-4.20) 08/07/22 12:47 Urine Color Yellow (Yellow) 08/07/22 13:01 Urine Appearance Clear (CLEAR) 08/07/22 13:01 Urine pH 5 (5-7) 08/07/22 13:01 Ur Specific [place] 1.020 (1.005-1.030) 08/07/22 13:01 Urine Protein Trace (Negative) 08/07/22 13:01 Urine Glucose (UA) 4+ (Normal) H 08/07/22 13:01 Urine Ketones 2+ (Negative) H 08/07/22 13:01 Urine Blood Neg (Negative) 08/07/22 13:01 Urine Nitrate Negative (Negative) 08/07/22 13:01 Urine Bilirubin Neg (Negative) 08/07/22 13:01 Urine Urobilinogen Norm mg/dL (Negative) 08/07/22 13:01 Ur Leukocyte Esterase Negative (Negative) 08/07/22 13:01 Urine RBC Rare /hpf (0-2) 08/07/22 13:01 Urine WBC 0-4 /hpf (0-5) H 08/07/22 13:01 Ur Squamous Epith Cells 0-4 /hpf (0-5) H 08/07/22 13:01 Amorphous Sediment 1+ /hpf 08/07/22 13:01 Urine Bacteria Trace /hpf (NONE) 08/07/22 13:01 Hyaline Casts 0-4 /lpf H 08/07/22 13:01 Urine Mucus Trace /hpf 08/07/22 13:01 Salicylates 0.4 mg/dL (3-10) L 08/07/22 12:47 Acetaminophen < 5.0 ug/mL (10-30) L 08/07/22 12:47 Ethyl Alcohol < 10 mg/dL (0-10) 08/07/22 12:47 Serum Ketones Positive (Negative) H 08/07/22 11:09 Critical Care Time Critical Care Time: Critical Care Time: Yes Total Critical Care Time: 45 Attestation: The high probability of a clinically significant, sudden or life threatening deterioration of the patient's cardiovascular endocrine system(s) required my full and direct attention, intervention and personal management. The critical care time is as shown. This time is in addition to time spent performing any reported procedures but includes the following: [x] Data and vital sign review and interpretation [x] Patient assessment, examination and intervention [x] Documentation [x] Medication orders and management Discharge Plan Discharge Patient Disposition: Admitted As Inpatient Admit Provider: Kimberly Camejo Clinical Impression: Diabetic ketoacidosis associated with type 2 diabetes mellitus, LATASHA (acute kidney injury), COPD exacerbation, Hyperkalemia, Hyperphosphatemia, Hypothermia, Hyponatremia, Elevated troponin I level, Rhabdomyolysis Condition: Stable Coding Level of Care Code ED Hotel Front Desk Clerk for Chioma Grant
[2022-08-07 13:18] LABS: Reflex Lactate Order REFLEX LACTIC ORDERD
[2022-08-07 13:20] LABS: Alanine Aminotransferase 28 U/L (0-41); Albumin Level 3.4 g/dL (3.5-5.2); Alkaline Phosphatase 126 U/L (40-130); Anion Gap 41.1 (5-19); Aspartate Amino Transferase 49 U/L (0-40); Blood Urea Nitrogen 75 mg/dL (8-23); Calcium 7.1 mg/dL (8.5-10.5); Chloride 74 mmol/L (98-107); Globulin 2.1 g/dL (1.3-4.6); Glomerular Filtration Rate 17.2 mL/min (90-130); Lipase 62 U/L (13-60); Magnesium 3.2 mg/dL (1.7-2.3); Salicylate 0.4 mg/dL (3-10); Total Bilirubin 0.2 mg/dL (0.15-1.2); Total Protein 5.5 g/dL (6.6-8.7)
[2022-08-07 13:32] LABS: Carbon Dioxide 5 mmol/L (22-29); Potassium 7.1 mmol/L (3.5-5.1); Sodium 113 mmol/L (136-145)
[2022-08-07 13:33] LABS: Acetaminophen < 5.0 ug/mL (10-30); Alcohol Level < 10 mg/dL (0-10); Glucose 1420 mg/dL (65-115); Osmolality Calculated 332 mOsm/kg (285-295); Troponin(5th) Baseline 165 ng/L (0-15)
[2022-08-07 13:40] LABS: Urine Appearance Clear (CLEAR); Urine Color Yellow (Yellow); pH Urine 5 (5-7)
[2022-08-07] MEDS: insulin regular-human 100 units/1 mL 10 UNIT IVP (13:40)
[2022-08-07 13:41] LABS: Add Urine Microscopic? YES; Bilirubin Urine Neg (Negative); Blood Urine Neg (Negative); Glucose Urine UA 4+ (Normal); Ketones Urine 2+ (Negative); Leukocyte Esterase Urine Negative (Negative); Nitrate Urine Negative (Negative); Protein Urine Trace (Negative); Urobilinogen Urine Norm (Negative)
[2022-08-07 13:42] LABS: Bacteria Urine TRACE /hpf; Mucus Urine TRACE /hpf; RBC Urine RARE /hpf (0-2); Squamous Epithelial Cell Urine 0-4 /hpf (0-5); WBC Urine 0-4 /hpf (0-5)
[2022-08-07 13:43] LABS: Add Urine Culture? No; Amorphous Sediment Urine 1+ /hpf; Hyaline Casts Urine 0-4 /lpf
[2022-08-07] MEDS: piperacillin-tazobactam 3.375 GM in sodium chloride 0.9% (plus) 50 ML IV (15:00)
[2022-08-07] MEDS: vancomycin 1,000 MG in sodium chloride 0.9% 250 ML 250 MG IV (15:01)
[2022-08-07 15:05] LABS: Glucose Point of Care > 600 mg/dL (70-110)
[2022-08-07] MEDS: insulin regular-human 250 UNIT in sodium chloride 0.9% 250 ML 30 UNIT IV (15:19)
[2022-08-07 15:22] LABS: Troponin 5 2HR Delta 23.4 ABS# (0-10)
[2022-08-07 15:23] LABS: Anion Gap 41.8 (5-19); Blood Urea Nitrogen 75 mg/dL (8-23); Calcium 7.3 mg/dL (8.5-10.5); Chloride 80 mmol/L (98-107); Glomerular Filtration Rate 17.7 mL/min (90-130); Magnesium 3.1 mg/dL (1.7-2.3)
[2022-08-07 15:24] LABS: Lactic Acid level (Lactate) 1.8 mmol/L (0.5-2.2); Troponin 5 2HR 188.4 ng/L (0-15)
[2022-08-07 15:32] LABS: Osmolality Calculated 333 mOsm/kg (285-295)
[2022-08-07 15:36] LABS: Carbon Dioxide 4 mmol/L (22-29); Glucose 1224 mg/dL (65-115); Phosphorus 12.4 mg/dL (2.5-4.5); Potassium 6.8 mmol/L (3.5-5.1); Sodium 119 mmol/L (136-145)
[2022-08-07] MEDS: sodium bicarbonate 8.4% 1 mEq/mL 50mL Syr 100 MEQ IVP (15:39)
--- NOTE | 2022-08-07 15:43 | USCV_ITS ---
Aislinn Navas Age: 66 Gender: M : 1955 Exam Date: 08/07/2022 16:04 Ordering Phys: Kimberly Camejo MD Technologist: ASHLEY Exam Location: [facility] [place] Indication: nstemi BP: / HR: 81 Rhythm: Sinus Technical Quality: Adequate MEASUREMENTS (Male / Female) Normal Values 2D ECHO LV Diastolic Diameter PLAX 4.6 cm 4.2 - 5.9 / 3.9 - 5.3 cm LV Systolic Diameter PLAX 3.4 cm IVS Diastolic Thickness 0.8 cm 0.6 - 1.0 / 0.6 - 0.9 cm IVS Systolic Thickness 0.9 cm LVPW Diastolic Thickness 0.8 cm 0.6 - 1.0 / 0.6 - 0.9 cm LVPW Systolic Thickness 1.1 cm LVOT Diameter 2.1 cm LV Ejection Fraction 2D Teich 51.8 % LV Ejection Fraction MOD 2C 62.7 % LV Ejection Fraction 2C AL 63.1 % LA Diameter 2.6 cm M-MODE Aortic Annulus Diameter 2.9 cm LA Ao Ratio MM 0.8 MV E Point Septal Separation 0.3 cm DOPPLER AV Peak Velocity 101.0 cm/s LVOT Peak Velocity 94.0 cm/s AV Area Cont Eq vti 3.0 cm squared AV Area Cont Eq pk 3.3 cm squared MV Area PHT 3.7 cm squared Mitral E to A Ratio 1.5 MV E' Velocity 54.0 cm/s Mitral E to MV E' Ratio 8.7 Mitral E to LV E' Lateral Ratio 9.3 Mitral E to LV E' Septal Ratio 8.1 TR Peak Velocity 86.0 cm/s TR Peak Gradient 3.0 mmHg FINDINGS Left Ventricle Left ventricle is normal in size. LV systolic function is normal with EF of 55 to 60%. No regional wall motion abnormalities are seen. Diastolic function is normal Right Ventricle Normal in size and function Right Atrium Normal in size Left Atrium Normal in size Mitral Valve Structurally normal mitral valve. No significant stenosis or regurgitation. Aortic Valve Structurally normal aortic valve. No significant stenosis or regurgitation Tricuspid Valve Trace tricuspid regurgitation. Insufficient TR jet to calculate RVSP Pulmonic Valve Not well-visualized Pericardium Normal Aorta Normal in size IVC Appears to be normal CONCLUSIONS LV systolic function is normal with EF 55 to 60%. No significant valvular heart disease seen. Trace tricuspid regurgitation No comparison studies are available Faustino Cardenas MD (Electronically Signed) Final Date: 07 August 2022 19:53 S
--- NOTE | 2022-08-07 15:46 | P.HP_ITS ---
Providers/Chief Complaint Admitting Physician: Kimberly Camejo MD Primary Care Provider: NISHI Guthrie Chief Complaint: syncope History of Present Illness Dearl Sally Navas is a 66 year old male who has history of type 2 diabetes, hypertension, follows up with Dr. Randall, lives alone, drinks alcohol occasionally, came to the ER with family in his own car. As per the family he was found naked on the ground in his home. He mostly sleeps without clothes as per the family, he had severe episode of DKA last year as well in May. His blood sugar has been consistently high, this is not a suicidal attempt, patient was pretty confused when he arrived in the ER he was given insulin, fluids 3 L along bicarb, CT head unremarkable, patient is hypothermic temperature 86.9, severely acidotic, I started bicarb, delta troponin Troponin is significant requested heparin drip, EKG showing sinus rhythm with first-degree AV block no QTc prolongation, patient is requiring wrist restraints very agitated able to follow commands speech is slightly slurred because of excessive dryness he is asking for water, most of the history has been taken from his sister who lives in [facility]. Review of Systems General: Reports: ROS unobtainable due to medical condition (Delirium due to diabetic ketoacidosis) Medications/Allergies Home Medications Medication Instructions Recorded Confirmed Last Taken Type albuterol sulfate 90 mcg/actuation 2 puff inhalation QID 09/09/21 07/30/22 Unknown History aerosol inhaler (ProAir HFA) glipizide 10 mg tablet 20 mg PO BID 09/09/21 07/30/22 Unknown History metformin 500 mg tablet,extended 500 mg PO BID 09/09/21 07/30/22 Unknown History release 24 hr acarbose 50 mg tablet 50 mg PO TID 03/31/22 07/30/22 Unknown History ferrous sulfate 325 mg (65 mg 325 mg PO DAILY 03/31/22 07/30/22 Unknown History iron) tablet insulin glargine 100 unit/mL 50 unit SUBCUT DAILY 03/31/22 07/30/22 Unknown History subcutaneous solution fluticasone 250 mcg-salmeterol 50 1 inh inhalation BID 05/19/22 07/30/22 Unknown History mcg/dose blistr powdr for inhalation lisinopril 10 mg tablet 5 mg PO DAILY 05/19/22 07/30/22 Unknown History omega-3 fatty acids 500 mg capsule 1,000 mg PO BID 05/19/22 07/30/22 Unknown History Allergies Allergy/AdvReac Type Severity Reaction Status Date / Time No Known Allergies Allergy Verified 07/30/22 14:44 PFSH Acute PFSH: Medical History Benign prostatic hyperplasia COPD (chronic obstructive pulmonary disease) Degenerative arthritis Diabetes type 2, uncontrolled Essential (primary) hypertension Mixed hyperlipidemia due to type 2 diabetes mellitus Surgical History No pertinent past surgical history Family History Father Gout Mother No problems noted. Social History Smoking and tobacco status: former smoker Second hand smoke exposure: No Smoking risk assessment/counseling performed?: No Alcohol intake: current Alcohol intake frequency: holidays/special occasions only Alcohol type: beer Desire information about alcohol rehabilitation?: No Counseling given: No Desire information about substance/drug rehabilitation?: No Counseling given: No Adopted: No Caregiver/support person: No Lives independently: Yes Household members: none Housing: House Marital status: Single Highest education level completed: High School Graduate service: Yes Current occupational status: retired Vitals/I&O/Wt Last Vital Signs Temp 86.9 F L 08/07/22 14:19 Pulse 70 08/07/22 14:18 Resp 22 H 08/07/22 14:10 BP 93/65 08/07/22 14:18 Pulse Ox 94 08/07/22 11:11 O2 Del Method 08/07/22 14:38 08/07/22 08/07/22 08/07/22 06:59 14:59 22:59 Intake Total 149.85 / 149.85 Balance 149.85 / 149.85 Weight last 48 hrs Weight 54.431 kg Physical Exam Narrative: Clinically patient looks very dry Able to follow commands No signs of stroke however speech is slurred because of cystic dryness He is asking for a cup of water Currently on Levophed at 6 mics Hypothermic with Yousif hugger's Abdomen soft Lower extremity no edema Skin without any injuries S1, S2 sinus rhythm Abdomen soft Currently on room air EOMI, PERRLA Wrist restraints Agitated Disheveled unkept appearance Urinary Catheter Management: Franco: Cath Placed During This Visit: yes Urinary Catheter Date of Insertion: 08/07/22 Urinary Catheter Time of Insertion: 13:04 Data 08/07/22 11:07 08/07/22 14:52 Micro: Microbiology 08/07/22 11:25 Blood Culture - Preliminary Blood SPECIMEN COLLECTED 08/07/22 11:22 Blood Culture - Preliminary Blood SPECIMEN COLLECTED A&P Assessment and plan (1) Diabetic ketoacidosis associated with type 2 diabetes mellitus: (2) DKA (diabetic ketoacidosis): (3) Metabolic acidosis: (4) ATN (acute tubular necrosis): (5) Hyperkalemia: (6) Hyperphosphatemia: (7) NSTEMI (non-ST elevated myocardial infarction): (8) Hypothermia: (9) Leukemoid reaction: (10) Diabetes type 2, uncontrolled: (11) LATASHA (acute kidney injury): (12) Anemia, macrocytic: (13) Anemia: (14) Septic shock: Plan Severe DKA with encephalopathy Severe metabolic acidosis Noncompliant Check drug screen Metabolic encephalopathy related to hyperglycemia Pseudohyponatremia related to high blood sugars Hyperkalemia Acute renal failure Oliguric ATN Hypothermia Leukemoid stress reaction Plan Insulin drip Start bicarb Start heparin drip for ACS for delta troponin requested echo serial EKGs first EKG did not show QTc prolongation sinus rhythm first-degree AV block, QTc 4 4 4 ms No active chest pain BMP every 4 hours Hyperkalemia: Improving We will give calcium gluconate tall T waves noted on EKG, A dose of bicarb IV push has been given as well Family updated Previous records reviewed when he was admitted for DKA, it took 3 days for him t o recover, follows up with Dr. Randall Septic shock/component of hypovolemia sepsis criteria met with hypothermia, leukocytosis, lactic acid, endorgan damage 3 L fluid given in the ER, currently on Levophed Blood cultures taken Repeat lactic acid Start broad-spectrum antibiotics Full code N.p.o. Attestations Medical Necessity Statement*: More than 2 midnights anticipated and High Time for a total of 60 minutes, includes reviewing past or interval history, examining/interviewing patient, placing orders, counseling patient/family/other support, updating patient/family/other support, discussing plan of care with staff, documenting encounter and coordinating care Diagnoses Diabetic ketoacidosis associated with type 2 diabetes mellitus E11.10 DKA (diabetic ketoacidosis) E11.10 Metabolic acidosis E87.20 ATN (acute tubular necrosis) N17.0 Hyperkalemia E87.5 Hyperphosphatemia E83.39 NSTEMI (non-ST elevated myocardial infarction) I21.4 Hypothermia T68.XXXA Leukemoid reaction D72.823 Diabetes type 2, uncontrolled E11.65 LATASHA (acute kidney injury) N17.9 Anemia, macrocytic D53.9 Anemia D64.9 Septic shock A41.9; R65.21
--- NOTE | 2022-08-07 15:48 | ECG_ITS ---
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 Measurements Intervals [place] Rate: 84 P: 80 IN: 215 QRS: 74 QRSD: 104 T: 73 QT: 404 QTc: 478 Interpretive Statements SINUS RHYTHM WITH FIRST DEGREE AV BLOCK Compared to ECG 08/07/2022 13:06:42 First degree AV block now present Atrial fibrillation no longer present Aberrant conduction of supraventricular beat(s) no longer present Ventricular premature complex(es) no longer present Right-axis deviation no longer present Intraventricular conduction delay no longer present Myocardial infarct finding no longer present Electronically Signed On 08-07-2022 16:51:49 CNC MILL OPERATOR by Mahendra Alegria M.D. [id number]
[2022-08-07 16:04] LABS: D Dimer 0.66 ug/mIFEU (0-0.59)
[2022-08-07 16:15] LABS: Glucose Point of Care > 600 mg/dL (70-110)
[2022-08-07] MEDS: famotidine 20 mg/2 mL INJ IVP (16:18)
[2022-08-07 16:25] LABS: Procalcitonin 2.92 ng/mL (0-0.5)
[2022-08-07] MEDS: heparin drip 25,000 UNIT/500 ML PREMIX 16 UNIT IV (16:43)
[2022-08-07 16:53] LABS: Estmated Average Glucose 321; Hemoglobin A1C 12.8 % (4.0-6.0)
[2022-08-07 16:54] LABS: Creatine Phosphokinase 3211 U/L (39-308)
[2022-08-07 17:32] LABS: Glucose Point of Care > 600 mg/dL (70-110)
[2022-08-07 17:35] LABS: Alcohol Level < 10 mg/dL (0-10)
[2022-08-07] MEDS: sodium bicarbonate 50 MEQ in sodium chloride 0.45% 1,000 ML 125 MEQ IV (17:38)
[2022-08-07] MEDS: cefepime 1,000 MG in sodium chloride 0.9% (plus) 50 ML 100 MG IV (17:39)
--- NOTE | 2022-08-07 18:12 | PC.NURSE ---
Admit Note Patient admitted to ICU from ED via stretcher. Patient presents with rectal temperature of 88 degrees F, A&Ox1(self), many critical lab values, and abnormal vital signs, see documented. Orders to start insulin drip, heparin drip, levophed drip, administer 2amps of sodium bicarb, IVP of pepcid. ABX stated: vancomycin, zoysn, cefepime. IVF started at this time- sodium bicarb in 0.45% NS at a rate of 125ml/hr. Rectal thermometer and joaquin hugger placed & will continue to monitor. Patient began pulling off clothes, IVs and all monitoring devices. This nurse notified Dr. Camejo, orders to place patient in soft restraints. When beginning the administration of the heparin drip, verbal order per Dr. Camejo to not give initial bolus of heparin. The nurse begin to administer insulin drip per protocol, the glucometer was unable to give blood glucose result due to blood glucose reading too high . This nurse again notified Dr. Payne, orders to get a serum glucose Q4HR and to continue Q1HR to get blood glucose with the glucometer. Patient arrived to ICU with quintero catheter and right IJ central line already in place. Patient's mother and sister was noted to be at bedside on arrival to ICU. Patient and family members oriented to environment, equipment, and informed of the following as found in the admission booklet: patient rights & responsibilities, visitor policy, hand and respiratory hygiene practice. Other education includes: management of lab values, restraint management, medications administered, and the plan of care. Patient education needs to be reinforced as patient becomes more oriented. .
--- NOTE | 2022-08-07 18:43 | ECG_ITS ---
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 Measurements Intervals [place] Rate: 86 P: 75 OR: 197 QRS: 73 QRSD: 108 T: 34 QT: 400 QTc: 479 Interpretive Statements SINUS RHYTHM NONSPECIFIC T-WAVE ABNORMALITY Compared to ECG 08/07/2022 16:34:56 T-wave abnormality now present First degree AV block no longer present Electronically Signed On 08-08-2022 12:26:06 APARTMENT PROPERTY MANAGER by Faustino Cardenas M.D. [id number]
[2022-08-07 18:53] LABS: Glucose Point of Care > 600 mg/dL (70-110)
[2022-08-07 19:45] LABS: Lactate (Lactic Acid level) 2.8 mmol/L (0.5-2.2)
[2022-08-07 19:53] LABS: Glucose Point of Care > 600 mg/dL (70-110)
[2022-08-07 20:00] LABS: Troponin 5 6HR 212.3 ng/L (0-15); Troponin 5 6HR Delta 47.3 ng/L (0-12)
[2022-08-07 20:01] LABS: Anion Gap 39.1 (5-19); Calcium 7.2 mg/dL (8.5-10.5); Chloride 87 mmol/L (98-107); Glomerular Filtration Rate 18.3 mL/min (90-130); Potassium 4.1 mmol/L (3.5-5.1); Sodium 128 mmol/L (136-145)
[2022-08-07 20:05] LABS: Osmolality Calculated 334 mOsm/kg (285-295)
[2022-08-07 20:08] LABS: Blood Urea Nitrogen 81 mg/dL (8-23); Carbon Dioxide 6 mmol/L (22-29); Glucose 878 mg/dL (65-115)
[2022-08-07 22:08] LABS: Glucose Point of Care 500 mg/dL (70-110)
[2022-08-07 23:31] LABS: Glucose Point of Care 536 mg/dL (70-110)
[2022-08-08] VITALS (98 sets, daily range): BP systolic 83–120; BP diastolic 47–72; PULSE 84–102; RESP 11–30; TEMP 36.7–37.6; O2SAT 91–100; BMI 17.6
[2022-08-08] MEDS: piperacillin-tazobactam 3.375 GM in sodium chloride 0.9% (plus) 50 ML IV ×2 (00:07→12:18)
[2022-08-08 00:26] LABS: Glucose Point of Care 465 mg/dL (70-110)
[2022-08-08] MEDS: insulin regular-human 250 UNIT in sodium chloride 0.9% 250 ML 28.63 UNIT IV (00:29)
[2022-08-08 00:41] LABS: Anion Gap 24.4 (5-19); Calcium 7.2 mg/dL (8.5-10.5); Carbon Dioxide 16 mmol/L (22-29); Chloride 96 mmol/L (98-107); Glomerular Filtration Rate 16.6 mL/min (90-130); Glucose 408 mg/dL (65-115); Osmolality Calculated 318 mOsm/kg (285-295); Potassium 3.4 mmol/L (3.5-5.1); Sodium 133 mmol/L (136-145)
[2022-08-08 00:51] LABS: Blood Urea Nitrogen 81 mg/dL (8-23)
[2022-08-08 01:12] LABS: Glucose Point of Care 399 mg/dL (70-110)
[2022-08-08 01:31] LABS: Thyroid Stimulating Hormone 1.08 uIU/mL (0.27-4.20)
[2022-08-08 02:10] LABS: Glucose Point of Care 401 mg/dL (70-110)
[2022-08-08] MEDS: sodium bicarbonate 50 MEQ in sodium chloride 0.45% 1,000 ML 125 MEQ IV (02:27)
[2022-08-08 03:11] LABS: Glucose Point of Care 308 mg/dL (70-110)
[2022-08-08 03:13] LABS: Amphetamines Screen Urine Negative (Negative); Barbiturates Screen Urine Negative (Negative); Benzodiazepines Screen Urine Negative (Negative); Cocaine Screen Urine Negative (Negative); Opiate Screen Urine Negative (Negative); PCP Screen Urine Negative (Negative); THC Screen Urine Negative (Negative)
[2022-08-08] MEDS: famotidine 20 mg/2 mL INJ IVP ×2 (03:16→17:08)
[2022-08-08 04:10] LABS: Glucose Point of Care 259 mg/dL (70-110)
[2022-08-08 04:56] LABS: Partial Thromboplastin Time 83.3 SECONDS (23.9-36.7)
[2022-08-08 05:04] LABS: Alanine Aminotransferase 49 U/L (0-41); Albumin Level 3.1 g/dL (3.5-5.2); Alkaline Phosphatase 96 U/L (40-130); Anion Gap 21.4 (5-19); Aspartate Amino Transferase 112 U/L (0-40); Calcium 7.1 mg/dL (8.5-10.5); Carbon Dioxide 18 mmol/L (22-29); Chloride 98 mmol/L (98-107); Glomerular Filtration Rate 17.2 mL/min (90-130); Glucose 229 mg/dL (65-115); Osmolality Calculated 310 mOsm/kg (285-295); Potassium 3.4 mmol/L (3.5-5.1); Sodium 134 mmol/L (136-145); Total Bilirubin 0.3 mg/dL (0.15-1.2); Total Protein 5.1 g/dL (6.6-8.7)
[2022-08-08 05:12] LABS: Blood Urea Nitrogen 83 mg/dL (8-23)
[2022-08-08 05:19] LABS: Glucose Point of Care 193 mg/dL (70-110)
[2022-08-08] MEDS: dextrose 5%-ns + KCl 40 40 MEQ/1,000 ML BAG 125 MEQ IV ×2 (05:38→15:15)
[2022-08-08 06:07] LABS: Glucose Point of Care 191 mg/dL (70-110)
[2022-08-08 07:11] LABS: Magnesium 2.1 mg/dL (1.7-2.3); Phosphorus 4.1 mg/dL (2.5-4.5)
[2022-08-08 07:31] LABS: Glucose Point of Care 117 mg/dL (70-110)
[2022-08-08 07:45] LABS: Glucose Point of Care > 600 mg/dL (70-110)
[2022-08-08 08:19] LABS: Glucose Point of Care 137 mg/dL (70-110)
[2022-08-08 09:03] LABS: Glucose Point of Care 104 mg/dL (70-110)
[2022-08-08 10:16] LABS: Glucose Point of Care 88 mg/dL (70-110)
[2022-08-08 10:40] LABS: Partial Thromboplastin Time 77.3 SECONDS (23.9-36.7)
[2022-08-08 11:19] LABS: Glucose Point of Care 123 mg/dL (70-110)
[2022-08-08 11:56] LABS: Anion Gap 20.8 (5-19); Calcium 7.1 mg/dL (8.5-10.5); Carbon Dioxide 18 mmol/L (22-29); Chloride 100 mmol/L (98-107); Glomerular Filtration Rate 14.8 mL/min (90-130); Glucose 92 mg/dL (65-115); Osmolality Calculated 305 mOsm/kg (285-295); Potassium 3.8 mmol/L (3.5-5.1); Sodium 135 mmol/L (136-145)
[2022-08-08 12:03] LABS: Blood Urea Nitrogen 83 mg/dL (8-23)
[2022-08-08] MEDS: FUROsemide 10 mg/mL SDV 2mL 20 MG IVP (12:22)
--- NOTE | 2022-08-08 12:22 | PM.PN ---
Subjective Subjective: Patient is much more calm and alert Stating that he probably forgot to take his insulin at home A gap around 20 Creatinine worsening Requested urine studies, discontinue IV antibiotics and only continue cefepime, discontinue vancomycin Afebrile Still requiring Levophed low-dose at 4 mics Bicarb drip turned off Repeat BMP around 3 PM Nonoliguric ATN Urine output around 850 mL today I will give him Lasix challenge to see fever make more urine Potassium 3.8 Globin A1c 12.8 Repeat CPK Troponins with significant delta Echo showing EF 50 to 60% no wall motion abnormality Vitals/I&O/Wt Last Vital Signs Temp 98.0 F 08/08/22 09:45 Pulse 85 08/08/22 11:15 Resp 14 08/08/22 11:15 BP 92/55 08/08/22 11:15 Pulse Ox 100 08/08/22 11:00 O2 Del Method 08/08/22 09:45 08/07/22 08/08/22 08/08/22 22:59 06:59 14:59 Intake Total 980.54 / 3130.39 1937.422 / 5067.812 249.6 / 249.6 Output Total 450 / 450 250 / 700 150 / 150 Balance 530.54 / 2680.39 1687.422 / 4367.812 99.6 / 99.6 Weight last 48 hrs Weight 55.837 kg Weight 54.431 kg Physical Exam Narrative: Patient is awake and alert Able to answer questions Dehydrated Abdomen soft Currently on Levophed and multiple fluids D5 normal saline along insulin S1, S2 No active chest pain abdominal pain Abdomen soft Legs without no edema Franco cath draining concentrated urine Urinary Catheter Management: Franco: Cath Placed During This Visit: yes Reason for Continuing Indwelling Catheter: Accurate Measurement of Urinary Output in Critically Ill Patients Urinary Catheter Date of Insertion: 08/07/22 Urinary Catheter Time of Insertion: 13:04 Data 08/07/22 11:07 08/08/22 10:11 Micro: Microbiology 08/07/22 11:25 Blood Culture - Preliminary Blood NEGATIVE TO DATE 08/07/22 11:22 Blood Culture - Preliminary Blood NEGATIVE TO DATE A&P Assessment and plan (1) Septic shock: (2) Leukemoid reaction: (3) Hypothermia: (4) NSTEMI (non-ST elevated myocardial infarction): (5) Hyperphosphatemia: (6) Hyperkalemia: (7) ATN (acute tubular necrosis): (8) Metabolic acidosis: (9) DKA (diabetic ketoacidosis): (10) LATASHA (acute kidney injury): (11) Diabetes type 2, uncontrolled: (12) Anemia: Plan Septic shock: Patient is being weaned off Levophed Because of worsening of creatinine function I will only keep him on cefepime, please note no active source of infection identified Cultures negative to date Afebrile Clinically very dehydrated it could be a mixed presentation of sepsis and hypovolemia Metabolic encephalopathy related to hypoglycemia: Resolved ATN, nonoliguric, likely etiology sepsis, hypotension, Not acidotic Potassium 3.8 BUN/creatinine worsening Atrial 50 of output with fluid challenge We will give him Lasix challenge today Requested urine studies In case of further worsening will consult nephrology tomorrow Hyperkalemia: NSTEMI: Likely type II AK due to abnormal kidney function, echo did not show any wall motion abnormality chest Continue heparin drip Uncontrolled type 2 diabetes we will start Lantus 50 units at home he takes 40 units, will give him Lantus and start sliding scale once anion gap closes today Repeat BMP at 3:00 Muscle injury, repeat CPK today Metabolic acidosis: Improved, bicarb drip turned off Need to monitor him in ICU Start his diet once anion gap closes He can have clear liquids for the Full code DVT prophylaxis on board Attestations Medical Necessity Statement*: Continue ICU management Coding Level of Care Code 74052 Diagnoses Septic shock A41.9; R65.21 Leukemoid reaction D72.823 Hypothermia T68.XXXA NSTEMI (non-ST elevated myocardial infarction) I21.4 Hyperphosphatemia E83.39 Hyperkalemia E87.5 ATN (acute tubular necrosis) N17.0 Metabolic acidosis E87.20 DKA (diabetic ketoacidosis) E11.10 LATASHA (acute kidney injury) N17.9 Diabetes type 2, uncontrolled E11.65 Anemia D64.9
[2022-08-08 13:06] LABS: Glucose Point of Care 119 mg/dL (70-110)
[2022-08-08 13:33] LABS: Glucose Point of Care 127 mg/dL (70-110)
[2022-08-08 13:33] LABS: Glucose Point of Care 274 mg/dL (70-110)
[2022-08-08 14:08] LABS: Creatine Phosphokinase 5394 U/L (39-308)
[2022-08-08 14:15] LABS: Glucose Point of Care 94 mg/dL (70-110)
[2022-08-08 14:48] LABS: Potassium, Radom Urine 11 mmol/L; Urine Random Chloride 99 mmol/L; Urine Random Sodium 104 mmol/L
[2022-08-08 15:17] LABS: Glucose Point of Care 97 mg/dL (70-110)
[2022-08-08 15:30] LABS: Creatinine Urine, Random 12 mg/dL (39-259); Microalbumin Random Urine 2 ug/dL (0-20)
[2022-08-08 15:32] LABS: Microalbum Creatinine Ratio Ur 167 mg/dL (0-20)
[2022-08-08 15:48] LABS: Eosinophil Urine No Eosinophils Seen; Urine Eosinophil Count 0 (0-0)
[2022-08-08 15:57] LABS: Anion Gap 23.3 (5-19); Calcium 7.2 mg/dL (8.5-10.5); Carbon Dioxide 17 mmol/L (22-29); Chloride 100 mmol/L (98-107); Glomerular Filtration Rate 15.2 mL/min (90-130); Glucose 111 mg/dL (65-115); Osmolality Calculated 307 mOsm/kg (285-295); Potassium 4.3 mmol/L (3.5-5.1); Sodium 136 mmol/L (136-145)
[2022-08-08 16:18] LABS: Blood Urea Nitrogen 81 mg/dL (8-23)
[2022-08-08 16:19] LABS: Glucose Point of Care 82 mg/dL (70-110)
[2022-08-08 16:54] LABS: Anion Gap 21.4 (5-19); Calcium 7.5 mg/dL (8.5-10.5); Carbon Dioxide 18 mmol/L (22-29); Chloride 103 mmol/L (98-107); Glomerular Filtration Rate 16.1 mL/min (90-130); Glucose 146 mg/dL (65-115); Osmolality Calculated 314 mOsm/kg (285-295); Potassium 4.4 mmol/L (3.5-5.1); Sodium 138 mmol/L (136-145)
[2022-08-08 17:02] LABS: Blood Urea Nitrogen 85 mg/dL (8-23)
[2022-08-08] MEDS: cefepime 1,000 MG in sodium chloride 0.9% (plus) 50 ML 100 MG IV (17:09)
[2022-08-08 17:20] LABS: Glucose Point of Care 117 mg/dL (70-110)
[2022-08-08 18:12] LABS: Glucose Point of Care 189 mg/dL (70-110)
[2022-08-08 18:12] LABS: Glucose Point of Care 245 mg/dL (70-110)
--- NOTE | 2022-08-08 18:57 | PC.NURSE ---
Patient continues to have a high anion gap. NUrse alerted Dr monroy. Received orders to increased D5NS to 175 to allow for continued insulin drip administration. Hold lantus and sliding scale injecitons until Gap is closed. Will reassess at 2100 with a timed BMP.
--- NOTE | 2022-08-08 18:58 | PC.NURSE ---
SHift SUmmary: Uneventful shift. Patient rested in bed througout the day. Mental status has improved. He is now alert to person, place, time, and situation, though very lethargic. Restraints removed as they are no longer necessary, patient is not attmepting to pull out iv lines. Patient had 1 loose bowel movement today and 2050 mL of urine output.
[2022-08-08 19:37] LABS: Glucose Point of Care 179 mg/dL (70-110)
[2022-08-08 20:07] LABS: Glucose Point of Care 244 mg/dL (70-110)
[2022-08-08 21:53] LABS: Anion Gap 21.4 (5-19); Calcium 7.5 mg/dL (8.5-10.5); Carbon Dioxide 17 mmol/L (22-29); Chloride 104 mmol/L (98-107); Glomerular Filtration Rate 15.6 mL/min (90-130); Glucose 294 mg/dL (65-115); Osmolality Calculated 322 mOsm/kg (285-295); Potassium 4.4 mmol/L (3.5-5.1); Sodium 138 mmol/L (136-145)
[2022-08-08 22:17] LABS: Blood Urea Nitrogen 84 mg/dL (8-23)
[2022-08-08 23:11] LABS: Glucose Point of Care 284 mg/dL (70-110)
[2022-08-08] MEDS: dextrose 5%-ns + KCl 20 20 MEQ/1,000 ML BAG 125 MEQ IV (23:53)
[2022-08-09] VITALS (66 sets, daily range): BP systolic 87–134; BP diastolic 52–85; PULSE 87–109; RESP 7–27; TEMP 36.6; O2SAT 76–100; BMI 17.6
[2022-08-09 00:10] LABS: Glucose Point of Care 282 mg/dL (70-110)
[2022-08-09] MEDS: insulin regular-human 250 UNIT in sodium chloride 0.9% 250 ML 15.66 UNIT IV (00:12)
[2022-08-09 01:10] LABS: Glucose Point of Care 273 mg/dL (70-110)
[2022-08-09 02:07] LABS: Glucose Point of Care 206 mg/dL (70-110)
[2022-08-09 03:09] LABS: Glucose Point of Care 170 mg/dL (70-110)
[2022-08-09 04:11] LABS: Glucose Point of Care 122 mg/dL (70-110)
[2022-08-09 05:03] LABS: Basophils % 0.1 %; Hematocrit 27.5 % (42.0-52.0); Hemoglobin 9.5 g/dL (11.7-16.6); Lymphocytes # 0.5 10^3/uL (0.8-4.8); Lymphocytes % 2.8 %; Mean Corpuscular HGB Conc 34.5 g/dL (30.0-36.0); Mean Corpuscular Hemoglobin 28.5 pg (28.0-34.0); Mean Corpuscular Volume 82.6 fl (80-94); Mean Platelet Volume 11.3 fL (7.4-10.4); Monocytes # 0.8 10^3/uL (0.2-0.9); Monocytes % 4.2 %; Neutrophils # 16.28 10^3/uL (1.8-7.7); Neutrophils % 91.8 %; Nucleated Red Blood Cells % 0 %; Platelet Count 183 10^3/cmm (130-400); Red Blood Count 3.33 10^6/uL (4.1-5.3); Red Cell Distribution Width 12.7 % (12.1-15.1); White Blood Count 17.7 10^3/uL (4.0-10.0)
[2022-08-09 05:10] LABS: Glucose Point of Care 75 mg/dL (70-110)
[2022-08-09 05:28] LABS: Blood Urea Nitrogen 78 mg/dL (8-23); Calcium 7.5 mg/dL (8.5-10.5); Carbon Dioxide 19 mmol/L (22-29); Chloride 107 mmol/L (98-107); Glomerular Filtration Rate 15.2 mL/min (90-130); Glucose 165 mg/dL (65-115); Osmolality Calculated 319 mOsm/kg (285-295); Sodium 141 mmol/L (136-145)
[2022-08-09 06:08] LABS: Glucose Point of Care 74 mg/dL (70-110)
[2022-08-09] MEDS: famotidine 20 mg/2 mL INJ IVP ×2 (06:23→15:49)
[2022-08-09 08:11] LABS: Glucose Point of Care 171 mg/dL (70-110)
[2022-08-09] MEDS: dextrose 5%-ns + KCl 20 20 MEQ/1,000 ML BAG 125 MEQ IV (08:17)
[2022-08-09 09:18] LABS: Glucose Point of Care 195 mg/dL (70-110)
[2022-08-09 10:30] LABS: Glucose Point of Care 174 mg/dL (70-110)
[2022-08-09] MEDS: insulin glargine 100 units/1 mL 50 UNIT SUBCUT ×2 (10:39→21:26)
[2022-08-09 11:58] LABS: Creatine Phosphokinase 2377 U/L (39-308)
[2022-08-09 12:14] LABS: Glucose Point of Care 138 mg/dL (70-110)
[2022-08-09] MEDS: sodium chloride 0.9% 1,000 ML 150 ML IV (12:29)
--- NOTE | 2022-08-09 13:26 | PM.PN ---
Subjective Subjective: This morning gap has closed Ambulate patient ate Informed ICU nurse We will bridge him with subcutaneous insulin 50 units Start normal saline after we discontinue insulin drip and D5 after 1 hour of bridging therapy Patient is doing much more better awake and alert and cooperative Not agitated at all BP improving Creatinine worsened and peaked at 4, urine output more than 4 L Vitals/I&O/Wt Last Vital Signs Temp 97.8 F 08/09/22 10:30 Pulse 89 08/09/22 12:00 Resp 14 08/09/22 12:00 BP 116/78 08/09/22 12:00 Pulse Ox 93 08/09/22 12:00 O2 Del Method 08/09/22 09:18 08/08/22 08/09/22 08/09/22 22:59 06:59 14:59 Intake Total 781.298 / 2329.730 692.31 / 3022.040 187 / 1876 Output Total 3050 / 3350 1300 / 4650 Balance -2268.702 / -1020.270 -607.69 / -9360.500 2557 / 1876 Weight last 48 hrs Weight 55.837 kg Weight 55.837 kg Physical Exam Narrative: Patient looks euvolemic Adequate urine output Hemodynamically stable Awake and alert Nonfocal neuro exam Abdomen soft No audible stridor or wheezing Currently on room air Pleasant and cooperative Urinary Catheter Management: Franco: Cath Placed During This Visit: yes Reason for Continuing Indwelling Catheter: Accurate Measurement of Urinary Output in Critically Ill Patients Urinary Catheter Date of Insertion: 08/07/22 Urinary Catheter Time of Insertion: 13:04 Data 08/09/22 03:10 08/09/22 03:10 Micro: Microbiology 08/08/22 02:35 Urine Culture - Preliminary Urine Catheterized 08/07/22 11:25 Blood Culture - Preliminary Blood NEGATIVE TO DATE 08/07/22 11:22 Blood Culture - Preliminary Blood NEGATIVE TO DATE A&P Assessment and plan (1) Septic shock: (2) Leukemoid reaction: (3) Hypothermia: (4) NSTEMI (non-ST elevated myocardial infarction): (5) Hyperphosphatemia: (6) Hyperkalemia: (7) ATN (acute tubular necrosis): (8) Metabolic acidosis: (9) DKA (diabetic ketoacidosis): (10) LATASHA (acute kidney injury): Plan Septic shock?hypovolemic shock: Resolved It seems to be a mixed presentation of hypovolemia and sepsis however I have not seen any active source of infection yet but suspicion is high for hypovolemic shock Levophed weaned off Cultures negative to date Afebrile Leukocytosis trending down DKA: Resolved Bridged with subcutaneous Lantus doing 50 units and start normal saline after Hypophosphatemia: Resolved Sepsis induced/hypovolemia induced ATN Creatinine at 4 Adequate urine output Nonoliguric No signs of acidosis No indication for dialysis In case of further worsening might consult nephro Continue bicarb tablets Controlled diabetes hemoglobin A1c 12.8 Hyperphosphatemia: Improved Hypermagnesemia: Potassium 2.1 Mild muscle injury, CPK trending down Type II PR echo did not show wall motion abnormality discontinue heparin drip Full code Might be able to transfer out of ICU by tomorrow Physical deconditioning, noncompliance Lives alone Requested PT Attestations Medical Necessity Statement*: Continue medical management Diagnoses Septic shock A41.9; R65.21 Leukemoid reaction D72.823 Hypothermia T68.XXXA NSTEMI (non-ST elevated myocardial infarction) I21.4 Hyperphosphatemia E83.39 Hyperkalemia E87.5 ATN (acute tubular necrosis) N17.0 Metabolic acidosis E87.20 DKA (diabetic ketoacidosis) E11.10 LATASHA (acute kidney injury) N17.9
[2022-08-09] MEDS: potassium chloride ER 20 mEq Tablet PO (14:26)
[2022-08-09] MEDS: cefepime 1,000 MG in sodium chloride 0.9% (plus) 50 ML 100 MG IV (16:20)
[2022-08-09 16:56] LABS: Hepatitis A Antibody IgM Non-Reactive (Nonreactive); Hepatitis B Core AB, Total Non-Reactive (Nonreactive); Hepatitis B Surface Antigen Non-Reactive (Nonreactive); Hepatitis C Virus Antibody Non-Reactive (Nonreactive)
[2022-08-09 16:58] LABS: Hepatitis B Surface AB < 3.5 (11.5-1000)
[2022-08-09 17:46] LABS: Glucose Point of Care 347 mg/dL (70-110)
[2022-08-09] MEDS: insulin lispro 100 unit/1 mL SUBCUT (17:46)
[2022-08-09 21:42] LABS: Glucose Point of Care 365 mg/dL (70-110)
[2022-08-10] VITALS (21 sets, daily range): BP systolic 105–130; BP diastolic 65–84; PULSE 65–99; RESP 12–24; TEMP 37.1; O2SAT 94–99; BMI 17.6
[2022-08-10] MEDS: sodium chloride 0.9% 1,000 ML 75 ML IV (00:35)
[2022-08-10] MEDS: famotidine 20 mg/2 mL INJ IVP ×2 (03:52→15:52)
[2022-08-10 04:14] LABS: Basophils % 0.1 %; Eosinophils % 0.1 %; Hematocrit 27.8 % (42.0-52.0); Hemoglobin 9.3 g/dL (11.7-16.6); Lymphocytes # 0.8 10^3/uL (0.8-4.8); Lymphocytes % 5.6 %; Mean Corpuscular HGB Conc 33.5 g/dL (30.0-36.0); Mean Corpuscular Volume 83.7 fl (80-94); Mean Platelet Volume 10.9 fL (7.4-10.4); Monocytes # 0.6 10^3/uL (0.2-0.9); Monocytes % 4.4 %; Neutrophils # 12.35 10^3/uL (1.8-7.7); Neutrophils % 88.9 %; Nucleated Red Blood Cells % 0 %; Platelet Count 167 10^3/cmm (130-400); Red Blood Count 3.32 10^6/uL (4.1-5.3); Red Cell Distribution Width 13.5 % (12.1-15.1); White Blood Count 13.9 10^3/uL (4.0-10.0)
[2022-08-10 04:32] LABS: Anion Gap 14.2 (5-19); Blood Urea Nitrogen 59 mg/dL (8-23); Calcium 8.2 mg/dL (8.5-10.5); Carbon Dioxide 23 mmol/L (22-29); Chloride 108 mmol/L (98-107); Glomerular Filtration Rate 22.9 mL/min (90-130); Glucose 243 mg/dL (65-115); Osmolality Calculated 317 mOsm/kg (285-295); Potassium 4.2 mmol/L (3.5-5.1); Sodium 141 mmol/L (136-145)
[2022-08-10 04:40] LABS: Creatine Phosphokinase 1147 U/L (39-308)
[2022-08-10 07:28] LABS: Glucose Point of Care 99 mg/dL (70-110)
--- NOTE | 2022-08-10 08:54 | P.PN_ITS ---
Subjective Subjective: Creatinine improved Adequate urine output Can be transferred out of ICU to [facility] Hemodynamically stable Remarkable recovery DKA resolved Vitals/I&O/Wt Last Vital Signs Temp 97.9 F 08/09/22 19:00 Pulse 78 08/10/22 06:00 Resp 17 08/10/22 06:00 BP 105/65 08/10/22 06:00 Pulse Ox 97 08/10/22 05:00 O2 Del Method 08/09/22 20:00 08/09/22 08/10/22 08/10/22 22:59 06:59 14:59 Intake Total 1116 / 3316.298 1368.75 / 4685.048 Output Total 5650 / 5650 1700 / 7350 Balance -4534 / -2333.702 -331.25 / -2664.952 Weight last 48 hrs Weight 55.837 kg Weight 55.837 kg Physical Exam Narrative: Awake and alert Nonfocal neuro exam S1, S2 Currently on room air Nonfocal neuro exam Pleasant and cooperative Blood pressure stable Urinary Catheter Management: Franco: Cath Placed During This Visit: yes Reason for Continuing Indwelling Catheter: Accurate Measurement of Urinary Output in Critically Ill Patients Urinary Catheter Date of Insertion: 08/07/22 Urinary Catheter Time of Insertion: 13:04 Data 08/10/22 03:27 08/10/22 03:27 Micro: Microbiology 08/08/22 02:35 Urine Culture - Preliminary Urine Catheterized A&P Assessment and plan (1) Hypothermia: (2) Hyponatremia: (3) Elevated troponin I level: (4) Rhabdomyolysis: (5) Septic shock: (6) Leukemoid reaction: (7) Hypothermia: (8) NSTEMI (non-ST elevated myocardial infarction): (9) Hyperphosphatemia: (10) Hyperkalemia: (11) ATN (acute tubular necrosis): (12) DKA (diabetic ketoacidosis): (13) LATASHA (acute kidney injury): Plan DKA: Resolved Septic shock/hypovolemic shock: Resolved Metabolic acidosis: Resolved Franco catheter can be removed Transfer out of ICU ATN, nonoliguric, creatinine started improving with IV fluids Adequate urine output Hyperphosphatemia: Resolved Patient most likely will be able to go home next 24 hours Uncontrolled diabetes hemoglobin A1c 12.8, I have increased his Lantus dose to 50 units, Type II [place], NSTEMI echo unremarkable-discontinued no active chest brown Full code PT evaluation Discharge home tomorrow n Attestations Medical Necessity Statement*: Transfer out of ICU Diagnoses Hypothermia T68.XXXA Hyponatremia E87.1 Elevated troponin I level R77.8 Rhabdomyolysis M62.82 Septic shock A41.9; R65.21 Leukemoid reaction D72.823 Hypothermia T68.XXXA NSTEMI (non-ST elevated myocardial infarction) I21.4 Hyperphosphatemia E83.39 Hyperkalemia E87.5 ATN (acute tubular necrosis) N17.0 DKA (diabetic ketoacidosis) E11.10 LATASHA (acute kidney injury) N17.9
[2022-08-10 11:11] LABS: Glucose Point of Care 206 mg/dL (70-110)
[2022-08-10] MEDS: insulin lispro 100 unit/1 mL SUBCUT ×2 (11:13→17:21)
--- NOTE | 2022-08-10 12:17 | PC.CHAP ---
Pastoral Care Encounter/Spiritual Assessment Type of Contact [] Declined repair service clerk visit [] Patient/Family/Request visit [] Outpatient visit [] Follow-up visit [] Physician referral [] Code/Alert [x] Routine visit [] Staff referral [] Actively dying [x] Patient sleeping [] Family support [] [] Out of room [] Palliative care [] [] Receiving care in room [] Pre-surgical visit [] Trauma [] Long length of stay [x] ICU visit [] Other: Relational/Emotional Strength [] Patient feels connected with others/family/visitors/staff [] Distress [] Loneliness/isolation [] Abandonment Spirituality of Patient [] Person of Ina [] Attends Alevism of their Ina [] Believes in Prayer [] Reads Bible or Druze materials [] There are Spiritual issues to be addressed Loan Operations Manager Interventions [x] Prayer [] Active listening [] Non-anxious presence [] Spiritual/emotional support [] Crisis/trauma care [] Spiritual counseling [] Bereavement support [] Provided bereavement packet [] Provided Bible/devotional materials [] Provided toy/stuffed animal, coloring book to patient or family member [] Provided Communion [] Anointing/[place] [] Salvation [x] Completed spiritual assessment [] Other: Impact on Illness or Injury [] Angry [] Fearful [] Anxious [] Often cries [] Exhaustion [] Unable to work [] Unable to attend cheondoism [] Unable to walk/stand [] Unable to read [] Unable to drive [] Unable to eat/drink [] Unable to sleep [] Unable to be with family [] Patient intubated [] Other: Summary Time spent with patient
--- NOTE | 2022-08-10 13:15 | PC.NURSE ---
Transfer Note Patient transferred to med-surg room 276-2 from ICU via wheelchair. Handoff report given to AMARA Romero. Patient oriented to environment and equipment. Covering service notified. Orders reviewed and will continue to monitor. Family notified. Patient alert & oriented x4 at time of transfer, no wounds or skin issues noted at this time. Patient on room air.
--- NOTE | 2022-08-10 13:46 | PC.NURSE ---
Patient transfered to Med/Surg 276-2. Recieved by Nick MALONEY.
[2022-08-10 19:33] LABS: Glucose Point of Care 300 mg/dL (70-110)
[2022-08-10] MEDS: insulin glargine 100 units/1 mL 50 UNIT SUBCUT (21:23)
[2022-08-11] VITALS: BP 117/76; PULSE 76; RESP 17; TEMP 36.6; O2SAT 97
[2022-08-11 02:23] LABS: Glucose Point of Care 126 mg/dL (70-110)
[2022-08-11 04:00] VITALS: BP 108/69; PULSE 68; RESP 16; O2SAT 98
[2022-08-11] MEDS: famotidine 20 mg/2 mL INJ IVP (04:12)
[2022-08-11 05:56] LABS: Basophils % 0.1 %; Eosinophils % 0.1 %; Hematocrit 31.9 % (42.0-52.0); Hemoglobin 10.4 g/dL (11.7-16.6); Lymphocytes # 0.8 10^3/uL (0.8-4.8); Lymphocytes % 8.3 %; Mean Corpuscular HGB Conc 32.6 g/dL (30.0-36.0); Mean Corpuscular Hemoglobin 28.3 pg (28.0-34.0); Mean Corpuscular Volume 86.7 fl (80-94); Mean Platelet Volume 11.1 fL (7.4-10.4); Monocytes # 0.4 10^3/uL (0.2-0.9); Monocytes % 4.1 %; Neutrophils # 8.29 10^3/uL (1.8-7.7); Neutrophils % 87.1 %; Nucleated Red Blood Cells % 0 %; Platelet Count 188 10^3/cmm (130-400); Red Blood Count 3.68 10^6/uL (4.1-5.3); Red Cell Distribution Width 13.7 % (12.1-15.1); White Blood Count 9.5 10^3/uL (4.0-10.0)
[2022-08-11 06:17] LABS: Anion Gap 13.4 (5-19); Blood Urea Nitrogen 46 mg/dL (8-23); Calcium 8.5 mg/dL (8.5-10.5); Carbon Dioxide 26 mmol/L (22-29); Chloride 108 mmol/L (98-107); Glomerular Filtration Rate 38.2 mL/min (90-130); Glucose 55 mg/dL (65-115); Osmolality Calculated 305 mOsm/kg (285-295); Potassium 4.4 mmol/L (3.5-5.1); Sodium 143 mmol/L (136-145)
[2022-08-11 06:49] LABS: Glucose Point of Care 89 mg/dL (70-110)
--- NOTE | 2022-08-11 08:06 | P.DS_ITS ---
Discharge Providers Date of Admission: 08/07/22 14:37 Date of Discharge: August 11, 2022 Attending Provider at Admission: Kimberly Camejo MD Attending Provider at Discharge: Kimberly Camejo MD Primary Care Provider: NISHI Guthrie Diagnoses at Discharge Discharge Diagnosis (1) Hypothermia: Status: Acute (2) Hyponatremia: Status: Acute (3) Elevated troponin I level: Status: Acute (4) Rhabdomyolysis: Status: Acute (5) Septic shock: Status: Acute (6) Leukemoid reaction: Status: Acute (7) Hypothermia: Status: Acute (8) NSTEMI (non-ST elevated myocardial infarction): Status: Acute (9) Hyperphosphatemia: Status: Acute (10) Hyperkalemia: Status: Acute (11) ATN (acute tubular necrosis): Status: Acute (12) DKA (diabetic ketoacidosis): Status: Acute (13) LATASHA (acute kidney injury): Status: Acute Reason for Visit Reason for Visit: syncope Hospital Course Hospital Course 66-year male who was found on the floor naked, he was diagnosed with metabolic encephalopathy related to DKA, it took us more than 2 days to control his blood sugar and ketones, anion gap closed after 2 days, he was bridged to subcutaneous insulin 50 years of Lantus, IV fluids were continued, patient suffered with nonoliguric ATN because of severe hypotension, related to hypovolemia initially he was treated as septic shock however no active source of infection identified, cultures remain negative, antibiotics were de-escalated, after IV fluid hydration is creatinine started improving, creatinine at the time of admission 3.7, it peaked at 4.0 and then had vaginal discharge 1.8 with adequate urine output, please note he was given bicarb drip at the time of admission which was discontinued within 24 hours. He was also diagnosed with NSTEMI because of sig nificant troponin leak however echo did not show any wall motion abnormality heparin was discontinued Patient remained chest pain-free, very pleasant and cooperative, metabolic encephalopathy related to hypoglycemia: Improved He will be able to go home on Lantus 50 units along other antihyperglycemic agents, he follows up with Dr. Randall outpatient Holding lisinopril for 1 week because of creatinine Physical Exam Narrative: Pleasant and cooperative Awake and alert S1, S2 Abdomen soft GCS 15 Currently on room air Urinary Catheter Management: Franco: Cath Placed During This Visit: yes, but has since been removed by the nurse Reason for Continuing Indwelling Catheter: Accurate Measurement of Urinary Output in Critically Ill Patients Urinary Catheter Date of Insertion: 08/07/22 Urinary Catheter Time of Insertion: 13:04 Date Urinary Catheter Removed: 08/10/22 Time Urinary Catheter Discontinued: 14:05 Discharge Data Studies Completed and Pending Completed Studies During Hospitalization Category Date Time Status CT head wo con* [id number] Stat Cat Scan 08/07/22 10:59 Completed XR chest 1V portable [id number] Stat Exams 08/07/22 10:59 Completed XR chest 1V portable [id number] Stat Exams 08/07/22 12:28 Completed CV. echo complete* [id number] Routine Ultrasound 08/07/22 15:43 Completed Pending at discharge Category Date Time Status [id number] Screen w/ Reflex Routine Lab 08/09/22 15:51 Received ANCA [Anti-Neutrophil Cytoplasmic AB] Routine Lab 08/09/22 15:51 Received Anti Double Stranded DNA AB Routine Lab 08/09/22 15:51 Received Blood Culture Stat Lab 08/07/22 11:25 Results Sputum Culture and Gram Stain Stat Lab 08/07/22 15:38 Uncollected Radiology Impressions Head CT 08/07/22 10:59 IMPRESSION: 1. No evidence of intracranial hemorrhage or mass effect. 2. Mild small vessel changes with moderate parenchymal volume loss. 3. RIGHT maxillary sinusitis with inspissated secretions. 4. No acute intracranial findings. Chest X-Ray 08/07/22 12:28 IMPRESSION: 1. Right subclavian central line in satisfactory position. No acute cardiopulmonary finding. Laboratory Results WBC 9.5 10^3/uL (4.0-10.0) 08/11/22 05:41 RBC 3.68 10^6/uL (4.1-5.3) L 08/11/22 05:41 Hgb 10.4 g/dL (11.7-16.6) L 08/11/22 05:41 Hct 31.9 % (42.0-52.0) L 08/11/22 05:41 MCV 86.7 fl (80-94) 08/11/22 05:41 MCH 28.3 pg (28.0-34.0) 08/11/22 05:41 MCHC 32.6 g/dL (30.0-36.0) 08/11/22 05:41 RDW 13.7 % (12.1-15.1) 08/11/22 05:41 Plt Count 188 10^3/cmm (130-400) 08/11/22 05:41 MPV 11.1 fL (7.4-10.4) H 08/11/22 05:41 Neut % (Auto) 87.1 % 08/11/22 05:41 Lymph % (Auto) 8.3 % 08/11/22 05:41 Parker % (Auto) 4.1 % 08/11/22 05:41 Eos % (Auto) 0.1 % 08/11/22 05:41 Baso % (Auto) 0.1 % 08/11/22 05:41 Neut # (Auto) 8.29 10^3/uL (1.8-7.7) H 08/11/22 05:41 Lymph # (Auto) 0.8 10^3/uL (0.8-4.8) 08/11/22 05:41 Parker # (Auto) 0.4 10^3/uL (0.2-0.9) 08/11/22 05:41 Eos # (Auto) 0.0 10^3/uL (0.0-0.8) 08/11/22 05:41 Baso # (Auto) 0.0 10^3/uL (0.0-0.1) 08/11/22 05:41 Nucleated RBC % (auto) 0 % 08/11/22 05:41 Total Counted 100 (0-100) 08/07/22 11:07 Atypical Lymphs % Not Reportable 08/07/22 11:07 Absolute Neutrophils 21.0 10^3/cmm (1.4-6.5) H 08/07/22 11:07 Segmented Neutrophils 74 % 08/07/22 11:07 Abs Segm Neuts (Man) 19.4 10/cmm (1.6-7.1) H 08/07/22 11:07 Band Neutrophils 6.0 % 08/07/22 11:07 Abs Band Neuts (Man) 1.6 10^3/cmm (0.0-1.2) H 08/07/22 11:07 Lymphocytes (Manual) 15 % 08/07/22 11:07 Monocytes (Manual) 1.0 % 08/07/22 11:07 Absolute Monocytes 0.3 10^3/cmm (0.1-0.6) 08/07/22 11:07 Eosinophils (Manual) 0 % 08/07/22 11:07 Absolute Eosinophils 0.0 10^3/cmm (0.0-0.7) 08/07/22 11:07 Basophils (Manual) 0.0 % 08/07/22 11:07 Absolute Basophils 0.0 10^3/cmm (0.0-0.2) 08/07/22 11:07 Metamyelocytes 4.0 % 08/07/22 11:07 Nucleated RBCs # 0.0 /100WBC 08/11/22 05:41 Platelet Estimate Increased (Normal) 08/07/22 11:07 APTT 77.3 SECONDS (23.9-36.7) H 08/08/22 10:11 D-Dimer 0.66 ug/mIFEU (0-0.59) H 08/07/22 11:09 Specimen Type Arterial 08/07/22 11:23 Sample Site Radial, right 08/07/22 11:23 ABG pH 6.85 (7.35-7.45) L* 08/07/22 11:23 ABG pCO2 15.3 mmHg (35-45) L* 08/07/22 11:23 ABG pO2 182.0 mmHg (80.0-100.0) H 08/07/22 11:23 ABG HCO3 2.7 mmol/L (22-26) L 08/07/22 11:23 ABG O2 Saturation 99.0 08/07/22 11:23 ABG Base Excess -29.3 mmol/L (-2.0-2.0) L 08/07/22 11:23 Amadou Test Pos 08/07/22 11:23 A-a O2 Gradient Not Reportable 08/07/22 11:23 Hematocrit 29.9 % (42-52) L 08/07/22 11:23 Hgb O2 Saturation 97.1 % (95-100) 08/07/22 11:23 Carboxyhemoglobin 0.9 %THgb (0.4-20.1) 08/07/22 11:23 Methemoglobin 1.0 % (0.4-1.5) 08/07/22 11:23 Total Hemoglobin 9.8 g/dL (14-18) L 08/07/22 11:23 Sodium 115.0 mmol/L (131-143) L 08/07/22 11:23 Potassium 6.7 mmol/L (3.5-5.0) H 08/07/22 11:23 Glucose > 1080.0 mg/dL (70-115) H 08/07/22 11:23 Ionized Calcium 1.1 mmol/L (1.1-1.4) 08/07/22 11:23 O2 Delivery Device None 08/07/22 11:23 Purchasing Department Clerk ID [place] 08/07/22 11:23 Sodium 143 mmol/L (136-145) 08/11/22 05:41 Potassium 4.4 mmol/L (3.5-5.1) 08/11/22 05:41 Chloride 108 mmol/L (98-107) H 08/11/22 05:41 Carbon Dioxide 26 mmol/L (22-29) 08/11/22 05:41 Anion Gap 13.4 (5-19) 08/11/22 05:41 BUN 46 mg/dL (8-23) H 08/11/22 05:41 Creatinine 1.8 mg/dL (0.7-1.2) H 08/11/22 05:41 GFR Calculation 38.2 mL/min (90-130) L 08/11/22 05:41 Glucose 55 mg/dL (65-115) L 08/11/22 05:41 POC Glucose 89 mg/dL (70-110) 08/11/22 06:42 Estimat Average Glucose 321 08/07/22 12:47 Hemoglobin A1c 12.8 % (4.0-6.0) H 08/07/22 12:47 Calculated Osmolality 305 mOsm/kg (285-295) H 08/11/22 05:41 Lactic Acid 3.9 mmol/L (0.5-2.2) H 08/07/22 11:25 Lactic Acid (Sepsis) 1.8 mmol/L (0.5-2.2) 08/07/22 14:52 Lactate 2.8 mmol/L (0.5-2.2) H 08/07/22 19:05 Calcium 8.5 mg/dL (8.5-10.5) 08/11/22 05:41 Phosphorus 4.1 mg/dL (2.5-4.5) D 08/08/22 03:52 Magnesium 2.1 mg/dL (1.7-2.3) 08/08/22 03:52 Total Bilirubin 0.3 mg/dL (0.15-1.2) 08/08/22 03:52 AST 112 U/L (0-40) H 08/08/22 03:52 ALT 49 U/L (0-41) H 08/08/22 03:52 Alkaline Phosphatase 96 U/L (40-130) 08/08/22 03:52 Creatine Kinase 1147 U/L (39-308) H* 08/10/22 03:27 Troponin T Baseline 165 ng/L (0-15) H* 08/07/22 12:47 Troponin T 120 Minute 188.4 ng/L (0-15) H 08/07/22 14:52 Delta Troponin T 23.4 ABS# (0-10) H* 08/07/22 14:52 Troponin T Hi Sens 6Hr 212.3 ng/L (0-15) H 08/07/22 19:05 Troponin T Hi Sens 6Hr Delta 47.3 ng/L (0-12) H* 08/07/22 19:05 Total Protein 5.1 g/dL (6.6-8.7) L 08/08/22 03:52 Albumin 3.1 g/dL (3.5-5.2) L 08/08/22 03:52 Globulin 2.0 g/dL (1.3-4.6) 08/08/22 03:52 Lipase 62 U/L (13-60) H 08/07/22 12:47 Procalcitonin 2.92 ng/mL (0-0.5) H 08/07/22 14:52 TSH 1.08 uIU/mL (0.27-4.20) 08/07/22 12:47 Urine Color Yellow (Yellow) 08/07/22 13:01 Urine Appearance Clear (CLEAR) 08/07/22 13:01 Urine pH 5 (5-7) 08/07/22 13:01 Ur Specific [place] 1.020 (1.005-1.030) 08/07/22 13:01 Urine Protein Trace (Negative) 08/07/22 13:01 Urine Glucose (UA) 4+ (Normal) H 08/07/22 13:01 Urine Ketones 2+ (Negative) H 08/07/22 13:01 Urine Blood Neg (Negative) 08/07/22 13:01 Urine Nitrate Negative (Negative) 08/07/22 13:01 Urine Bilirubin Neg (Negative) 08/07/22 13:01 Urine Urobilinogen Norm mg/dL (Negative) 08/07/22 13:01 Ur Leukocyte Esterase Negative (Negative) 08/07/22 13:01 Urine RBC Rare /hpf (0-2) 08/07/22 13:01 Urine WBC 0-4 /hpf (0-5) H 08/07/22 13:01 Ur Eosinophil Smear 0 (0-0) 08/08/22 13:50 Ur Squamous Epith Cells 0-4 /hpf (0-5) H 08/07/22 13:01 Amorphous Sediment 1+ /hpf 08/07/22 13:01 Urine Bacteria Trace /hpf (NONE) 08/07/22 13:01 Hyaline Casts 0-4 /lpf H 08/07/22 13:01 Urine Mucus Trace /hpf 08/07/22 13:01 Urine Eosinophils No eosinophils seen 08/08/22 13:50 Ur Random Microalbumin 2 ug/dL (0-20) 08/08/22 13:50 Ur Random Sodium 104 mmol/L 08/08/22 13:50 Ur Random Potassium 11 mmol/L 08/08/22 13:50 Ur Random Chloride 99 mmol/L 08/08/22 13:50 Urine Creatinine 12 mg/dL (39-259) L 08/08/22 13:50 Microalb/Creat Ratio 167 mg/dL (0-20) H 08/08/22 13:50 Salicylates 0.4 mg/dL (3-10) L 08/07/22 12:47 Urine Opiates Screen Negative ng/mL (Negative) 08/08/22 02:35 Acetaminophen < 5.0 ug/mL (10-30) L 08/07/22 12:47 Ur Barbiturates Screen Negative ng/mL (Negative) 08/08/22 02:35 Ur Phencyclidine Scrn Negative ng/mL (Negative) 08/08/22 02:35 Ur Amphetamines Screen Negative ng/mL (Negative) 08/08/22 02:35 U Benzodiazepines Scrn Negative ng/mL (Negative) 08/08/22 02:35 Urine Cocaine Screen Negative ng/mL (Negative) 08/08/22 02:35 U Marijuana (THC) Screen Negative ng/mL (Negative) 08/08/22 02:35 Ethyl Alcohol < 10 mg/dL (0-10) 08/07/22 14:52 Serum Ketones Positive (Negative) H 08/07/22 11:09 Hepatitis A IgM Ab Non-reactive (Nonreactive) 08/09/22 15:51 Hep Bs Antigen Non-reactive (Nonreactive) 08/09/22 15:51 Hep Bs Antibody < 3.5 (11.5-1000) L 08/09/22 15:51 Hep B Core Total Ab Non-reactive (Nonreactive) 08/09/22 15:51 Hepatitis C Antibody Non-reactive (Nonreactive) 08/09/22 15:51 Vitals Last Vital Signs Temp 97.8 F 08/11/22 00:00 Pulse 68 08/11/22 04:00 Resp 16 08/11/22 04:00 BP 108/69 08/11/22 04:00 Pulse Ox 98 08/11/22 04:00 O2 Del Method 08/11/22 04:00 O2 Flow Rate 0 08/10/22 19:52 Discharge Plan Discharge Patient Disposition: Home Condition: Stable Prescriptions: Continued metformin 500 mg tablet extended release 24 hr 500 mg PO BID albuterol sulfate [ProAir HFA] 90 mcg/actuation HFA aerosol inhaler 2 puff inhalation QID PRN (Reason: Shortness Of Breath) ferrous sulfate 325 mg (65 mg iron) tablet 325 mg PO DAILY insulin glargine 100 unit/mL solution 50 unit SUBCUT DAILY Qty: 15 3RF glipizide 10 mg tablet 20 mg PO BID Qty: 60 0RF acarbose 50 mg tablet 50 mg PO TID Qty: 90 0RF fluticasone propion-salmeterol 250-50 mcg/dose Blister With Device 1 inh INHALATION BID omega-3 fatty acids 500 mg Capsule 1,000 mg PO BID Held lisinopril 10 mg Tablet 5 mg PO DAILY Hold Instructions: Resume on 08/18/22. Discharge Orders: Discharge Order (Routine); Ordered 08/11/22 Ordered By: Kimberly Camejo Referrals: Ava Hunt FNP [Primary Care Provider] - 08/18/22 9:30 am Martin Randall MD [Physician] - 2 weeks Discharge Diet: Diabetic Discharge Activity: Increase activity as tolerated Patient Instructions: Diabetic Ketoacidosis (GEN), Type 2 Diabetes in the Older Adult (GEN), Opioid Safety Discharge Attestations Time Spent in Discharge Care*: less than 30 min Quality Metrics Clinical Quality Measures [ No reported AMI, CVA or VTE this stay] Coding Level of Care Code Acute Code for Chg Fwd Diagnoses Hypothermia T68.XXXA Hyponatremia E87.1 Elevated troponin I level R77.8 Rhabdomyolysis M62.82 Septic shock A41.9; R65.21 Leukemoid reaction D72.823 Hypothermia T68.XXXA NSTEMI (non-ST elevated myocardial infarction) I21.4 Hyperphosphatemia E83.39 Hyperkalemia E87.5 ATN (acute tubular necrosis) N17.0 DKA (diabetic ketoacidosis) E11.10 LATASHA (acute kidney injury) N17.9
[2022-08-11 09:57] VITALS: PULSE 68; RESP 16; O2SAT 98
[2022-08-11 11:02] LABS: Glucose Point of Care 215 mg/dL (70-110)
[2022-08-11 13:19] LABS: Anti-Double Strand DNA AB <1 IU/mL
[2022-08-12 11:21] LABS: Anti-Nuclear Antibody Screen NEGATIVE (NEGATIVE)
[2022-08-13 01:50] LABS: ANCA Screen NEGATIVE (NEGATIVE)
== END 2022-08-11 12:15 | disposition home health service (06) | DRG 637 ==
LOC: ER 13:50 → ICU 14:38 → MEDSURG 08-10 13:18
PROVIDERS: Internal Medicine; Admitting Provider Internal Medicine; Emergency Provider Family Medicine; PCP Nurse Practitioner; Visit Provider Internal Medicine
DX: E11.10 Type 2 diabetes mellitus with ketoacidosis without coma (principal); G93.41 Metabolic encephalopathy; N17.0 Acute kidney failure with tubular necrosis; R57.1 Hypovolemic shock; I21.A1 Myocardial infarction type 2; M62.82 Rhabdomyolysis; I95.9 Hypotension, unspecified; Z79.84 Long term (current) use of oral hypoglycemic drugs; R68.0 Hypothermia, not associated with low environmental temperature; I44.0 Atrioventricular block, first degree; E78.2 Mixed hyperlipidemia; Z87.891 Personal history of nicotine dependence; D53.9 Nutritional anemia, unspecified; I10 Essential (primary) hypertension; N40.0 Benign prostatic hyperplasia without lower urinary tract symptoms
CPT/HCPCS: 36415; 36416; 36556; 36592; 36600; 51702; 70450; 71045; 80048; 80051; 80053; 80306; 80307; 81001; 82009; 82044; 82330; 82436; 82550; 82805; 82962; 83036; 83605; 83690; 83735; 84100; 84133; 84145; 84300; 84443; 84484; 85007; 85025; 85378; 85730; 85999; 86036; 86038; 86225; 86705; 86706; 86709; 86803; 87040; 87086; 87340; 93005; 93306; 94664; 96365; 96366; 96367; 96372; 96375; 97116; 97161; 99285; J0692; J1644; J1815; J1940; J2543; J3370; J3490; J7030; J7050; J7060

== ENCOUNTER → 2022-08-12 13:23 | Outpatient (BNVA) | payer OTHER, SELFPAY | PROVIDERS: PCP Nurse Practitioner; Visit Provider Internal Medicine | DX: E11.65 Type 2 diabetes mellitus with hyperglycemia (principal); E78.2 Mixed hyperlipidemia; Z79.84 Long term (current) use of oral hypoglycemic drugs; Z79.4 Long term (current) use of insulin | CPT/HCPCS: 99214 ==

== ENCOUNTER 2022-09-14 06:00 | Oncology outpatient (recurring) (ONCR) | payer OTHER, SELFPAY | END 2022-10-11 23:59 | disposition home or self-care (01) | LOC: ONCMED 09-22 11:21 | PROVIDERS: PCP Nurse Practitioner; Visit Provider Internal Medicine Medical Oncology | DX: D64.9 Anemia, unspecified (principal); Z87.891 Personal history of nicotine dependence; Z79.899 Other long term (current) drug therapy | CPT/HCPCS: 99213 ==

== ENCOUNTER → 2022-11-05 14:31 | Outpatient (BNVA) | payer OTHER, SELFPAY | PROVIDERS: PCP Nurse Practitioner; Visit Provider Internal Medicine | DX: E11.65 Type 2 diabetes mellitus with hyperglycemia (principal); E78.2 Mixed hyperlipidemia; Z79.4 Long term (current) use of insulin | CPT/HCPCS: 36415; 80053; 80061; 82044; 82310; 83036; 83970; 99214 ==

== ENCOUNTER → 2022-11-30 11:44 | Outpatient (BNVA) | payer OTHER, SELFPAY | PROVIDERS: PCP Nurse Practitioner; Visit Provider Internal Medicine Cardiovascular Disease | DX: R07.9 Chest pain, unspecified (principal); R06.02 Shortness of breath; I10 Essential (primary) hypertension; J44.9 Chronic obstructive pulmonary disease, unspecified; E11.65 Type 2 diabetes mellitus with hyperglycemia; F17.200 Nicotine dependence, unspecified, uncomplicated | CPT/HCPCS: 93005; 99204 ==

== ENCOUNTER 2023-01-27 14:11 | Oncology outpatient (recurring) (ONCR) | payer OTHER, SELFPAY ==
[2023-01-27 14:14] VITALS: BP 108/72; PULSE 100; RESP 18; TEMP 36.9; O2SAT 99
[2023-01-27 14:29] LABS: Basophils % 0.2 %; Eosinophils % 0.4 %; Hematocrit 35.9 % (42.0-52.0); Hemoglobin 12.2 g/dL (11.7-16.6); Lymphocytes # 2.1 10^3/uL (0.8-4.8); Lymphocytes % 25.8 %; Mean Corpuscular Volume 85.5 fl (80-94); Mean Platelet Volume 9.7 fL (7.4-10.4); Monocytes # 0.4 10^3/uL (0.2-0.9); Monocytes % 4.7 %; Neutrophils # 5.71 10^3/uL (1.8-7.7); Neutrophils % 68.7 %; Nucleated Red Blood Cells % 0 %; Platelet Count 428 10^3/cmm (130-400); Red Cell Distribution Width 12.3 % (12.1-15.1); White Blood Count 8.3 10^3/uL (4.0-10.0)
[2023-01-27 14:50] LABS: Alanine Aminotransferase 60 U/L (0-41); Alkaline Phosphatase 127 U/L (40-130); Anion Gap 14.2 (5-19); Aspartate Amino Transferase 23 U/L (0-40); Blood Urea Nitrogen 27 mg/dL (8-23); Carbon Dioxide 29 mmol/L (22-29); Chloride 94 mmol/L (98-107); Ferritin 197 ng/mL (30-400); Globulin 2.6 g/dL (1.3-4.6); Glucose 408 mg/dL (65-115); Iron 64 ug/dL (59-158); Osmolality Calculated 298 mOsm/kg (285-295); Potassium 4.2 mmol/L (3.5-5.1); Sodium 133 mmol/L (136-145); Total Bilirubin 0.4 mg/dL (0.15-1.2); Total Iron Binding Capacity 255 mcg/dl; Total Protein 6.6 g/dL (6.6-8.7); Unsaturated Iron Binding 191 ug/dL (112-347)
== END 2023-02-11 23:59 | disposition home or self-care (01) ==
PROVIDERS: Nurse Practitioner Family; PCP Nurse Practitioner; Visit Provider Internal Medicine Medical Oncology
DX: D64.9 Anemia, unspecified (principal)
CPT/HCPCS: 36415; 80053; 82728; 83540; 83550; 85025; 99213

== ENCOUNTER → 2023-10-11 12:20 | Outpatient (BNVA) | payer OTHER, SELFPAY | PROVIDERS: PCP Nurse Practitioner; Visit Provider Internal Medicine | DX: E11.65 Type 2 diabetes mellitus with hyperglycemia (principal); E78.2 Mixed hyperlipidemia; Z79.4 Long term (current) use of insulin | CPT/HCPCS: 36415; 80053; 80061; 82044; 83036; 84439; 84443; 84480; 84681; 86337; 86341; 99214 ==

== ENCOUNTER → 2023-10-26 11:53 | Outpatient (BNVA) | payer OTHER, SELFPAY | PROVIDERS: PCP Nurse Practitioner; Visit Provider Internal Medicine | DX: E10.9 Type 1 diabetes mellitus without complications (principal); E78.2 Mixed hyperlipidemia; Z79.4 Long term (current) use of insulin | CPT/HCPCS: 99214 ==

== ENCOUNTER 2024-01-17 14:32 | Outpatient (CLI) | payer OTHER, SELFPAY ==
[2024-01-17 15:14] LABS: Alanine Aminotransferase 20 U/L (0-41); Albumin Level 4.5 g/dL (3.5-5.2); Alkaline Phosphatase 125 U/L (40-130); Anion Gap 17.8 (5-19); Aspartate Amino Transferase 15 U/L (0-40); Blood Urea Nitrogen 23 mg/dL (8-23); Calcium 9.3 mg/dL (8.5-10.5); Carbon Dioxide 24 mmol/L (22-29); Chloride 94 mmol/L (98-107); Chol HDL Ratio 4.38 mg/dL (1.0-5.00); Cholesterol 263 mg/dL (0-200); Globulin 3.2 g/dL (1.3-4.6); Glomerular Filtration Rate 74.8 mL/min (90-130); Glucose 478 mg/dL (65-115); HDL Cholesterol 60 mg/dL (60-100); LDL Cholesterol Calculated 138 mg/dL (50-129); Osmolality Calculated 297 mOsm/kg (285-295); Potassium 4.8 mmol/L (3.5-5.1); Sodium 131 mmol/L (136-145); Total Bilirubin 0.3 mg/dL (0.15-1.2); Total Protein 7.7 g/dL (6.6-8.7); Triglycerides 327 mg/dL (0-150)
[2024-01-17 15:23] LABS: Estmated Average Glucose 272; Hemoglobin A1C 11.1 % (4.0-6.0)
[2024-01-17 15:26] LABS: Creatinine Urine, Random 72 mg/dL (39-259); Microalbum Creatinine Ratio Ur 14 mg/dL (0-20); Microalbumin Random Urine 1 ug/dL (0-20)
== END 2024-01-17 14:33 | disposition home or self-care (01) ==
LOC: LAB 14:34
PROVIDERS: PCP Nurse Practitioner; Visit Provider Internal Medicine
DX: E10.9 Type 1 diabetes mellitus without complications (principal); E78.2 Mixed hyperlipidemia
CPT/HCPCS: 36415; 80053; 80061; 82044; 83036; 99214

== ENCOUNTER 2024-02-19 14:42 | Emergency (ER) | payer OTHER, SELFPAY ==
[2024-02-19 15:01] LABS: ABG PCO2 81.7 mmHg (35-45); ABG PH Result 6.85 (7.35-7.45); Arterial Blood Gas Hematocrit 32.3 % (42-52); Base Excess ABG -19.7 mmol/L (-2.0-2.0); Blood Gas Allen Test Pos; Blood Gas Operator Identificat WALCI; Blood Gas Sample Site Radial, right; Blood Gas Sample Type Arterial; Carboxyhemoglobin 0.6 %THgb (0.4-20.1); Glucose Level-ABG > 1080.0 mg/dL (70-115); HCO3 ABG 14.2 mmol/L (22-26); Ionized Calcium Level - ABG 1.9 mmol/L (1.1-1.4); Methemoglobin 1.2 % (0.4-1.5); Oxygen Device AMBU; Oxygen Saturation ABG 77.3; Potassium Level - ABG 9.4 mmol/L (3.5-5.0); Total Hemoglobin 10.6 g/dL (14-18)
--- NOTE | 2024-02-19 15:03 | XRR_ITS ---
PROCEDURE INFORMATION: Exam: XR Chest Exam date and time: 02/19/2024 2:46 PM Age: 68 years old Clinical indication: Device placement; Other: Et, ng and central line placement; Additional info: Code blue TECHNIQUE: Imaging protocol: Radiologic exam of the chest. Views: 1 view. COMPARISON: CR XR chest 1V portable [id number] 08/07/2022 12:34 PM FINDINGS: Tubes, catheters and devices: Distal ET tube projects 4.1 cm superior to the zoë. Distal aspect of the central venous catheter terminates at the cavoatrial junction. G-tube passes below the hemidiaphragms with the distal aspect not visualized. Lungs: Unremarkable. No consolidation. Pleural spaces: Unremarkable. No pleural effusion. No pneumothorax. Heart/Mediastinum: Unremarkable. No cardiomegaly. Vasculature: There is minimal calcified plaque in the aortic arch similar to the prior study. Bones/joints: Unremarkable. XR/XR chest 1V portable [id number] IMPRESSION: 1. Distal ET tube projects 4.1 cm superior to the zoë. 2. Distal aspect of the central venous catheter terminates at the cavoatrial junction. 3. G-tube passes below the hemidiaphragms with the distal aspect not visualized.
--- NOTE | 2024-02-19 15:03 | ECG_ITS ---
[facility] Test Date: 2024-02-18 Pat Name: Aislinn Eloise Department: Room: Gender: Male Bladder Blower: : 1955 Requested By: Christy Douglas Order Number: [id number] Veronica MD: BILLY RANGEL Measurements Intervals Constantia Rate: 72 P: 90 CA: 178 QRS: -36 QRSD: 134 T: 30 QT: 451 QTc: 496 Interpretive Statements SINUS RHYTHM LEFT AXIS DEVIATION [QRS AXIS < -30] RIGHT BUNDLE BRANCH BLOCK [120+ ms QRS DURATION, UPRIGHT V1, 40+ ms S IN I/aVL/V4/V5/V6] INTERPRETATION BASED ON A DEFAULT AGE OF 40 YEARS Compared to ECG 11/30/2022 11:51:35 Left-axis deviation now present Right bundle-branch block now present Electronically Signed On 02-20-2024 18:55:25 CDT by BILLY RANGEL [id number] f
[2024-02-19 15:10] LABS: Hematocrit 36.2 % (37-53); Mean Corpuscular Hemoglobin 29.3 pg (27-33); Mean Corpuscular Volume 101.1 fl (82-101); Mean Platelet Volume 10.7 fL (7.4-10.4); Platelet Count 426 10^3/cmm (157-399); Red Blood Count 3.58 10^6/uL (3.85-5.65); Red Cell Distribution Width 12.9 % (12.1-15.1)
[2024-02-19 15:17] VITALS: RESP 16
[2024-02-19 15:18] LABS: Ketone (Acetest) Serum Positive (Negative)
[2024-02-19 15:20] LABS: Slide Review Slide Review Perform
--- NOTE | 2024-02-19 15:20 | PC.NURSE ---
PATIENT PRESENTS TO ER IN FAMILY VEHICLE WITH BROTHER. THIS NURSE, YESSICA MALONEY, PAULETTE CCT PRESENT TO VEHICLE TO FIND PATIENT UNRESPONSIVE AND CURLED IN THE FLOOR BOARD. NO PULSE PALPATED BY AMARA JUAN. PATIENT PULLED FROM VEHICLE AND PLACED INTO ROOM 7. CPR INITIATED AT THAT TIME.
[2024-02-19 15:21] LABS: White Blood Count 35.87 10^3/uL (3.29-11.43)
[2024-02-19 15:23] LABS: Alanine Aminotransferase 272 U/L (0-41); Alkaline Phosphatase 167 U/L (40-130); Aspartate Amino Transferase 483 U/L (0-40); Blood Urea Nitrogen 51 mg/dL (8-23); Carbon Dioxide 12 mmol/L (22-29); Chloride 71 mmol/L (98-107); Globulin 2.3 g/dL (1.3-4.6); Glomerular Filtration Rate 23.8 mL/min (90-130); Sodium 123 mmol/L (136-145); Total Bilirubin 0.2 mg/dL (0.15-1.2); Total Protein 5.3 g/dL (6.6-8.7)
[2024-02-19 15:24] LABS: Absolute Segmented Neutrophil 25.1 10/cmm (1.6-7.1); Band Neutrophils Absolute 3.6 10^3/cmm (0.0-1.2); Eosinophils 0 %; Lymphocytes 12 %; Lymphocytes Absolute 4.3 10^3/cmm (1.2-3.4); Monocytes Absolute 0.4 10^3/cmm (0.1-0.6); Segmented Neutrophils 70 %; Total Cells Counted 100 (0-100); Troponin(5th) Baseline 94 ng/L (0-15)
[2024-02-19 15:25] LABS: Anisocytosis 1+; Giant Platelets 1+; Macrocytosis Trace
[2024-02-19 15:26] LABS: Absolute Neutrophil 28.7 10^3/cmm (1.4-6.5); Platelet Estimate Normal (Normal)
[2024-02-19 15:32] LABS: Osmolality Calculated 341 mOsm/kg (285-295)
[2024-02-19 15:34] LABS: Anion Gap 49.7 (5-19); Calcium 14.9 mg/dL (8.5-10.5); Glucose 1391 mg/dL (65-115); Potassium 9.7 mmol/L (3.5-5.1)
[2024-02-19 15:35] VITALS: PULSE 140; RESP 16; O2SAT 98
[2024-02-19 15:35] LABS: Lactic Sepsis W/Reflex 12.3 mmol/L (0.5-2.2)
[2024-02-19] MEDS: albuterol 2.5 mg/3 mL Neb 10 MG INHALATION (15:38)
--- NOTE | 2024-02-19 15:45 | PC.NURSE ---
SEE CODE SHEET BY HOUSE SUP FOR CODE DETAILS.
[2024-02-19 16:00] VITALS: BP 44/30; PULSE 12; RESP 16; O2SAT 88
--- NOTE | 2024-02-19 16:02 | PC.NURSE ---
patient was brought in by private vehicle and when he was brought into facility and placed into room 7 there was no pulse palpable. CPR initiated by ER staff and provider was present in room. pt was in asystole, and then v tach, and eventually he went into a bradycardiac rhythm. pt is still in bradycardic rhythm at this time. pt has multiple IVs as well as a central line. pt has multiple medications running through the lines. pt has multiple critical labs and critical drips infusing in attempt to exhaust all efforts to keep patient perfusing organs and body parts. see house supervisors note on medications and what time they were administered.
--- NOTE | 2024-02-19 16:07 | ED_ITS ---
HPI - General Adult 2 General: Chief complaint: Cardiac Arrest/CPR Stated complaint: diabetic Time Seen by Provider: 02/19/24 14:50 History of Present Illness: 68-year-old male who arrives in private vehicle family came in and advised that he was nonresponsive with staff started by the car he was in cardiorespiratory arrest was called to bedside CPR and ACLS protocols were initiated see notes below Related Data Home Medications Medication Instructions Recorded Confirmed albuterol sulfate 90 mcg/actuation 2 puff inhalation QID PRN 09/09/21 01/17/24 aerosol inhaler (ProAir HFA) Shortness Of Breath ferrous sulfate 325 mg (65 mg 325 mg PO DAILY 03/31/22 01/17/24 iron) tablet lisinopril 10 mg tablet 5 mg PO DAILY 05/19/22 01/17/24 atorvastatin 10 mg tablet 10 mg PO DAILY 09/14/22 01/17/24 fluticasone 250 mcg-salmeterol 50 1 inh inhalation BID PRN 11/30/22 01/17/24 mcg/dose blistr powdr for inhalation multivitamin 1 tab PO DAILY 11/30/22 01/17/24 omega-3 fatty acids 1,000 mg 1,000 mg PO DAILY 11/30/22 01/17/24 capsule ascorbate calcium (vitamin C) 500 500 mg PO DAILY 01/17/24 01/17/24 mg tablet Previous Rx's Medication Instructions Recorded insulin glargine 100 unit/mL 50 unit (0.5 mL) SUBCUT DAILY #15 08/11/22 subcutaneous solution mL insulin aspart U-100 100 unit/mL 50 unit (0.5 mL) SUBCUT DAILY 30 10/11/23 (3 mL) subcutaneous pen (Novolog days #45 mL FlexPen U-100 Insulin aspart) dexcom G6 Reciever #1 ea 11/02/23 blood-glucose meter,continuous #1 ea 11/15/23 (Dexcom G7 Preload Supervisor) blood-glucose sensor (Dexcom G6 #9 ea 11/15/23 Sensor device) blood-glucose sensor (Dexcom G7 #9 ea 11/15/23 Sensor device) Allergies Allergy/AdvReac Type Severity Reaction Status Date / Time No Known Allergies Allergy Verified 01/17/24 15:06 Review of Systems 2 General: Reports: ROS unobtainable due to endotracheal tube and ROS unobtainable due to medical condition [facility] ED 2 PFSH: Medical History Rhabdomyolysis Elevated troponin I level Hyponatremia Hypothermia Septic shock Leukemoid reaction Hypothermia NSTEMI (non-ST elevated myocardial infarction) Hyperphosphatemia Hyperkalemia ATN (acute tubular necrosis) Metabolic acidosis DKA (diabetic ketoacidosis) COPD exacerbation LATASHA (acute kidney injury) Anemia, macrocytic Diabetic ketoacidosis associated with type 2 diabetes mellitus Benign prostatic hyperplasia Degenerative arthritis COPD (chronic obstructive pulmonary disease) Anemia Essential (primary) hypertension Mixed hyperlipidemia due to type 2 diabetes mellitus Diabetes type 2, uncontrolled Surgical History No pertinent past surgical history Family History Father Gout Mother No problems noted. Social History Smoking and tobacco/nicotine status: current every day tobacco/nicotine user (chewing tobacco) smokeless tobacco Smokeless tobacco user: chewing tobacco Second hand smoke exposure: No Alcohol intake: current Alcohol intake frequency: holidays/special occasions only Alcohol type: beer Substance/Drug Use: current Substance/Drug use frequency: few times a week Adopted: No Caregiver/support person: No Lives independently: Yes Household members: none Housing: House Marital status: Single Highest education level completed: High School Graduate service: Yes Current occupational status: retired Physical Exam 2 Const: COMMON NORMALS: no acute distress GENERAL APPEARANCE: cooperative and comfortable ORIENTATION/CONSCIOUSNESS: Yes awake HENMT: COMMON NORMALS: normocephalic, atraumatic and hearing grossly normal bilaterally HEAD & SCALP: normocephalic and atraumatic Resp: OTHER: No respiratory effort Cardio: OTHER: No palpable pulse on initial exam Skin: COMMON NORMALS: no rashes or lesions noted GENERAL SKIN EXAM: no rashes or lesions noted Procedures Central Line Placement Right IJ: Time Out Performed: Yes Patient Placed on Monitor/Pulse Ox: Yes MD Prep: mask, gown and gloves Central Line Prep: Chlorhexidine scrub Ultrasound Used for Placement: Yes Central Line Lumen Inserted: triple Post Procedure: sutured in place Post Procedure X-Ray: tip of catheter in good position and no pneumothorax seen Patient Tolerated Procedure: well Complications: none Intubation Time out performed: Yes sedative: none Laryngoscope: fiber optic video scope ET Tube Size: 8.5 ET Tube Uncuffed: No Tube Secured Depth (cm): 25 Tube Secured Location: teeth Tube Placement Confirmation: visualized tube passing through cords, equal breath sounds bilaterally, no breath sounds over epigastrium and confirmation by capnometry Patient Tolerated Procedure: well Intubation Complications: none Additional Comments: On initial chest x-ray tube is just above the zoë was withdrawn to 22 cm at the teeth. Repeat x-ray confirms good placement Course 2 Vital Signs: Vital signs: Vital Signs Pulse Rate 0 L 02/19/24 18:25 Respiratory Rate 16 02/19/24 16:00 Blood Pressure 0/0 02/19/24 18:25 Pulse Oximetry 0 L 02/19/24 18:25 Oxygen Delivery Me thod Mechanical Ventil ation 02/19/24 16:00 Fraction of Inspir ed Oxygen 100 02/19/24 15:35 MDM - General Adult Medical Decision Making CPR started initially and patient intubated CV code notes for the medications given. While we were performing ACLS protocols we pulled his old records they quickly reviewed and seen his had multiple episodes of DKA glucose at the bedside simply read high. Based on this suspected that his most likely cause of arrest was hyperkalemia related to DKA. He was given sodium bicarb and calcium chloride. He did seem to respond to this and we were able to achieve ROSC. Patient became bradycardic he was given atropine which she did respond to as well. He had runs of V. tach amiodarone was given at 150 mg push and then amiodarone drip was started. Later he became more bradycardic and this was stopped. Patient was given several more doses of calcium chloride as well as sodium bicarb see the code notes for times. Additionally was given IV push insulin and started on IV insulin drip. Pressors were started as well initially Levophed which was titrated up then dopamine was added and titrated up and an epi drip was started. Patient poor response to all of these medications. Because of his recurrent bradycardia he was given more atropine. The dose did exceed the amounts usually given per ACLS protocols however we had no other medications to give at this point since he was already on multiple drips and the amiodarone had already been stopped. In addition to all this we continue to give him sodium bicarb and calcium chloride in an attempt to lower his potassium to improve his rhythm. He only got his serum electrolytes back his calcium was elevated so we did not not give any further calcium chloride. Albuterol was also given in addition to the other approaches to treat his hyperkalemia. Patient did not respond well to any of these despite all these efforts his blood pressure remained less than 50 systolic with heart rate with him teens and 20s. Discussed with the family that at this point there was no other treatment options left and it was not likely that he would survive. Reinitiating CPR was unlikely to be helpful. Brother is in agreement. Drips are maintained till other family members arrived. Check several times he Dilt still does have cardiac activity with heartbeats but his rate is in the 15-20 range at most at times he will go up to 40s and 50s briefly and then decrease back down. Brother at the bedside is agreeable to not initiating any further life-saving interventions. Other family members arrived after further discussion they have all agreed on stopping all of the IV medications and terminally extubating. Patient shortly after. Time of 1718. Medical Records I reviewed the patient's medical records. Lab Data I reviewed the patient's lab results. 02/19/24 14:56 02/19/24 14:56 Radiology Impressions Chest X-Ray 02/19/24 15:03 IMPRESSION: 1. Distal ET tube projects 4.1 cm superior to the zoë. 2. Distal aspect of the central venous catheter terminates at the cavoatrial junction. 3. G-tube passes below the hemidiaphragms with the distal aspect not visualized. Laboratory Results WBC 35.87 10^3/uL (3.29-11.43) H* 02/19/24 14:56 RBC 3.58 10^6/uL (3.85-5.65) L 02/19/24 14:56 Hgb 10.50 g/dL (11.27-16.99) L 02/19/24 14:56 Hct 36.2 % (37-53) L 02/19/24 14:56 MCV 101.1 fl (82-101) H 02/19/24 14:56 MCH 29.3 pg (27-33) 02/19/24 14:56 MCHC 29.0 g/dL (30-55) L 02/19/24 14:56 RDW 12.9 % (12.1-15.1) 02/19/24 14:56 Plt Count 426 10^3/cmm (157-399) H 02/19/24 14:56 MPV 10.7 fL (7.4-10.4) H 02/19/24 14:56 Lymph % (Auto) Not Reportable 02/19/24 14:56 [place] % (Auto) Not Reportable 02/19/24 14:56 Lymph # (Auto) Not Reportable 02/19/24 14:56 [place] # (Auto) Not Reportable 02/19/24 14:56 Total Counted 100 (0-100) 02/19/24 14:56 Atypical Lymphs % 0.0 % (0-5) 02/19/24 14:56 Absolute Neutrophils 28.7 10^3/cmm (1.4-6.5) H 02/19/24 14:56 Segmented Neutrophils 70 % 02/19/24 14:56 Abs Segm Neuts (Man) 25.1 10/cmm (1.6-7.1) H 02/19/24 14:56 Band Neutrophils 10.0 % 02/19/24 14:56 Abs Band Neuts (Man) 3.6 10^3/cmm (0.0-1.2) H 02/19/24 14:56 Absolute Lymphocytes 4.3 10^3/cmm (1.2-3.4) H 02/19/24 14:56 Lymphocytes (Manual) 12 % 02/19/24 14:56 Monocytes (Manual) 1.0 % 02/19/24 14:56 Absolute Monocytes 0.4 10^3/cmm (0.1-0.6) 02/19/24 14:56 Eosinophils (Manual) 0 % 02/19/24 14:56 Absolute Eosinophils 0.0 10^3/cmm (0.0-0.7) 02/19/24 14:56 Basophils (Manual) 0.0 % 02/19/24 14:56 Absolute Basophils 0.0 10^3/cmm (0.0-0.2) 02/19/24 14:56 Metamyelocytes 5.0 % 02/19/24 14:56 Myelocytes 2.0 % 02/19/24 14:56 Platelet Estimate Normal (Normal) 02/19/24 14:56 Giant Platelets 1+ H 02/19/24 14:56 Anisocytosis 1+ H 02/19/24 14:56 Macrocytosis Trace 02/19/24 14:56 Specimen Type Arterial 02/19/24 14:50 Sample Site Radial, right 02/19/24 14:50 ABG pH 6.85 (7.35-7.45) L* 02/19/24 14:50 ABG pCO2 81.7 mmHg (35-45) H* 02/19/24 14:50 ABG pO2 66.0 mmHg (80.0-100.0) L 02/19/24 14:50 ABG HCO3 14.2 mmol/L (22-26) L 02/19/24 14:50 ABG O2 Saturation 77.3 02/19/24 14:50 ABG Base Excess -19.7 mmol/L (-2.0-2.0) L 02/19/24 14:50 Amadou Test Pos 02/19/24 14:50 A-a O2 Gradient Not Reportable 02/19/24 14:50 Hematocrit 32.3 % (42-52) L 02/19/24 14:50 Hgb O2 Saturation 76.0 % (95-100) L 02/19/24 14:50 Carboxyhemoglobin 0.6 %THgb (0.4-20.1) 02/19/24 14:50 Methemoglobin 1.2 % (0.4-1.5) 02/19/24 14:50 Total Hemoglobin 10.6 g/dL (14-18) L 02/19/24 14:50 Sodium 127.0 mmol/L (131-143) L 02/19/24 14:50 Potassium 9.4 mmol/L (3.5-5.0) H 02/19/24 14:50 Glucose > 1080.0 mg/dL (70-115) H 02/19/24 14:50 Ionized Calcium 1.9 mmol/L (1.1-1.4) H* 02/19/24 14:50 O2 Delivery Device Ambu 02/19/24 14:50 O2 Liters/Min 15.0 % 02/19/24 14:50 Picc Nurse ID Walci 02/19/24 14:50 Sodium 123 mmol/L (136-145) L 02/19/24 14:56 Potassium 9.7 mmol/L (3.5-5.1) H* 02/19/24 14:56 Chloride 71 mmol/L (98-107) L 02/19/24 14:56 Carbon Dioxide 12 mmol/L (22-29) L 02/19/24 14:56 Anion Gap 49.7 (5-19) H 02/19/24 14:56 BUN 51 mg/dL (8-23) H 02/19/24 14:56 Creatinine 2.7 mg/dL (0.7-1.2) H 02/19/24 14:56 GFR Calculation 23.8 mL/min (90-130) L 02/19/24 14:56 Glucose 1391 mg/dL (65-115) H* 02/19/24 14:56 Calculated Osmolality 341 mOsm/kg (285-295) H 02/19/24 14:56 Lactic Acid 12.3 mmol/L (0.5-2.2) H* 02/19/24 14:56 Calcium 14.9 mg/dL (8.5-10.5) H* 02/19/24 14:56 Total Bilirubin 0.2 mg/dL (0.15-1.2) 02/19/24 14:56 AST 483 U/L (0-40) H 02/19/24 14:56 ALT 272 U/L (0-41) H 02/19/24 14:56 Alkaline Phosphatase 167 U/L (40-130) H 02/19/24 14:56 Troponin T Baseline 94 ng/L (0-15) H 02/19/24 14:56 C-Reactive Protein 3.0 mg/L (0.0-4.9) 02/19/24 14:56 Total Protein 5.3 g/dL (6.6-8.7) L 02/19/24 14:56 Albumin 3.0 g/dL (3.5-5.2) L 02/19/24 14:56 Globulin 2.3 g/dL (1.3-4.6) 02/19/24 14:56 Serum Ketones Positive (Negative) H 02/19/24 14:56 All radiology interpretation(s) finalized by discharge Critical Care Time 2 Critical Care Time: Critical Care Time: Yes Total Critical Care Time: 60 Attestation: The high probability of a clinically significant, sudden or life threatening deterioration of the patient's cardiovascular respiratory system(s) required my full and direct attention, intervention and personal management. The critical care time is as shown. This time is in addition to time spent performing any reported procedures but includes the following: [x] Data and vital sign review and interpretation [x] Patient assessment, examination and intervention [x] Documentation [x] Medication orders and management Discharge Plan Discharge Patient Disposition: Clinical Impression: Diabetic ketoacidosis, Type 1 diabetes, Cardiac arrest, Acute hyperkalemia Condition: Stable Prescriptions: No Action insulin aspart U-100 [Novolog FlexPen U-100 Insulin] 100 unit/mL (3 mL) insulin pen 50 unit SUBCUT DAILY 30 Days Qty: 45 2RF Rx Instructions: Per sliding scale Max 50 IU daily ascorbate calcium (vitamin C) 500 mg tablet 500 mg PO DAILY albuterol sulfate [ProAir HFA] 90 mcg/actuation HFA aerosol inhaler 2 puff inhalation QID PRN (Reason: Shortness Of Breath) ferrous sulfate 325 mg (65 mg iron) tablet 325 mg PO DAILY atorvastatin 10 mg tablet 10 mg PO DAILY multivitamin Tablet 1 tab PO DAILY omega-3 fatty acids 1,000 mg capsule 1,000 mg PO DAILY (DME) dexcom G6 Reciever See Rx Instructions .Route .MEDSUPPLY Qty: 1 2RF Rx Instructions: Change once every year as directed (DME) Dexcom G6 Sensor Device See Rx Instructions .ROUTE .MEDSUPPLY Qty: 9 2RF Rx Instructions: change every 10 days (DME) Dexcom G7 Preload Supervisor Misc See Rx Instructions .Route Qty: 1 0RF Rx Instructions: As directed (DME) Dexcom G7 Sensor Device See Rx Instructions .Route Qty: 9 1RF Rx Instructions: As directed insulin glargine 100 unit/mL solution 50 unit SUBCUT DAILY Qty: 15 3RF lisinopril 10 mg Tablet 5 mg PO DAILY Hold Instructions: Resume on 08/18/22. fluticasone propion-salmeterol 250-50 mcg/dose blister with device 1 inh INHALATION BID PRN Referrals: Ava Hunt FNP [Primary Care Provider] - Coding Level of Care Code ED Television Tube Inspector for Chioma Grant
--- NOTE | 2024-02-19 16:21 | PC.NURSE ---
this nurse approached pt vehicle and pts brother stated he's in a diabetic coma . pt was in the floorboard of his car and was not breathing. this nurse attempted to palpate a carotid and radial pulse. no pulses palpated. pt was cyanotic. jason BARGER and wen RN assisted in getting pt into a wheelchair and to room 7. provider was in room and cpr was initiated at 1442. see hotel housekeeper code sheet for code details.
[2024-02-19 16:53] LABS: Reflex Lactate Order REFLEX LACTIC ORDERD
--- NOTE | 2024-02-19 16:57 | PC.NURSE ---
AFTER DISCUSSION WITH FAMILY AND FAMILIA, ALL CRITICAL MEDICATIONS AND DRIPS ENDED AT 1657. PATIENT EXTUBATED AT 1700.
--- NOTE | 2024-02-19 17:19 | PC.NURSE ---
PATIENT 1718.
[2024-02-19 18:25] VITALS: BP 0/0; PULSE 0; O2SAT 0
--- NOTE | 2024-02-19 18:40 | PC.NURSE ---
[place], [place] shipping and receiving associate was notified via phone (Jhony Grissom) [facility] to fax face sheet per shipping and receiving associate request.
== END 2024-02-19 17:19 | disposition expired ==
PROVIDERS: Emergency Medicine; Emergency Provider Family Medicine; PCP Nurse Practitioner
DX: I46.9 Cardiac arrest, cause unspecified (principal); E11.10 Type 2 diabetes mellitus with ketoacidosis without coma; E87.5 Hyperkalemia; Z79.4 Long term (current) use of insulin; F17.220 Nicotine dependence, chewing tobacco, uncomplicated; I25.2 Old myocardial infarction; J44.9 Chronic obstructive pulmonary disease, unspecified; I10 Essential (primary) hypertension; E78.2 Mixed hyperlipidemia
CPT/HCPCS: 31500; 36415; 36556; 36600; 71045; 80051; 80053; 82009; 82330; 82805; 83605; 84484; 85007; 85025; 86140; 87040; 87070; 87077; 87186; 87205; 93005; 94002; 94640; 94799; 96365; 96367; 99291; 99292; J0171; J0282; J0461; J3490; J7613